=== PATIENT | male | born 1940 | race Caucasian/White ===

== ENCOUNTER 2020-05-14 08:31 | Outpatient (REF) | payer MEDICARE, SELFPAY ==
[2020-05-14 10:21] LABS: MANUAL DIFF FLAG NO
[2020-05-14 10:46] LABS: Basophils Absolute Auto 0.1 X10*3/uL (0.0-0.2); Basophils Percent Auto 1.2 % (0-2); Eosinophils Absolute Auto 0.1 X10*3/uL (0.0-0.4); Eosinophils Percent Auto 2.5 % (0-4); Hematocrit 43.2 % (42-52); Hemoglobin 15.1 g/dl (14.0-18.0); Imm Gran Abs Auto 0.02 X10*3/uL (0.00-0.03); Imm Gran Pct Auto 0.4 % (0.0-0.4); Lymphocytes Absolute Auto 1.2 X10*3/uL (1.2-4.9); Lymphocytes Percent Auto 21.9 % (20-40); Mean Corpuscular Hemoglobin 32.8 pg (27.0-33.0); Mean Corpuscular Volume 93.7 fL (80-98); Mean Platelet Volume 9.5 fL (9.4-12.4); Monocytes Absolute Auto 0.6 X10*3/uL (0.1-1.2); Monocytes Percent Auto 10.4 % (2-11); Neutrophils Absolute Auto 3.6 X10*3/uL (2.0-8.3); Neutrophils Percent Auto 63.6 % (45-73); Platelet Count 328 X10*3/uL (160-400); Red Blood Count 4.61 X10*6/uL (4.60-5.80); Red Cell Distribution Width 11.9 % (11.0-16.0); White Blood Count 5.7 X10*3/uL (4.8-10.8)
[2020-05-14 11:01] LABS: Glucose Urine UA NEG (NEG); Leukocyte Esterase Urine NEG (NEG); Nitrite Urine NEG (NEG); Specific Gravity - Urine 1.025 (1.005-1.025); Urine Blood NEG (NEG); Urine Ketones NEG (NEG); Urine Protein NEG (NEG-TRACE)
[2020-05-14 11:08] LABS: Appearance Urine CLEAR; Color Urine YELLOW; UACC Culture Trigger NO
[2020-05-14 11:17] LABS: Alanine Aminotransferase 19 U/L (0-40); Albumin Level 4.5 g/dL (3.5-5.0); Alkaline Phosphatase 78 U/L (39-117); Anion Gap 12 (12-20); Aspartate Amino Transferase 21 U/L (5-37); Blood Urea Nitrogen 20 mg/dL (9-16); Calcium 9.4 mg/dL (8.4-10.2); Carbon Dioxide 26 mmol/L (22-29); Chloride 101 mmol/L (96-108); Cholesterol 190 mg/dL; Estimated Glomerular Filt Rate > 60; Glucose Fasting 103 mg/dL (60-99); HDL Cholesterol 60 mg/dL; LDL Cholesterol Calculated 118 mg/dl; Potassium 4.4 mmol/l (3.3-5.1); Sodium 135 mmol/L (135-145); Total Protein 7.8 g/dL (6.5-8.0); Triglycerides 64 mg/dL; Uric Acid 5.7 mg/dL (3.4-7.0)
[2020-05-14 11:27] LABS: Mucus Urine 3+ /LPF; RBC Urine 0 /HPF (0); WBC Urine 0 /HPF (0-4)
[2020-05-14 11:39] LABS: TSH reflex Free T4 1.58 mIU/mL (0.32-4.0)
== END 2020-05-14 08:32 | disposition home or self-care (01) ==
LOC: HO.10HDL 08:31
PROVIDERS: Visit Provider Internal Medicine
DX: I10 Essential (primary) hypertension (principal); E78.5 Hyperlipidemia, unspecified; R73.01 Impaired fasting glucose; E79.0 Hyperuricemia without signs of inflammatory arthritis and tophaceous disease; K21.9 Gastro-esophageal reflux disease without esophagitis; E66.9 Obesity, unspecified
CPT/HCPCS: 36415; 80053; 80061; 81003; 81015; 84443; 84550; 85025

== ENCOUNTER 2020-06-12 10:37 | Outpatient (REF) | payer MEDICARE, SELFPAY | END 2020-06-12 10:38 | disposition home or self-care (01) | LOC: HO.LAB 10:37 | PROVIDERS: PCP Internal Medicine; Visit Provider Internal Medicine | DX: Z20.828 Contact with and (suspected) exposure to other viral communicable diseases (principal) | CPT/HCPCS: C9803; U0003 ==

== ENCOUNTER 2020-07-31 14:22 | Outpatient (REF) | payer MEDICARE, SELFPAY | END 2020-07-31 14:23 | disposition home or self-care (01) | LOC: HO.LAB 14:22 | PROVIDERS: PCP Internal Medicine; Visit Provider Internal Medicine | DX: Z20.828 Contact with and (suspected) exposure to other viral communicable diseases (principal) | CPT/HCPCS: 36415; U0003 ==

== ENCOUNTER 2020-08-27 | Outpatient (REF) | payer MEDICARE, SELFPAY | END 2020-08-27 00:01 | disposition home or self-care (01) | LOC: HO.VC | PROVIDERS: Visit Provider Internal Medicine | DX: Z23 Encounter for immunization (principal) | CPT/HCPCS: 0011A ==

== ENCOUNTER 2020-09-15 07:43 | Outpatient (REF) | payer MEDICARE, SELFPAY ==
[2020-09-15 10:18] LABS: MANUAL DIFF FLAG NO
[2020-09-15 10:22] LABS: Basophils Absolute Auto 0.1 X10*3/uL (0.0-0.2); Eosinophils Absolute Auto 0.1 X10*3/uL (0.0-0.4); Eosinophils Percent Auto 2.9 % (0-4); Hematocrit 40.7 % (42-52); Imm Gran Abs Auto 0.01 X10*3/uL (0.00-0.03); Imm Gran Pct Auto 0.2 % (0.0-0.4); Lymphocytes Absolute Auto 1.1 X10*3/uL (1.2-4.9); Lymphocytes Percent Auto 23.1 % (20-40); Mean Corpuscular HGB Conc 34.4 g/dl (31.0-36.0); Mean Corpuscular Hemoglobin 32.2 pg (27.0-33.0); Mean Corpuscular Volume 93.6 fL (80-98); Mean Platelet Volume 9.7 fL (9.4-12.4); Monocytes Absolute Auto 0.5 X10*3/uL (0.1-1.2); Neutrophils Percent Auto 61.8 % (45-73); Platelet Count 254 X10*3/uL (160-400); Red Blood Count 4.35 X10*6/uL (4.60-5.80); Red Cell Distribution Width 11.9 % (11.0-16.0); White Blood Count 4.9 X10*3/uL (4.8-10.8)
[2020-09-15 10:43] LABS: Glucose Urine UA NEG (NEG); Leukocyte Esterase Urine NEG (NEG); Nitrite Urine NEG (NEG); Specific Gravity - Urine >= 1.030 (1.005-1.025); Urine Blood NEG (NEG); Urine Ketones NEG (NEG); Urine Protein NEG (NEG-TRACE)
[2020-09-15 10:50] LABS: Alanine Aminotransferase 18 U/L (0-40); Albumin Level 4.1 g/dL (3.5-5.0); Alkaline Phosphatase 69 U/L (39-117); Anion Gap 10 (12-20); Aspartate Amino Transferase 19 U/L (5-37); Bilirubin Total 0.9 mg/dL (0.0-1.0); Blood Urea Nitrogen 23 mg/dL (9-16); Calcium 8.9 mg/dL (8.4-10.2); Carbon Dioxide 29 mmol/L (22-29); Chloride 106 mmol/L (96-108); Cholesterol 165 mg/dL; Estimated Glomerular Filt Rate > 60; Glucose Fasting 103 mg/dL (60-99); HDL Cholesterol 52 mg/dL; LDL Cholesterol Calculated 103 mg/dl; Potassium 4.5 mmol/L (3.3-5.1); Sodium 140 mmol/L (135-145); Triglycerides 54 mg/dL
[2020-09-15 10:54] LABS: Appearance Urine HAZY; Color Urine YELLOW
[2020-09-15 11:16] LABS: TSH reflex Free T4 1.76 uIU/mL (0.32-4.0)
== END 2020-09-15 07:44 | disposition home or self-care (01) ==
LOC: HO.10HDL 07:43
PROVIDERS: Visit Provider Internal Medicine
DX: I10 Essential (primary) hypertension (principal); K21.9 Gastro-esophageal reflux disease without esophagitis; E78.00 Pure hypercholesterolemia, unspecified
CPT/HCPCS: 36415; 80053; 80061; 81003; 84443; 85025

== ENCOUNTER 2020-09-24 | Outpatient (REF) | payer MEDICARE, SELFPAY | END 2020-09-24 00:01 | disposition home or self-care (01) | LOC: HO.VC | PROVIDERS: Visit Provider Internal Medicine | DX: Z23 Encounter for immunization (principal) | CPT/HCPCS: 0012A ==

== ENCOUNTER 2021-01-19 07:43 | Outpatient (REF) | payer MEDICARE, SELFPAY ==
[2021-01-19 09:13] LABS: MANUAL DIFF FLAG NO
[2021-01-19 09:14] LABS: Glucose Urine UA NEG (NEG); Leukocyte Esterase Urine NEG (NEG); Nitrite Urine NEG (NEG); Urine Blood NEG (NEG); Urine Ketones NEG (NEG); Urine Protein NEG (NEG-TRACE)
[2021-01-19 09:19] LABS: Appearance Urine HAZY; Color Urine YELLOW
[2021-01-19 09:21] LABS: Basophils Absolute Auto 0.1 X10*3/uL (0.0-0.2); Basophils Percent Auto 1.2 % (0-2); Eosinophils Absolute Auto 0.1 X10*3/uL (0.0-0.4); Eosinophils Percent Auto 2.2 % (0-4); Hemoglobin 14.7 g/dl (14.0-18.0); Imm Gran Abs Auto 0.01 X10*3/uL (0.00-0.03); Imm Gran Pct Auto 0.2 % (0.0-0.4); Lymphocytes Absolute Auto 1.2 X10*3/uL (1.2-4.9); Lymphocytes Percent Auto 24.8 % (20-40); Mean Corpuscular HGB Conc 34.2 g/dl (31.0-36.0); Mean Corpuscular Hemoglobin 31.8 pg (27.0-33.0); Mean Corpuscular Volume 93.1 fL (80-98); Mean Platelet Volume 9.6 fL (9.4-12.4); Monocytes Absolute Auto 0.5 X10*3/uL (0.1-1.2); Monocytes Percent Auto 10.7 % (2-11); Neutrophils Percent Auto 60.9 % (45-73); Platelet Count 267 X10*3/uL (160-400); Red Blood Count 4.62 X10*6/uL (4.60-5.80); Red Cell Distribution Width 12.4 % (11.0-16.0)
[2021-01-19 09:37] LABS: Estimated Average Glucose 105 mg/dL; Hemoglobin A1C 137.4802 umol/L; Hemoglobin A1c % 5.3 %
[2021-01-19 09:44] LABS: Alanine Aminotransferase 20 U/L (0-40); Albumin Level 4.2 g/dL (3.5-5.0); Alkaline Phosphatase 70 U/L (39-117); Anion Gap 9 (12-20); Aspartate Amino Transferase 20 U/L (5-37); Bilirubin Total 0.9 mg/dL (0.0-1.0); Blood Urea Nitrogen 22 mg/dL (9-16); Calcium 9.5 mg/dL (8.4-10.2); Carbon Dioxide 30 mmol/L (22-29); Chloride 102 mmol/L (96-108); Cholesterol 181 mg/dL; Estimated Glomerular Filt Rate > 60; Glucose Fasting 109 mg/dL (60-99); HDL Cholesterol 63 mg/dL; LDL Cholesterol Calculated 107 mg/dl; Potassium 4.7 mmol/L (3.3-5.1); Sodium 136 mmol/L (135-145); Total Protein 7.2 g/dL (6.5-8.0); Triglycerides 57 mg/dL
[2021-01-19 10:04] LABS: TSH reflex Free T4 1.28 uIU/mL (0.32-4.0)
== END 2021-01-19 07:44 | disposition home or self-care (01) ==
LOC: HO.LAB 07:43
PROVIDERS: PCP Internal Medicine; Visit Provider Internal Medicine
DX: E78.00 Pure hypercholesterolemia, unspecified (principal); I10 Essential (primary) hypertension; R73.01 Impaired fasting glucose; E66.9 Obesity, unspecified; K21.9 Gastro-esophageal reflux disease without esophagitis
CPT/HCPCS: 36415; 80053; 80061; 81003; 83036; 84443; 85025

== ENCOUNTER 2021-06-05 09:44 | Outpatient (REF) | payer MEDICARE, SELFPAY ==
--- NOTE | ~2021-06-05 | XR_ITS ---
EXAMINATION: XR CHEST CLINICAL INFORMATION: Cough COMPARISON: None TECHNIQUE: 2 views of the chest were obtained. FINDINGS: The cardiac and mediastinal contours are normal. The lungs are clear. There is no pleural effusion or pneumothorax. There are degenerative changes of the spine. XR/XR chest 2V IMPRESSION: Unremarkable examination.
== END 2021-06-05 09:45 | disposition home or self-care (01) ==
LOC: HO.XRAY 09:44
PROVIDERS: PCP Internal Medicine; Visit Provider Internal Medicine
DX: R05.8 Other specified cough (principal); R07.89 Other chest pain; E78.00 Pure hypercholesterolemia, unspecified; I10 Essential (primary) hypertension
CPT/HCPCS: 71046

== ENCOUNTER → 2021-06-22 08:33 | Outpatient (REF) | payer MEDICARE, SELFPAY ==
--- NOTE | 2021-06-22 08:37 | CA_ITS ---
Acquisition Time: 2021-06-22 09:49:09 Total Exercise Time: 00:02:42 Test Indications: Dyspnea Medications: LOSARTAN SIMVASTATIN Protocol: MAJOR Max HR: 150 BPM 106% of Pred: 141 BPM Max BP: 150/083 mmHG Max Work Load: 4.6 METS Exercise stress test with exercise 2 min 42 sec of Major protocol, without anginal symptoms, with frequent PACs at baseline and throughout exercise and recovery, occassional PVCs, with brisk chronotropic response to exercise achieving 106% MPHR, with normotensive response to exercise, with borderline ST changes, without EKG changes meeting criteria for ischemia. Test reviewed with Dr. Logan. Message sent to Dr Vergara with recommendation for holter monitor, consider cardiology consult. Referred By: Mando Vergara Overread By: RAAD MEIER
== END ==
LOC: HO.CARD 08:33
PROVIDERS: Visit Provider Internal Medicine
DX: R07.89 Other chest pain (principal); I10 Essential (primary) hypertension; E78.00 Pure hypercholesterolemia, unspecified
CPT/HCPCS: 93017

== ENCOUNTER 2021-07-13 08:47 | Outpatient (REF) | payer MEDICARE, SELFPAY ==
--- NOTE | ~2021-07-13 | US_ITS ---
EXAMINATION: US ABDOMEN COMPLETE CLINICAL INFORMATION: Unspecified abdominal pain.GERD. COMPARISON: Abdominal ultrasound 07/22/2016 TECHNIQUE: Real-time imaging of the abdominal viscera. Technically difficult study secondary to bowel gas. FINDINGS: PANCREAS: The tail is obscured by overlying bowel gas but otherwise the pancreas is unremarkable. ABDOMINAL AORTA: Unremarkable INFERIOR VENA CAVA: Visualized portions are normal. LIVER: Normal. The liver is normal in size. The liver contour is normal. Parenchymal echogenicity is normal. No focal hepatic lesion. There is no intrahepatic biliary duct dilatation seen. The left hepatic lobe is suboptimally visualized secondary to bowel gas. GALLBLADDER: The gallbladder is physiologically distended without evidence of stones, polyps, wall thickening or pericholecystic fluid. Dense bile or sludge is evident within the gallbladder. There is no sonographic Barrett sign. COMMON BILE DUCT: Normal in caliber measuring 0.38 cm in diameter. RIGHT KIDNEY: Normal. No hydronephrosis. No renal calculi or focal parenchymal lesions. The kidney measures 12.0 cm in maximum dimension. LEFT KIDNEY: Normal. No hydronephrosis. No renal calculi or focal parenchymal lesions. The kidney measures 12.0 cm in maximum dimension. SPLEEN: Normal. The spleen measures 10.2 cm in maximum dimension. FREE FLUID: None. US/US abdomen complete IMPRESSION: 1. Dense bile or sludge within the gallbladder. 2. Otherwise unremarkable abdomen ultrasound.
== END 2021-07-13 08:48 | disposition home or self-care (01) ==
LOC: HO.HMGCX 08:47
PROVIDERS: PCP Internal Medicine; Visit Provider Internal Medicine
DX: R10.9 Unspecified abdominal pain (principal)
CPT/HCPCS: 76700

== ENCOUNTER 2021-07-23 11:44 | Outpatient (REF) | payer MEDICARE, SELFPAY ==
--- NOTE | ~2021-07-23 | XR_ITS ---
EXAMINATION: XR KNEE, RIGHT CLINICAL INFORMATION: Unspecified inferior right lower leg COMPARISON: None TECHNIQUE: Four views of the right knee. FINDINGS: No fracture or dislocation. There is mild tricompartmental cartilage space loss. Bony spurring in the patellofemoral compartment. Patellar tendon enthesophyte. Bony spurring in the tibial spines. No joint effusion. Vascular calcifications. XR/XR knee RT 3V IMPRESSION: Mild tricompartmental degenerative change.
== END 2021-07-23 11:45 | disposition home or self-care (01) ==
LOC: HO.XRAY 11:44
PROVIDERS: PCP Internal Medicine; Visit Provider Nurse Practitioner Acute Care
DX: S89.91XA Unspecified injury of right lower leg, initial encounter (principal)
CPT/HCPCS: 73562

== ENCOUNTER 2021-07-31 15:48 | Outpatient (REF) | payer MEDICARE, SELFPAY ==
[2021-07-31 16:47] LABS: Hematocrit 40.9 % (42.0-52.0); Hemoglobin 13.8 g/dl (14.0-18.0); Mean Corpuscular HGB Conc 33.7 g/dl (31.0-36.0); Mean Corpuscular Volume 91.9 fL (80.0-98.0); Mean Platelet Volume 9.6 fL (9.4-12.4); Platelet Count 275 X10*3/uL (160-400); Red Blood Count 4.45 X10*6/uL (4.60-5.80); Red Cell Distribution Width 12.2 % (11.0-16.0); White Blood Count 8.4 X10*3/uL (4.8-10.8)
[2021-07-31 17:07] LABS: Alanine Aminotransferase 21 U/L (0-40); Albumin Level 4.3 g/dL (3.5-5.0); Alkaline Phosphatase 83 U/L (39-117); Anion Gap 14 (12-20); Aspartate Amino Transferase 32 U/L (5-37); Bilirubin Total 0.7 mg/dL (0.0-1.0); Blood Urea Nitrogen 21 mg/dL (9-16); Calcium 9.7 mg/dL (8.4-10.2); Carbon Dioxide 26 mmol/L (22-29); Chloride 103 mmol/L (96-108); Estimated Glomerular Filt Rate > 60; Glucose Random 126 mg/dL (60-115); Potassium 4.9 mmol/L (3.3-5.1); Sodium 138 mmol/L (135-145); Total Protein 7.7 g/dL (6.5-8.0)
== END 2021-07-31 15:49 | disposition home or self-care (01) ==
LOC: HO.LAB 15:48
PROVIDERS: PCP Internal Medicine; Visit Provider Nurse Practitioner Family
DX: K21.9 Gastro-esophageal reflux disease without esophagitis (principal)
CPT/HCPCS: 36415; 80053; 85027

== ENCOUNTER → 2021-08-19 08:48 | Outpatient (BNVA) | payer MEDICARE, SELFPAY | PROVIDERS: PCP Internal Medicine; Referring Provider Internal Medicine; Visit Provider Internal Medicine | DX: R94.31 Abnormal electrocardiogram [ECG] [EKG] (principal); R06.02 Shortness of breath; I49.8 Other specified cardiac arrhythmias; I10 Essential (primary) hypertension | CPT/HCPCS: 93005; 99202 ==

== ENCOUNTER → 2021-08-21 12:51 | Outpatient (REF) | payer MEDICARE, SELFPAY ==
--- NOTE | 2021-08-21 07:44 | HM_ITS ---
Total monitoring time 4 days. Underlying rhythm is sinus. Minimum heart rate 52/Min. Maximum 145/Min. Average 80/Min. No atrial fibrillation or flutter or AV blocks or pauses. Frequent supraventricular ectopy. [place] of 6%. 12 supraventricular episodes, longest 8 beats. Occasional ventricular ectopy; 2 morphologies and 16 couplets; longest run 4 beats-1 episode. Overall burden 0.3%. No patient events. MTDD
--- NOTE | 2021-08-21 13:16 | CA_ITS ---
Transthoracic Echocardiogram Patient (Last, First, Middle): Luis Miguel Bass J Gender: Male Date of : 1940 Age: 81 Procedure Date: 08/21/2021 Procedure Type: Transthoracic Echocardiogram Location: OP Height: 187.96 cm Weight: 99.79 kg BSA: 2.26 m2 Heart Rate: bpm BP: 128 / 80 mmHg Business Systems Analyst: Referring MD: Seymour Logan MD Symptoms: R06.02 - Shortness of breath Study Quality: Fair ECG Rhythm: Sinus Conclusions: - 1. mildly reduced LV systolic function with LVEF of 45-50% with mild LVH with impaired relaxation filling pattern with regional wall motion abnormality in LAD territory 2. Normal cardiac valvular Doppler 3. Normal RV systolic pressure 4. No pericardial effusion Findings Left Ventricle Normal left ventricular cavity size. There is mildly increased left ventricular wall thickness. The left ventricular systolic function is mildly decreased. The visually estimated ejection fraction is between 45-50%. Spectral Doppler is indicative of an impaired relaxation filling pattern. E/E prime ratio is between 8 and 15 consistent with indeterminate filling pressures. Wall Motion Rest Echo Findings The mid anterior, mid inferoseptal, and mid anteroseptal segments are hypokinetic. The apex, apical anterior, apical lateral, and apical septum segments are akinetic. All other scored wall segments showed normal motion. Right Ventricle Normal right ventricular cavity size and systolic function. Atria The left atrium is normal in size. There is no evidence of interatrial shunt. The right atrium is normal in size. Aortic Valve The aortic valve structure and function is likely normal. There is no aortic valve stenosis. There is no aortic valve regurgitation. Mitral Valve There is mild anterior mitral leaflet thickening. There is mild mitral annular calcification. There is trace mitral valve regurgitation. There is no mitral valve stenosis. Pulmonic Valve The pulmonic valve was not well visualized. Tricuspid Valve Likely normal tricuspid valve structure and function. There is trace tricuspid valve regurgitation. The right ventricular systolic pressure is normal. The right ventricular systolic pressure is 24 mmHg. Normal right atrial pressure. There is no evidence of pulmonary hypertension. Great Vessels All visible segments of the aorta are normal in size. The pulmonary artery was not well visualized. Venous The inferior vena cava is normal in size and collapses greater than 50% with inspiration. Pericardium/Pleural There is no evidence of pericardial effusion. Prior Study Comparison No prior study available for comparison. Measurements 2D Linear Measurements IVSd: 1.28 0.6-0.9/0.6-1.0 cm LVIDd: 4.79 3.9-5.3/4.2-5.9 cm LVIDd Index: 2.12 2.4-3.2/2.2-3.1 cm/m2 LVIDs: 3.67 2.0-3.6 cm LVPWd: 1.22 0.7-1.1 cm LA Diam: 3.40 2.7-3.8/3.0-4.0 cm LAIDs Index: 1.50 1.5-2.3 cm/m2 LV Mass: 288.62 67-162/88-224 g LV Mass Index: 127.71 43-95/49-115 g/m2 LVOT Diam: 2.50 3.0+(-)1.3 cm 2D Systolic Function EF 4C: 51.90 >55% EF 2C: 42.40 >55% Mitral Valve MV Pk E: 0.59 MV PK A: 1.03 MV Decel Time: 166.00 E/A: 0.60 E'Lateral: 9.03 E'Medial: 6.85 E/E' Med: 8.60 E/E' Lat: 6.50 PHT: 49.00 MVA PHT: 4.49 Decel Dodge: 3.54 Aortic Valve AoV Pk Isidro: 1.37 AoV Mn Isidro: 0.87 AoV VTI: 0.26 AoV Pk Grad: 8.00 Aov Mn Grad: 4.00 VERONICA Cont.VTI: 3.10 LVOT LVOT Pk Isidro: 0.96 LVOT Mn Isidro: 0.65 LVOT VTI: 0.17 LVOT Pk Grad: 4.00 LVOT Mn Grad: 2.00 LVOT Diam: 2.50 LVOT Area: 4.91 Diastolic Function MV Pk E: 0.59 MV Pk A: 1.03 E/A: 0.60 E'Medial: 6.85 E/E' Med: 8.60 E' Laterial: 9.03 E/E' Lat: 6.50 Tricuspid Valve TR Pk Isidro: 2.28 TR Pk Grad: 21.00 RA Press: 3.00 RVSP: 24.00 Updated in Other Vendor System with Status of Final Tarik Thayer MD electronically signed on 08/21/2021 3:58:10 PM with status of Final
== END ==
LOC: HO.CARD 12:51
PROVIDERS: Visit Provider Internal Medicine
DX: I49.8 Other specified cardiac arrhythmias (principal)
CPT/HCPCS: 93242; 93306; Q9957

== ENCOUNTER 2021-08-24 14:42 | Outpatient (REF) | payer MEDICARE, SELFPAY ==
[2021-08-24 16:05] LABS: Hematocrit 40.6 % (42.0-52.0); Hemoglobin 13.7 g/dl (14.0-18.0); Mean Corpuscular HGB Conc 33.7 g/dl (31.0-36.0); Mean Corpuscular Volume 91.9 fL (80.0-98.0); Mean Platelet Volume 9.8 fL (9.4-12.4); Platelet Count 302 X10*3/uL (160-400); Red Blood Count 4.42 X10*6/uL (4.60-5.80); Red Cell Distribution Width 12.5 % (11.0-16.0); White Blood Count 6.3 X10*3/uL (4.8-10.8)
[2021-08-24 16:07] LABS: INTERNATIONAL NORM RATIO 1.1 (0.9-1.1); Prothrombin Time 12.7 SEC (9.9-13.0)
[2021-08-24 16:18] LABS: Anion Gap 13 (12-20); Blood Urea Nitrogen 20 mg/dL (9-16); Calcium 9.4 mg/dL (8.4-10.2); Carbon Dioxide 27 mmol/L (22-29); Chloride 104 mmol/L (96-108); Estimated Glomerular Filt Rate > 60; Glucose Random 119 mg/dL (60-115); Sodium 140 mmol/L (135-145)
== END 2021-08-24 14:43 | disposition home or self-care (01) ==
LOC: HO.LAB 14:42
PROVIDERS: PCP Internal Medicine; Referring Provider Internal Medicine; Visit Provider Internal Medicine
DX: I25.10 Atherosclerotic heart disease of native coronary artery without angina pectoris (principal); I10 Essential (primary) hypertension; I49.8 Other specified cardiac arrhythmias; Z79.899 Other long term (current) drug therapy; Z87.891 Personal history of nicotine dependence
CPT/HCPCS: 36415; 80048; 85027; 85610; 99212

== ENCOUNTER → 2021-09-03 12:36 | Outpatient (BNVA) | payer MEDICARE, SELFPAY | PROVIDERS: PCP Internal Medicine; Referring Provider Internal Medicine; Visit Provider Internal Medicine | DX: I25.10 Atherosclerotic heart disease of native coronary artery without angina pectoris (principal); I10 Essential (primary) hypertension; I49.8 Other specified cardiac arrhythmias | CPT/HCPCS: 99212 ==

== ENCOUNTER 2021-10-06 08:05 | Outpatient (REF) | payer MEDICARE, SELFPAY ==
[2021-09-07 13:12] VITALS: BP 118/64; BP 132/60
[2021-10-06 08:24] LABS: MANUAL DIFF FLAG NO
[2021-10-06 08:37] LABS: Basophils Absolute Auto 0.1 X10*3/uL (0.0-0.2); Basophils Percent Auto 0.9 % (0-2); Eosinophils Absolute Auto 0.1 X10*3/uL (0.0-0.4); Eosinophils Percent Auto 2.6 % (0-4); Hematocrit 38.2 % (42.0-52.0); Hemoglobin 12.8 g/dl (14.0-18.0); Imm Gran Abs Auto 0.01 X10*3/uL (0.00-0.03); Imm Gran Pct Auto 0.2 % (0.0-0.4); Lymphocytes Absolute Auto 1.1 X10*3/uL (1.2-4.9); Mean Corpuscular HGB Conc 33.5 g/dl (31.0-36.0); Mean Corpuscular Hemoglobin 31.3 pg (27.0-33.0); Mean Corpuscular Volume 93.4 fL (80.0-98.0); Mean Platelet Volume 9.9 fL (9.4-12.4); Monocytes Absolute Auto 0.6 X10*3/uL (0.1-1.2); Monocytes Percent Auto 10.4 % (2-11); Neutrophils Absolute Auto 3.5 x10*3/uL (2.0-8.3); Neutrophils Percent Auto 65.9 % (45-73); Platelet Count 226 X10*3/uL (160-400); Red Blood Count 4.09 X10*6/uL (4.60-5.80); Red Cell Distribution Width 12.9 % (11.0-16.0); White Blood Count 5.3 X10*3/uL (4.8-10.8)
[2021-10-06 08:50] LABS: Estimated Average Glucose 114 mg/dL; Hemoglobin A1c % 5.6 %
[2021-10-06 09:03] LABS: Appearance Urine CLEAR; Color Urine YELLOW; Glucose Urine UA NEG (NEG); Leukocyte Esterase Urine NEG (NEG); Nitrite Urine NEG (NEG); Specific Gravity - Urine 1.025 (1.005-1.025); Urine Blood NEG (NEG); Urine Ketones NEG (NEG); Urine Protein NEG (NEG-TRACE)
[2021-10-06 09:05] LABS: Alanine Aminotransferase 26 U/L (0-40); Albumin Level 3.9 g/dL (3.5-5.0); Alkaline Phosphatase 87 U/L (39-117); Anion Gap 12 (12-20); Aspartate Amino Transferase 23 U/L (5-37); Blood Urea Nitrogen 22 mg/dL (9-16); Calcium 9.1 mg/dL (8.4-10.2); Carbon Dioxide 27 mmol/L (22-29); Chloride 104 mmol/L (96-108); Cholesterol 128 mg/dL; Estimated Glomerular Filt Rate > 60; Glucose Fasting 95 mg/dL (60-99); HDL Cholesterol 42 mg/dL; LDL Cholesterol Calculated 76 mg/dl; Potassium 4.5 mmol/L (3.3-5.1); Sodium 138 mmol/L (135-145); Total Protein 6.8 g/dL (6.5-8.0); Triglycerides 51 mg/dL
[2021-10-06 09:20] LABS: TSH reflex Free T4 1.21 uIU/mL (0.32-4.0); Vitamin D 25-OH Total 41.7 ng/mL (>30)
== END 2021-10-06 08:06 | disposition home or self-care (01) ==
LOC: HO.LAB 08:05
PROVIDERS: PCP Internal Medicine; Visit Provider Internal Medicine
DX: E55.9 Vitamin D deficiency, unspecified (principal); E78.00 Pure hypercholesterolemia, unspecified; R73.01 Impaired fasting glucose; I10 Essential (primary) hypertension
CPT/HCPCS: 36415; 80053; 80061; 81003; 82306; 83036; 84443; 85025

== ENCOUNTER → 2021-12-02 09:18 | Outpatient (BNVA) | payer MEDICARE, SELFPAY ==
[2021-09-07 13:12] VITALS: BP 118/64; BP 132/60
[2021-12-01 09:44] VITALS: BP 118/60; BMI 28.0
== END ==
PROVIDERS: PCP Internal Medicine; Referring Provider Internal Medicine; Visit Provider Internal Medicine
DX: I25.10 Atherosclerotic heart disease of native coronary artery without angina pectoris (principal); I49.8 Other specified cardiac arrhythmias; I10 Essential (primary) hypertension
CPT/HCPCS: 99212

== ENCOUNTER 2022-01-26 07:40 | Outpatient (REF) | payer MEDICARE, SELFPAY ==
[2021-12-01 09:44] VITALS: BMI 28.0
[2022-01-26 07:39] VITALS: BP 100/48; BP 110/52
[2022-01-26 10:24] LABS: MANUAL DIFF FLAG NO
[2022-01-26 10:31] LABS: Basophils Absolute Auto 0.1 X10*3/uL (0.0-0.2); Basophils Percent Auto 1.4 % (0-2); Eosinophils Absolute Auto 0.2 X10*3/uL (0.0-0.4); Hematocrit 38.2 % (42.0-52.0); Hemoglobin 12.7 g/dl (14.0-18.0); Imm Gran Abs Auto 0.02 X10*3/uL (0.00-0.03); Imm Gran Pct Auto 0.4 % (0.0-0.4); Lymphocytes Absolute Auto 0.9 X10*3/uL (1.2-4.9); Lymphocytes Percent Auto 17.9 % (20-40); Mean Corpuscular HGB Conc 33.2 g/dl (31.0-36.0); Mean Corpuscular Hemoglobin 31.6 pg (27.0-33.0); Mean Platelet Volume 10.2 fL (9.4-12.4); Monocytes Absolute Auto 0.6 X10*3/uL (0.1-1.2); Monocytes Percent Auto 11.2 % (2-11); Neutrophils Absolute Auto 3.3 x10*3/uL (2.0-8.3); Neutrophils Percent Auto 66.1 % (45-73); Platelet Count 250 X10*3/uL (160-400); Red Blood Count 4.02 X10*6/uL (4.60-5.80); Red Cell Distribution Width 12.6 % (11.0-16.0); White Blood Count 4.9 X10*3/uL (4.8-10.8)
[2022-01-26 10:39] LABS: Estimated Average Glucose 111 mg/dL; Hemoglobin A1c % 5.5 %
[2022-01-26 10:43] LABS: Appearance Urine CLEAR; Color Urine YELLOW; Glucose Urine UA NEG (NEG); Leukocyte Esterase Urine NEG (NEG); Nitrite Urine NEG (NEG); Specific Gravity - Urine 1.025 (1.005-1.025); Urine Blood NEG (NEG); Urine Ketones NEG (NEG); Urine Protein NEG (NEG-TRACE)
[2022-01-26 10:46] LABS: Alanine Aminotransferase 15 U/L (0-40); Alkaline Phosphatase 89 U/L (39-117); Anion Gap 13 (12-20); Aspartate Amino Transferase 21 U/L (5-37); Bilirubin Total 0.9 mg/dL (0.0-1.0); Blood Urea Nitrogen 24 mg/dL (9-16); Calcium 8.7 mg/dL (8.4-10.2); Carbon Dioxide 25 mmol/L (22-29); Chloride 104 mmol/L (96-108); Cholesterol 148 mg/dL; Estimated Glomerular Filt Rate > 60; Glucose Fasting 101 mg/dL (60-99); HDL Cholesterol 50 mg/dL; LDL Cholesterol Calculated 86 mg/dl; Potassium 4.6 mmol/L (3.3-5.1); Sodium 137 mmol/L (135-145); Total Protein 6.9 g/dL (6.5-8.0); Triglycerides 60 mg/dL
[2022-01-26 11:12] LABS: TSH reflex Free T4 1.95 uIU/mL (0.32-4.0); Vitamin D 25-OH Total 39.9 ng/mL (>30)
== END 2022-01-26 07:41 | disposition home or self-care (01) ==
LOC: HO.10HDL 07:40
PROVIDERS: Visit Provider Internal Medicine
DX: I10 Essential (primary) hypertension (principal); R73.01 Impaired fasting glucose; E55.9 Vitamin D deficiency, unspecified; E78.00 Pure hypercholesterolemia, unspecified
CPT/HCPCS: 36415; 80053; 80061; 81003; 82306; 83036; 84443; 85025

== ENCOUNTER 2022-05-25 07:40 | Outpatient (REF) | payer MEDICARE, SELFPAY ==
[2021-12-22 07:52] VITALS: BMI 28.0
[2022-05-25 10:34] LABS: MANUAL DIFF FLAG NO
[2022-05-25 10:42] LABS: Basophils Absolute Auto 0.1 X10*3/uL (0.0-0.2); Eosinophils Absolute Auto 0.2 X10*3/uL (0.0-0.4); Eosinophils Percent Auto 3.1 % (0-4); Hematocrit 37.8 % (42.0-52.0); Hemoglobin 12.8 g/dl (14.0-18.0); Imm Gran Abs Auto 0.01 X10*3/uL (0.00-0.03); Imm Gran Pct Auto 0.2 % (0.0-0.4); Lymphocytes Absolute Auto 1.1 X10*3/uL (1.2-4.9); Lymphocytes Percent Auto 21.9 % (20-40); Mean Corpuscular HGB Conc 33.9 g/dl (31.0-36.0); Mean Corpuscular Hemoglobin 31.8 pg (27.0-33.0); Monocytes Absolute Auto 0.5 X10*3/uL (0.1-1.2); Monocytes Percent Auto 10.4 % (2-11); Neutrophils Absolute Auto 3.1 x10*3/uL (2.0-8.3); Neutrophils Percent Auto 63.4 % (45-73); Platelet Count 235 X10*3/uL (160-400); Red Blood Count 4.02 X10*6/uL (4.60-5.80); Red Cell Distribution Width 12.7 % (11.0-16.0); White Blood Count 4.9 X10*3/uL (4.8-10.8)
[2022-05-25 10:53] LABS: Alanine Aminotransferase 20 U/L (0-40); Albumin Level 3.9 g/dL (3.5-5.0); Alkaline Phosphatase 85 U/L (39-117); Anion Gap 16 (12-20); Aspartate Amino Transferase 26 U/L (5-37); Bilirubin Total 0.7 mg/dL (0.0-1.0); Blood Urea Nitrogen 23 mg/dL (9-16); Calcium 9.1 mg/dL (8.4-10.2); Carbon Dioxide 25 mmol/L (22-29); Chloride 102 mmol/L (96-108); Cholesterol 158 mg/dL; Estimated Glomerular Filt Rate > 60; Glucose Fasting 98 mg/dL (60-99); HDL Cholesterol 56 mg/dL; LDL Cholesterol Calculated 90 mg/dl; Potassium 4.5 mmol/L (3.3-5.1); Sodium 138 mmol/L (135-145); Triglycerides 62 mg/dL
[2022-05-25 10:54] LABS: Estimated Average Glucose 111 mg/dL; Hemoglobin A1c % 5.5 %
[2022-05-25 11:17] LABS: TSH reflex Free T4 2.33 uIU/mL (0.32-4.0); Vitamin D 25-OH Total 42.3 ng/mL (>30)
[2022-05-25 11:44] LABS: Appearance Urine Clear; Color Urine Yellow; Glucose Urine UA Negative (Negative); Leukocyte Esterase Urine Negative (Negative); Nitrite Urine Negative (Negative); Urine Blood Negative (Negative); Urine Ketones Negative (Negative); Urine Protein Negative (Neg-Trace)
== END 2022-05-25 07:41 | disposition home or self-care (01) ==
LOC: HO.10HDL 07:40
PROVIDERS: Visit Provider Internal Medicine
DX: R73.01 Impaired fasting glucose (principal); E55.9 Vitamin D deficiency, unspecified; I10 Essential (primary) hypertension; E78.00 Pure hypercholesterolemia, unspecified
CPT/HCPCS: 36415; 80053; 80061; 81003; 82306; 83036; 84443; 85025

== ENCOUNTER → 2022-08-31 08:46 | Outpatient (BNVA) | payer MEDICARE, SELFPAY ==
[2021-12-22 07:52] VITALS: BMI 28.0
== END ==
PROVIDERS: PCP Internal Medicine; Referring Provider Internal Medicine; Visit Provider Internal Medicine
DX: I25.10 Atherosclerotic heart disease of native coronary artery without angina pectoris (principal); I10 Essential (primary) hypertension; I49.8 Other specified cardiac arrhythmias; G47.9 Sleep disorder, unspecified; Z79.82 Long term (current) use of aspirin; Z79.899 Other long term (current) drug therapy
CPT/HCPCS: 93005; 99212

== ENCOUNTER 2022-09-30 07:45 | Outpatient (REF) | payer MEDICARE, SELFPAY ==
[2021-12-22 07:52] VITALS: BMI 28.0
[2022-09-30 10:45] LABS: Appearance Urine Clear; Color Urine Yellow; Glucose Urine UA Negative (Negative); Leukocyte Esterase Urine Negative (Negative); Nitrite Urine Negative (Negative); Specific Gravity - Urine 1.025 (1.005-1.025); Urine Blood Negative (Negative); Urine Ketones Trace mg/dL (Negative); Urine Protein Negative (Neg-Trace)
[2022-09-30 10:46] LABS: MANUAL DIFF FLAG NO
[2022-09-30 11:06] LABS: Basophils Absolute Auto 0.1 X10*3/uL (0.0-0.2); Basophils Percent Auto 1.1 % (0-2); Eosinophils Absolute Auto 0.1 X10*3/uL (0.0-0.4); Eosinophils Percent Auto 2.5 % (0-4); Hematocrit 39.2 % (42.0-52.0); Hemoglobin 13.2 g/dl (14.0-18.0); Imm Gran Abs Auto 0.01 X10*3/uL (0.00-0.03); Imm Gran Pct Auto 0.2 % (0.0-0.4); Lymphocytes Absolute Auto 1.1 X10*3/uL (1.2-4.9); Lymphocytes Percent Auto 19.5 % (20-40); Mean Corpuscular HGB Conc 33.7 g/dl (31.0-36.0); Mean Corpuscular Volume 94.9 fL (80.0-98.0); Mean Platelet Volume 10.3 fL (9.4-12.4); Monocytes Absolute Auto 0.6 X10*3/uL (0.1-1.2); Neutrophils Absolute Auto 3.7 x10*3/uL (2.0-8.3); Neutrophils Percent Auto 66.7 % (45-73); Platelet Count 225 X10*3/uL (160-400); Red Blood Count 4.13 X10*6/uL (4.60-5.80); Red Cell Distribution Width 12.5 % (11.0-16.0); White Blood Count 5.6 X10*3/uL (4.8-10.8)
[2022-09-30 11:18] LABS: Alanine Aminotransferase 29 U/L (0-40); Albumin Level 3.7 g/dL (3.5-5.0); Alkaline Phosphatase 79 U/L (39-117); Anion Gap 11 (12-20); Aspartate Amino Transferase 37 U/L (5-37); Bilirubin Total 1.1 mg/dL (0.0-1.0); Blood Urea Nitrogen 22 mg/dL (9-16); Calcium 8.7 mg/dL (8.4-10.2); Carbon Dioxide 29 mmol/L (22-29); Chloride 103 mmol/L (96-108); Cholesterol 151 mg/dL; Estimated Glomerular Filt Rate > 60; Glucose Fasting 90 mg/dL (60-99); HDL Cholesterol 50 mg/dL; LDL Cholesterol Calculated 90 mg/dl; Potassium 4.6 mmol/L (3.3-5.1); Sodium 138 mmol/L (135-145); Total Protein 6.7 g/dL (6.5-8.0); Triglycerides 57 mg/dL
[2022-09-30 11:35] LABS: Vitamin D 25-OH Total 36.5 ng/mL (>30)
== END 2022-09-30 07:46 | disposition home or self-care (01) ==
LOC: HO.10HDL 07:45
PROVIDERS: Visit Provider Internal Medicine
DX: R30.0 Dysuria (principal); E55.9 Vitamin D deficiency, unspecified; I10 Essential (primary) hypertension; E78.00 Pure hypercholesterolemia, unspecified
CPT/HCPCS: 36415; 80053; 80061; 81003; 82306; 84443; 85025

== ENCOUNTER → 2022-09-30 10:46 | Outpatient (REF) | payer MEDICARE, SELFPAY ==
[2021-12-22 07:52] VITALS: BMI 28.0
== END ==
LOC: HO.SL 10:46
PROVIDERS: Visit Provider Internal Medicine
DX: G47.33 Obstructive sleep apnea (adult) (pediatric) (principal)
CPT/HCPCS: 95806

== ENCOUNTER 2022-10-08 10:32 | Outpatient (REF) | payer MEDICARE, SELFPAY ==
[2021-12-22 07:52] VITALS: BMI 28.0
--- NOTE | ~2022-10-08 | XR_ITS ---
EXAMINATION: XR hip LT min 2V CLINICAL INFORMATION: Reason for Exam M25.552 - Pain in left hip COMPARISON: None TECHNIQUE: Two views of the hip. FINDINGS: No acute fracture or dislocation. Mild degenerative changes of the hip with degenerative spurring. Hip joint space is maintained. Atherosclerotic vascular calcification. Calcified phleboliths in the pelvis. XR/XR hip LT min 2V IMPRESSION: Mild degenerative changes of the left hip.
== END 2022-10-08 10:33 | disposition home or self-care (01) ==
LOC: HO.XRAY 10:32
PROVIDERS: PCP Internal Medicine; Visit Provider Internal Medicine
DX: M25.552 Pain in left hip (principal)
CPT/HCPCS: 73502

== ENCOUNTER 2022-11-08 10:57 | Outpatient (REF) | payer MEDICARE, SELFPAY ==
--- NOTE | ~2022-11-08 | XR_ITS ---
EXAMINATION: XR KNEE, RIGHT CLINICAL INFORMATION: Sprain. COMPARISON: None available. TECHNIQUE: Four views of the right knee. FINDINGS: The tricompartment joint space is maintained normal. There is posterior superior and inferior small patellar spurs and large anterior superior patellar enthesophytes. There is mild joint effusion. No visible acute fracture, dislocation or lytic process seen. No visible acute fracture or dislocation. XR/XR knee RT 4V IMPRESSION: No acute fracture or dislocation. Mild suprapatellar joint effusion. No loose body seen.
[2022-11-08 09:23] VITALS: BP 100/48; BP 110/52; BMI 28.0
== END 2022-11-08 10:58 | disposition home or self-care (01) ==
LOC: HO.HMGCX 10:57
PROVIDERS: PCP Internal Medicine; Visit Provider Internal Medicine
DX: S83.91XA Sprain of unspecified site of right knee, initial encounter (principal)
CPT/HCPCS: 73564

== ENCOUNTER → 2022-12-03 14:47 | Outpatient (BNVA) | payer MEDICARE, SELFPAY ==
[2022-11-08 09:23] VITALS: BP 100/48; BP 110/52; BMI 28.0
== END ==
PROVIDERS: PCP Internal Medicine; Visit Provider Nurse Practitioner Family
DX: G47.33 Obstructive sleep apnea (adult) (pediatric) (principal)
CPT/HCPCS: 99202

== ENCOUNTER 2023-02-08 07:39 | Outpatient (REF) | payer MEDICARE, SELFPAY ==
[2023-02-08 11:00] LABS: MANUAL DIFF FLAG NO
[2023-02-08 11:11] LABS: Basophils Absolute Auto 0.1 X10*3/uL (0.0-0.2); Basophils Percent Auto 0.9 % (0-2); Eosinophils Absolute Auto 0.2 X10*3/uL (0.0-0.4); Hematocrit 39.1 % (42.0-52.0); Hemoglobin 12.9 g/dl (14.0-18.0); Imm Gran Abs Auto 0.02 X10*3/uL (0.00-0.03); Imm Gran Pct Auto 0.4 % (0.0-0.4); Lymphocytes Absolute Auto 1.1 X10*3/uL (1.2-4.9); Lymphocytes Percent Auto 19.7 % (20-40); Mean Corpuscular Hemoglobin 31.6 pg (27.0-33.0); Mean Corpuscular Volume 95.8 fL (80.0-98.0); Mean Platelet Volume 10.1 fL (9.4-12.4); Monocytes Absolute Auto 0.7 X10*3/uL (0.1-1.2); Neutrophils Absolute Auto 3.4 x10*3/uL (2.0-8.3); Platelet Count 228 X10*3/uL (160-400); Red Blood Count 4.08 X10*6/uL (4.60-5.80); Red Cell Distribution Width 12.9 % (11.0-16.0); White Blood Count 5.4 X10*3/uL (4.8-10.8)
[2023-02-08 11:12] LABS: Appearance Urine Clear; Color Urine Yellow; Glucose Urine UA Negative (Negative); Leukocyte Esterase Urine Negative (Negative); Nitrite Urine Negative (Negative); PH 5.5 (5.0-9.0); Specific Gravity - Urine 1.025 (1.005-1.025); Urine Blood Negative (Negative); Urine Ketones Negative (Negative); Urine Protein Negative (Neg-Trace)
[2023-02-08 11:34] LABS: Alanine Aminotransferase 24 U/L (0-40); Albumin Level 3.8 g/dL (3.5-5.0); Alkaline Phosphatase 93 U/L (39-117); Anion Gap 9 (12-20); Aspartate Amino Transferase 34 U/L (5-37); Bilirubin Total 0.6 mg/dL (0.0-1.0); Blood Urea Nitrogen 34 mg/dL (9-16); Calcium 9.4 mg/dL (8.4-10.2); Carbon Dioxide 27 mmol/L (22-29); Chloride 103 mmol/L (96-108); Cholesterol 143 mg/dL; Estimated Glomerular Filt Rate > 60; Glucose Fasting 100 mg/dL (60-99); HDL Cholesterol 56 mg/dL; LDL Cholesterol Calculated 78 mg/dl; Potassium 4.4 mmol/L (3.3-5.1); Sodium 135 mmol/L (135-145); Total Protein 7.6 g/dL (6.5-8.0); Triglycerides 47 mg/dL
[2023-02-08 11:52] LABS: TSH reflex Free T4 2.21 uIU/mL (0.32-4.0); Vitamin D 25-OH Total 33.2 ng/mL (>30)
== END 2023-02-08 07:40 | disposition home or self-care (01) ==
LOC: HO.10HDL 07:39
PROVIDERS: Visit Provider Internal Medicine
DX: I10 Essential (primary) hypertension (principal); R30.0 Dysuria; E55.9 Vitamin D deficiency, unspecified; E78.00 Pure hypercholesterolemia, unspecified
CPT/HCPCS: 36415; 80053; 80061; 81003; 82306; 84443; 85025

== ENCOUNTER 2023-02-18 10:04 | Outpatient (AMB) | payer MEDICARE, SELFPAY ==
[2021-12-22 07:52] VITALS: BMI 28.0
[2023-02-18 10:10] VITALS: BP 116/78; PULSE 52; O2SAT 96; BMI 28.9
--- NOTE | 2023-02-18 10:10 | A.OFFPC_ITS ---
Vital Signs 02/18/23 10:10 Height 6 ft Weight 213 lb 6 oz BMI 28.9 BP 116/78 Blood Pressure Location Lt brachial Position Sitting Pulse 52 Pulse Source Pulse Oximeter Pulse Oximetry (%) 96 Oxygen Delivery Method Room Air Intake Visit Reasons: 4 MONTH FOOLOW UP Erection Shop Supervisor Required: No Accompanied by: Self / Same As Patient Allergies No Known Allergies Allergy (Verified 02/20/23 15:08) Medication List - Last Reconciled 02/20/23 by Mando Vergara MD aspirin (Enteric Coated Aspirin) 81 mg PO DAILY atorvastatin 80 mg PO QPM losartan-hydrochlorothiazide 50-12.5 mg 1 tab PO DAILY 90 days metoprolol succinate ER 25 mg PO DAILY Tobacco use date assessed: 02/18/23 Fall risk assessment: 1 Fall in past year Last assessed Fall Risk: 02/18/23 Dental Screening Dental Screen Date: 02/18/23 Did you have a dental visit in the last 12 months?: Yes Did you have a dental problem in the last 6 months where you did not have access to dental care?: No Was dental information given to patient?: Patient has dentist HPI 4 MONTH FOOLOW UP HPI Details Patient comes in today for his follow up visit Patient denies any headaches or dizziness Denies any chest pains, no shortness of breath No nausea/ vomiting, no abdominal pain No change in bowel habits noted Had his follow-up labs done last week - to discuss his results [facility] Medical History Benign essential hypertension GERD (gastroesophageal reflux disease) Impaired fasting glucose Obesity (BMI 30-39.9) Overweight (BMI 25.0-29.9) Pure hypercholesterolemia Surgical History History of bilateral cataract extraction History of cardiac catheterization (~08/28/21) History of cataract extraction with lens replacement (~02/2018) History of colonoscopy History of excision of lesion (~01/2014) History of squamous cell carcinoma excision (~07/2019) History of squamous cell carcinoma excision (~06/2017) History of vasectomy (~1970) Family History Father CVD (cardiovascular disease) Mother No problems noted. Brother Colon cancer Social History Housing: House Alcohol intake: current Alcohol intake frequency: holidays/special occasions on ly Patient Tobacco Use Status: Former Tobacco user e-Cigarette/Vaping Use: Never Used Second Hand Smoke Exposure: Yes service: Yes Current occupational status: retired Cognitive needs: No Hearing needs: No Vision needs: No Questionnaire PHQ-9 Over the last 2 weeks, how often have you been bothered by any of the following problems? 1. Little interest or pleasure in doing things: not at all 2. Feeling down, depressed, or hopeless: not at all 3. Trouble falling or staying asleep, or sleeping too much: not at all 4. Feeling tired or having little energy: not at all 5. Poor appetite or overeating: not at all 6. Feeling bad about yourself - or that you are a failure or have let yourself or your family down: not at all 7. Trouble concentrating on things, such as reading the newspaper or watching television: not at all 8. Moving or speaking so slowly that other people could have noticed. Or the opposite - being so fidgety or restless that you have been moving around a lot more than usual: not at all 9. Thoughts that you would be better off or of hurting yourself in some way: not at all Total score: 0 Depression Screening Interpretation: Negative 69402 - PHQ-9 Billing: Yes Source: Developed by Drs. Reese Santos, Fabiola Staley, Bhavin Webb and colleagues, with an educational valeriano from [employer]. Thrive Questionnaire Date Thrive assessed: 02/18/23 I am a: Patient What is your living situation today?: I have a steady place to live Within the past 12 months, did the food you bought not last and you didn't have the money to get more?: Never true Within the past 12 months, did you worry whether your food would run out before you got money to buy more?: Never true Do you have trouble paying for medicines?: No Do you have trouble getting transportation to medical appointments?: No Do you have trouble paying your heating and electricity bill?: No Do you have trouble taking care of your child, family member or friend?: No Do you have trouble with day-to-day activities such as bathing, preparing meals, shopping, managing finances, etc.?: No Are you currently unemployed and looking for a job?: No Are you interested in more education?: No Please select the resources that you would like help with: None Currently or been in a relationship where the following occur: no concerns reported AUDIT C Alcohol Use Questionnaire (AUDIT-C) 1. How often do you have a drink containing alcohol?: Never 3. How often do you have six or more drinks on one occasion?: Never Total Score: 0 Score Reviewed/Action Taken: Yes GONZALEZ-7 AMB Questionnaire GONZALEZ-7 Date GONZALEZ - 7 assessed: 02/18/23 Feeling nervous, anxious, or on edge: 0 = Not at all Not being able to stop or control worryin = Not at all Worrying too much about different things: 0 = Not at all Trouble relaxin = Not at all Being so restless that it is hard to sit still: 0 = Not at all Becoming easily annoyed or irritable: 0 = Not at all Feeling afraid as if something awful might happen: 0 = Not at all Total GONZALEZ-7 score (0-4 normal; 5-9 mild; 10-14 moderate; 15-21 severe): 0 Source: Developed by Drs. Reese Santos, Fabiola Staley, Bhavin Webb and colleagues, with an educational valeriano from [employer]. Review of Systems Const Denies fatigue, Denies fever(s) and Denies headache(s) ENT Denies dysphagia, Denies dizziness, Denies otalgia, Denies headache(s) and Denies sore throat Card Denies chest pain, Denies palpitations and Denies dyspnea Resp Denies cough and Denies dyspnea GI Denies abdominal pain, Denies constipation, Denies dysphagia, Denies heartburn, Denies diarrhea, Denies nausea and Denies vomiting Denies dysuria and Denies urinary frequency Musc Denies arthralgias (on and off over the left hip - pain has calmed down a lot lately) Neuro Denies dizziness and Denies headache(s) Endo Denies fatigue and Denies palpitations Physical exam (Primary Care) Vital Signs: Last Vital Signs Pulse 52 02/18/23 10:10 BP 116/78 07/28/23 10:10 Pulse Ox 96 02/18/23 10:10 Oxygen Delivery Method Room Air 02/18/23 10:10 BMI result Body Mass Index 28.9 Tobacco/Smoking Status: Tobacco use Status Tobacco use date assessed 02/18/23 02/18/23 10:15 Patient Tobacco Use Status Former Tobacco user 02/18/23 10:15 Tobacco use type 11/08/22 09:23 e-Cigarette/Vaping Use Never Used 02/18/23 10:15 PHQ-9: PHQ-9 Score PHQ-9: Total score 0 02/18/23 11:01 Depression Screening Interpretation: Negative Thrive Assessment: Date of Thrive Assessment Date Thrive assessed 02/18/23 02/18/23 10:15 Currently or been in a relationship where the following occur: no concerns reported Const General: no acute distress and alert Neck Neck: Yes no lymphadenopathy and Yes supple Resp Auscultation: clear to auscultation bilaterally, no rales and no wheezes Cardio Rate: regular rate Rhythm: regular rhythm Heart sounds: no murmurs GI Palpation (GI): Soft to palpation, nontender and No hepatosplenomegaly present Extrem Other: (+) brace on the right knee but no tenderness noted on exam of the knee General: Yes no clubbing, cyanosis or edema Results Reviewed Results Reviewed: Laboratory Tests 02/08/23 02/08/23 02/08/23 07:45 07:45 07:45 WBC 5.4 Hgb 12.9 L Hct 39.1 L Plt Count 228 Sodium 135 Potassium 4.4 Creatinine 1.15 Estimated GFR > 60 Fasting Glucose 100 H Calcium 9.4 D AST 34 ALT 24 Triglycerides 47 Cholesterol 143 LDL Cholesterol, Calc 78 HDL Cholesterol 56 25-OH Vitamin D Total 33.2 TSH 2.21 Ur Specific [place] 1.025 Urine Protein Negative Urine Glucose (UA) Negative Urine Blood Negative Assessment and Plan Assessment & Plan (1) Atherosclerotic cardiovascular disease: Comment: S/P cardiac cath and stenting of LAD on 08/28/2021 Code(s): I25.10 - Atherosclerotic heart disease of [place] coronary artery without angina pectoris Plan: S/P cardiac rehab with improvement of symptoms Continue Aspirin 81 mg QD and Metoprolol ER 25 mg QD; Brilinta was discontinued by cardiology after 1 year Follow up with cardiology as scheduled (2) Benign essential hypertension: Code(s): I10 - Essential (primary) hypertension Plan: Reinforced low sodium diet - goal is systolic BP of at least 140 to 150 mm or less Continue Losartan-HCT 50-12.5 mg QD; is also on Metoprolol ER 25 mg QD (3) Pure hypercholesterolemia: Code(s): E78.00 - Pure hypercholesterolemia, unspecified Plan: Results of his labs done last week reviewed and discussed with patient Reinforced low cholesterol diet Continue Simvastatin 20 mg QD Will recheck labs in 4 months for follow up (4) Impaired fasting glucose: Code(s): R73.01 - Impaired fasting glucose Plan: HgbA1c was normal at 5.5% and 5.6% when previously checked Reinforced low calories diet/exercise as tolerated (5) YUE (obstructive sleep apnea): Comment: Moderately severe, the AHI 19/hr and oxygen luz was 83%. Code(s): G47.33 - Obstructive sleep apnea (adult) (pediatric) Plan: Is currently on AutoPaP 6 to 16 cm H20; states that he has been doing well on his CPAP device but feels that his mask does not fit comfortable and plans to speak to sleep medicine about this at his next follow up appt Follow up with Sleep Medicine as scheduled (6) Left hip pain: Code(s): M25.552 - Pain in left hip Plan: States that his hip pain has subsided and has not been bothering him much lately Most likely due to OA and/or bursitis X-rays of the left hip done back in 2015 and again in September 2022 revealed (+) mild degenerative changes in the left hip (7) GERD (gastroesophageal reflux disease): Code(s): K21.9 - Gastro-esophageal reflux disease without esophagitis Qualifiers: Esophagitis presence: without esophagitis Qualified Code(s): K21.9 - Gastro-esophageal reflux disease without esophagitis Plan: Dietary restrictions reinforced Continue Omeprazole 20 mg QD (8) Overweight (BMI 25.0-29.9): Code(s): E66.3 - Overweight Plan: Reinforced diet/exercise as tolerated/lose weight Plan Follow up in 4 months Coding Level of Care Code Est Pt Level 4 (69057) Diagnoses Atherosclerotic cardiovascular disease I25.10 Benign essential hypertension I10 Pure hypercholesterolemia E78.00 Impaired fasting glucose R73.01 YUE (obstructive sleep apnea) G47.33 Left hip pain M25.552 GERD (gastroesophageal reflux disease) K21.9 Esophagitis presence: without esophagitis Overweight (BMI 25.0-29.9) E66.3
== END 2023-02-18 10:52 | disposition home or self-care (01) ==
PROVIDERS: PCP Internal Medicine; Visit Provider Internal Medicine
DX: I25.10 Atherosclerotic heart disease of native coronary artery without angina pectoris (principal); I10 Essential (primary) hypertension; E78.00 Pure hypercholesterolemia, unspecified; K21.9 Gastro-esophageal reflux disease without esophagitis; R73.01 Impaired fasting glucose; G47.33 Obstructive sleep apnea (adult) (pediatric); M25.552 Pain in left hip; E66.3 Overweight
CPT/HCPCS: 99214

== ENCOUNTER 2023-03-31 10:51 | Outpatient (AMB) | payer MEDICARE, SELFPAY ==
--- NOTE | 2023-03-31 10:53 | A.OFFVIS_ITS ---
Intake Vital Signs 03/31/23 10:55 Weight 213 lb BP 120/70 Blood Pressure Location Lt brachial Position Sitting Pulse 52 Pulse Source Pulse Oximeter Pulse Oximetry (%) 99 Oxygen Delivery Method Room Air Intake Visit Reasons: follow up YUE - Confirmed Intake Note: F/U sleep study Weight Recorder Required: No Allergies No Known Allergies Allergy (Verified 03/31/23 10:53) HPI HPI Comments History of Present Illness Details 83 y/o male patient presents with his wi fe for follow up of YUE on CPAP. Pt reports he sleeps better, but still wakes up couple of times but able to go back to sleep. He takes a short nap after lunch, but he is not tired. He feels his CPAP mask leaks a lot and moves up when he sleep. He did not have received supplies yet, also wants to try different CPAP mask. The CPAP compliance and therapy response (03/01/23-03/30/23) reviewed. He is on APAP [id number]. The usage days 97% and the average usage hours 7 hrs 50 min. The median pressure is 11.6 and the AHI was 3.8/hr. [facility] Medical History Benign essential hypertension GERD (gastroesophageal reflux disease) Impaired fasting glucose Obesity (BMI 30-39.9) Overweight (BMI 25.0-29.9) Pure hypercholesterolemia Surgical History History of bilateral cataract extraction History of cardiac catheterization (~08/28/21) History of cataract extraction with lens replacement (~02/2018) History of colonoscopy History of excision of lesion (~01/2014) History of squamous cell carcinoma excision (~07/2019) History of squamous cell carcinoma excision (~06/2017) History of vasectomy (~1970) Family History Father CVD (cardiovascular disease) Mother No problems noted. Brother Colon cancer Social History (Updated 03/31/23 @ 10:55 by Saadia Zepeda CMA) Housing: House Alcohol intake: current Alcohol intake frequency: holidays/special occasions only Patient Tobacco Use Status: Former Tobacco user e-Cigarette/Vaping Use: Never Used Second Hand Smoke Exposure: Yes service: Yes Current occupational status: retired Cognitive needs: No Hearing needs: No Vision needs: No Review of Systems Const All systems reviewed & are unremarkable except as noted in HPI and below ENT Reports Normal hearing present Neuro Reports Normal hearing present Physical Exam Vital Signs: Last Vital Signs Pulse 52 03/31/23 10:55 BP 120/70 03/31/23 10:55 Pulse Ox 99 03/31/23 10:55 Oxygen Delivery Method Room Air 03/31/23 10:55 Const General: cooperative Nutritional Appearance: overweight Orientation/consciousness: patient oriented x3 Neck Neck: Yes full ROM and Yes supple Resp Effort & Inspection: normal respiratory effort and able to speak in complete sentences Neuro General: patient oriented x3, gait normal and moves all extremities Cranial nerves: Yes Bilaterally intact EOM present, Yes Midline tongue present, Yes Symmetric palate elevation present, Yes Normal hearing present, Yes Ability to bilaterally rotate head present and Yes Ability to bilaterally elevate shoulders present Cognition (Neuro): normal cognition Gait exam (Neuro): Normal gait present Motor exam (neuro): 5/5 motor strength present throughout, Pronator motor function not present and no tremor noted Psych Appearance: grossly normal Mental Status: mental status grossly normal Speech and movement: Normal speech and movement present Affect: normal affect Attitude: cooperative Assessment & Plan Assessment & Plan (1) YUE (obstructive sleep apnea): Comment: Moderately severe, the AHI 19/hr and oxygen luz was 83%. Code(s): G47.33 - Obstructive sleep apnea (adult) (pediatric) Plan Continue to use APAP [id number] to treat YUE. Stressed compliance, use CPAP nightly and more than 4 hours. New mask fitting session and supplies ordered, and prescription given to patient. Advised patient to clean the mask and tubing regularly. Coding Level of Care Code Est Pt Level 3 (71101) Diagnoses YUE (obstructive sleep apnea) G47.33
[2023-03-31 10:55] VITALS: BP 120/70; PULSE 52; O2SAT 99
== END 2023-03-31 11:22 | disposition home or self-care (01) ==
PROVIDERS: Visit Provider Nurse Practitioner Family
DX: G47.33 Obstructive sleep apnea (adult) (pediatric) (principal)
CPT/HCPCS: 99213

== ENCOUNTER → 2023-03-31 10:51 | Outpatient (BNVA) | payer MEDICARE, SELFPAY | PROVIDERS: Visit Provider Nurse Practitioner Family | DX: G47.33 Obstructive sleep apnea (adult) (pediatric) (principal) | CPT/HCPCS: 99212 ==

== ENCOUNTER 2023-06-14 07:53 | Outpatient (REF) | payer MEDICARE, SELFPAY ==
[2023-06-14 10:32] LABS: MANUAL DIFF FLAG NO
[2023-06-14 10:41] LABS: Basophils Absolute Auto 0.1 X10*3/uL (0.0-0.2); Basophils Percent Auto 1.3 % (0-2); Eosinophils Absolute Auto 0.2 X10*3/uL (0.0-0.4); Eosinophils Percent Auto 3.2 % (0-4); Hematocrit 39.4 % (42.0-52.0); Hemoglobin 13.1 g/dl (14.0-18.0); Imm Gran Abs Auto 0.01 X10*3/uL (0.00-0.03); Imm Gran Pct Auto 0.2 % (0.0-0.4); Lymphocytes Absolute Auto 1.2 X10*3/uL (1.2-4.9); Lymphocytes Percent Auto 24.9 % (20-40); Mean Corpuscular HGB Conc 33.2 g/dl (31.0-36.0); Mean Corpuscular Hemoglobin 31.3 pg (27.0-33.0); Mean Corpuscular Volume 94.3 fL (80.0-98.0); Mean Platelet Volume 9.9 fL (9.4-12.4); Monocytes Absolute Auto 0.5 X10*3/uL (0.1-1.2); Monocytes Percent Auto 11.3 % (2-11); Neutrophils Absolute Auto 2.7 x10*3/uL (2.0-8.3); Neutrophils Percent Auto 59.1 % (45-73); Platelet Count 241 X10*3/uL (160-400); Red Blood Count 4.18 X10*6/uL (4.60-5.80); Red Cell Distribution Width 12.7 % (11.0-16.0); White Blood Count 4.6 X10*3/uL (4.8-10.8)
[2023-06-14 10:49] LABS: Estimated Average Glucose 114 mg/dL; Hemoglobin A1c % 5.6 % (<6.0)
[2023-06-14 11:04] LABS: Alanine Aminotransferase 20 U/L (0-40); Albumin Level 3.8 g/dL (3.5-5.0); Alkaline Phosphatase 109 U/L (39-117); Anion Gap 8 (12-20); Aspartate Amino Transferase 30 U/L (5-37); Bilirubin Total 0.8 mg/dL (0.0-1.0); Blood Urea Nitrogen 16 mg/dL (9-16); Calcium 9.1 mg/dL (8.4-10.2); Carbon Dioxide 30 mmol/L (22-29); Chloride 105 mmol/L (96-108); Cholesterol 134 mg/dL (<200); Estimated Glomerular Filt Rate > 60; Glucose Fasting 103 mg/dL (60-99); HDL Cholesterol 52 mg/dL (>40); LDL Cholesterol Calculated 73 mg/dL (<100); Potassium 4.3 mmol/L (3.3-5.1); Sodium 139 mmol/L (135-145); Total Protein 7.7 g/dL (6.5-8.0); Triglycerides 49 mg/dL (<150)
[2023-06-14 11:10] LABS: Appearance Urine Clear; Color Urine Yellow; Glucose Urine UA Negative (Negative); Leukocyte Esterase Urine Negative (Negative); Nitrite Urine Negative (Negative); PH 5.5 (5.0-9.0); Specific Gravity - Urine 1.025 (1.005-1.025); Urine Blood Negative (Negative); Urine Ketones Negative (Negative); Urine Protein Negative (Neg-Trace)
[2023-06-14 11:20] LABS: Vitamin D 25-OH Total 34.8 ng/mL (>30)
== END 2023-06-14 07:54 | disposition home or self-care (01) ==
LOC: HO.10HDL 07:53
PROVIDERS: Visit Provider Internal Medicine
DX: R30.0 Dysuria (principal); E55.9 Vitamin D deficiency, unspecified; E78.00 Pure hypercholesterolemia, unspecified; R73.01 Impaired fasting glucose; I10 Essential (primary) hypertension
CPT/HCPCS: 36415; 80053; 80061; 81003; 82306; 83036; 84443; 85025

== ENCOUNTER 2023-06-23 11:13 | Outpatient (AMB) | payer MEDICARE, SELFPAY ==
--- NOTE | 2023-06-23 11:52 | MHC.PC.OV ---
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 Fiber Technician: Not Required per policy Accompanied by: Self / Same As Patient Allergies No Known Allergies Allergy (Verified 06/23/23 12:22) Medication List - Last Reconciled 06/23/23 by Mando Vergara MD aspirin (Enteric Coated Aspirin) 81 mg PO DAILY atorvastatin 80 mg PO QPM losartan-hydrochlorothiazide 50-12.5 mg 1 tab PO DAILY 90 days metoprolol succinate ER 25 mg PO DAILY Tobacco use date assessed: 02/18/23 Fall risk assessment: No Falls in past year Last assessed Fall Risk: 06/23/23 Dental Screening Dental Screen Date: 06/23/23 Did you have a dental visit in the last 12 months?: Yes Did you have a dental problem in the last 6 months where you did not have access to dental care?: No Was dental information given to patient?: Patient has dentist HPI 4 MONTH F/U HPI Details Patient comes in today for his follow up visit States that he feels okay He denies any headaches or dizziness Denies any chest pains, no SOB No nausea/vomiting, no abdominal pain No change in bowel habits noted Needs all of his Rx refilled Had his follow up labs done last week - to discuss his results [facility] Medical History Overweight (BMI 25.0-29.9) Impaired fasting glucose Obesity (BMI 30-39.9) GERD (gastroesophageal reflux disease) Pure hypercholesterolemia Benign essential hypertension Surgical History History of cardiac catheterization (~08/28/21) History of cataract extraction with lens replacement (~02/2018) History of squamous cell carcinoma excision (~06/2017) History of excision of lesion (~01/2014) History of squamous cell carcinoma excision (~07/2019) History of bilateral cataract extraction History of colonoscopy History of vasectomy (~1969) Family History Father CVD (cardiovascular disease) Mother No problems noted. Brother Colon cancer Social History Housing: House Alcohol intake: current Alcohol intake frequency: holidays/special occasions only Patient Tobacco Use Status: Former Tobacco user e-Cigarette/Vaping Use: Never Used Second Hand Smoke Exposure: Yes service: Yes Current occupational status: retired Cognitive needs: No Hearing needs: No Vision needs: Yes Questionnaire PHQ-9 Over the last 2 weeks, how often have you been bothered by any of the following problems? Depression Screening Interpretation: Negative Depression Screening Done: Yes Source: Developed by Drs. Reese Santos, Fabiola Staley, Bhavin Webb and colleagues, with an educational valeriano from [employer]. Thrive Questionnaire Date Thrive assessed: 02/18/23 Currently or been in a relationship where the following occur: no concerns reported GONZALEZ-7 AMB Questionnaire GONZALEZ-7 Date GONZALEZ - 7 assessed: 02/18/23 Source: Developed by Drs. Reese Santos, Fabiola Staley, Bhavin Webb and colleagues, with an educational valeriano from [employer]. Review of Systems Const Denies fatigue, Denies fever(s) and Denies headache(s) ENT Denies dysphagia, Denies dizziness, Denies otalgia, Denies headache(s) and Denies sore throat Card Denies chest pain, Denies palpitations and Denies dyspnea Resp Denies cough and Denies dyspnea GI Denies abdominal pain, Denies constipation, Denies dysphagia, Denies heartburn, Denies diarrhea, Denies nausea and Denies vomiting Denies dysuria and Denies urinary frequency Musc Denies back pain and Denies arthralgias Neuro Denies dizziness and Denies headache(s) Endo Denies fatigue and Denies palpitations Physical exam (Primary Care) Vital Signs: Last Vital Signs Pulse 47 L 06/23/23 11:53 BP 132/62 06/23/23 11:53 Pulse Ox 98 06/23/23 11:53 Oxygen Delivery Method Room Air 06/23/23 11:53 BMI result Body Mass Index 29.4 Tobacco/Smoking Status: Tobacco use Status Tobacco use date assessed 02/18/23 06/23/23 11:54 Patient Tobacco Use Status Former Tobacco user 06/23/23 11:54 Tobacco use type 11/08/22 09:23 e-Cigarette/Vaping Use Never Used 06/23/23 11:54 Depression Screening Interpretation: Negative Thrive Assessment: Date of Thrive Assessment Date Thrive assessed 02/18/23 06/23/23 11:54 Currently or been in a relationship where the following occur: no concerns reported Const General: no acute distress and alert Neck Neck: Yes no lymphadenopathy and Yes supple Resp Auscultation: clear to auscultation bilaterally, no rales and no wheezes Cardio Rate: regular rate Rhythm: regular rhythm Heart sounds: no murmurs GI Palpation (GI): Soft to palpation and nontender Auscultation: normal bowel sounds General: Yes no CVA tenderness Back/Spine/Pelvis Back: no CVA tenderness Skin Rashes: no rashes Extrem General: Yes no clubbing, cyanosis or edema Results Reviewed Results Reviewed: Laboratory Tests 06/14/23 08:00 WBC 4.6 L Hgb 13.1 L Hct 39.4 L Plt Count 241 Sodium 139 Potassium 4.3 Creatinine 0.85 Estimated GFR > 60 Fasting Glucose 103 H Hemoglobin A1c % 5.6 Calcium 9.1 AST 30 ALT 20 Triglycerides 49 Cholesterol 134 LDL Cholesterol, Calc 73 HDL Cholesterol 52 25-OH Vitamin D Total 34.8 TSH 2.60 Ur Specific [place] 1.025 Urine Protein Negative Urine Glucose (UA) Negative Urine Blood Negative Assessment and Plan Assessment & Plan (1) Atherosclerotic cardiovascular disease: Comment: S/P cardiac cath and stenting of LAD on 08/28/2021 Code(s): I25.10 - Atherosclerotic heart disease of [place] coronary artery without angina pectoris Plan: S/P cardiac rehab with improvement of symptoms Continue Aspirin 81 mg QD and Metoprolol ER 25 mg QD; Brilinta was discontinued by cardiology after 1 year Follow up with cardiology as scheduled (2) Benign essential hypertension: Code(s): I10 - Essential (primary) hypertension Plan: Reinforced low sodium diet - goal is systolic BP of at least 140 to 150 mm or less Continue Losartan-HCT 50-12.5 mg QD; is also on Metoprolol ER 25 mg QD (3) Pure hypercholesterolemia: Code(s): E78.00 - Pure hypercholesterolemia, unspecified Plan: Results of his labs done last week reviewed and discussed with patient Reinforced low cholesterol diet Continue Simvastatin 20 mg QD Will recheck his labs and fasting lipids in 4 months for follow up (4) Impaired fasting glucose: Code(s): R73.01 - Impaired fasting glucose Plan: HgbA1c was normal at 5.6% on his recent labs Reinforced low calories diet/exercise as tolerated (5) YUE (obstructive sleep apnea): Comment: Moderately severe, the AHI 19/hr and oxygen luz was 83%. Code(s): G47.33 - Obstructive sleep apnea (adult) (pediatric) Plan: Is currently on AutoPaP 6 to 16 cm H20; states that he has been doing well on his CPAP device Follow up with Sleep Medicine as scheduled (6) GERD (gastroesophageal reflux disease): Code(s): K21.9 - Gastro-esophageal reflux disease without esophagitis Qualifiers: Esophagitis presence: without esophagitis Qualified Code(s): K21.9 - Gastro-esophageal reflux disease without esophagitis Plan: Dietary restrictions reinforced Continue Omeprazole 20 mg QD (7) Overweight (BMI 25.0-29.9): Code(s): E66.3 - Overweight Plan: Reinforced diet/exercise as tolerated/lose weight Plan Follow up in 4 months Orders: Orders Comprehensive [place]. Panel Fast 4 Months E78.00 - Pure hypercholesterolemia, unspecified TSH reflex Free T4 4 Months E78.00 - Pure hypercholesterolemia, unspecified UA CC w/rflx Micro + Cult 4 Months R30.0 - Dysuria Vitamin D 25-OH Total 4 Months E55.9 - Vitamin D deficiency, unspecified Complete Blood Count Auto Diff 4 Months I10 - Essential (primary) hypertension Lipid Panel 4 Months E78.00 - Pure hypercholesterolemia, unspecified Medications: Refilled losartan-hydrochlorothiazide 50-12.5 mg 1 tab PO DAILY 90 days 90 tabs 3RF I10 - Essential (primary) hypertension atorvastatin 80 mg PO QPM 90 tabs 3RF metoprolol succinate ER 25 mg PO DAILY 90 tabs 3RF I25.10 - Atherosclerotic heart disease of [place] coronary artery without angina pectoris Coding Level of Care Code Est Pt Level 4 (56383) Diagnoses Atherosclerotic cardiovascular disease I25.10 Benign essential hypertension I10 Pure hypercholesterolemia E78.00 Impaired fasting glucose R73.01 YUE (obstructive sleep apnea) G47.33 Gastroesophageal reflux disease without esophagitis K21.9 Esophagitis presence: without esophagitis Overweight (BMI 25.0-29.9) E66.3
[2023-06-23 11:53] VITALS: BP 132/62; PULSE 47; O2SAT 98; BMI 29.4
== END 2023-06-23 12:32 | disposition home or self-care (01) ==
PROVIDERS: PCP Internal Medicine; Visit Provider Internal Medicine
DX: I25.10 Atherosclerotic heart disease of native coronary artery without angina pectoris (principal); I10 Essential (primary) hypertension; E78.00 Pure hypercholesterolemia, unspecified; R73.01 Impaired fasting glucose; G47.33 Obstructive sleep apnea (adult) (pediatric); K21.9 Gastro-esophageal reflux disease without esophagitis; E66.3 Overweight
CPT/HCPCS: 99214

== ENCOUNTER 2023-09-05 09:00 | Outpatient (AMB) | payer MEDICARE, SELFPAY ==
[2021-12-22 07:52] VITALS: BMI 28.0
--- NOTE | 2023-09-05 09:08 | A.OFFVIS_ITS ---
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 Due to symptoms of shortness of breath, he underwent further workup that led to cardiac catheterization and LAD stenting. He states that he is doing quite well. No symptoms like angina or shortness of breath or any cardiac symptoms at all. [facility] Medical History Overweight (BMI 25.0-29.9) Impaired fasting glucose Obesity (BMI 30-39.9) GERD (gastroesophageal reflux disease) Pure hypercholesterolemia Benign essential hypertension Surgical History History of cardiac catheterization (~08/28/21) History of cataract extraction with lens replacement (~02/2018) History of squamous cell carcinoma excision (~06/2017) History of excision of lesion (~01/2014) History of squamous cell carcinoma excision (~07/2019) History of bilateral cataract extraction History of colonoscopy History of vasectomy (~1969) Family History Father CVD (cardiovascular disease) Mother No problems noted. Brother Colon cancer Social History Housing: House Alcohol intake: current Alcohol intake frequency: holidays/special occasions only Patient Tobacco Use Status: Former Tobacco user e-Cigarette/Vaping Use: Never Used Second Hand Smoke Exposure: Yes service: Yes Current occupational status: retired Cognitive needs: No Hearing needs: No Vision needs: Yes Review of Systems Const Denies weakness ENT Denies dizziness Card Denies chest pain, Denies chest pain with activity, Denies syncope, Denies rapid heart rate, Denies pedal edema, Denies edema, Denies leg edema, Denies lightheadedness, Denies palpitations, Denies dyspnea, Denies dyspnea on exertion and Denies orthopnea Resp Denies cough, Denies dyspnea and Denies dyspnea on exertion GI Denies hematochezia and Denies change in stool character Musc Denies abnormal gait, Denies muscle cramps, Denies muscle weakness, Denies numbness, Denies radiating pain into limb and Denies tingling Neuro Denies abnormal gait, Denies dizziness, Denies syncope, Denies numbness, Denies tingling and Denies weakness Endo Denies palpitations Physical Exam Vital Signs: Last Vital Signs Pulse 50 09/05/23 09:09 BP 138/66 09/05/23 09:09 BMI result Body Mass Index 29.7 Const General: comfortable and no acute distress Orientation/consciousness: patient oriented x3 HEENT Other: Unremarkable Head: Yes normal to inspection Neck Neck: Yes normal visual inspection Chest Chest palpation & inspection: normal inspection of the chest Resp Auscultation: clear to auscultation bilaterally Cardio Palpation: normal PMI Heart sounds: S1 normal heart sound present, S2 normal heart sound present, no gallops, no murmurs and no rubs GI Palpation (GI): Soft to palpation Back/Spine/Pelvis Other: unremarkable Skin General skin exam: no rashes or lesions noted Neuro General: patient oriented x3 Extrem General: Yes normal to inspection Psych Mental Status: mental status grossly normal Office Procedures EKG Details: EKG with sinus bradycardia 50/Min; can not exclude old septal infarct; [place] [id number], Complete Assessment & Plan Assessment & Plan (1) Atherosclerotic cardiovascular disease: Comment: S/P cardiac cath and stenting of LAD on 08/28/2021 Code(s): I25.10 - Atherosclerotic heart disease of [place] coronary artery without angina pectoris Plan: Cardiac catheterization showed LAD as well as RCA disease. Status post LAD stenting. RCA is for medical management. Continue aspirin, beta-blockers and statins. LDL cholesterol in the 70s. (2) Essential hypertension: Code(s): I10 - Essential (primary) hypertension Plan: On losartan/HCTZ. (3) Atrial arrhythmia: Code(s): I49.8 - Other specified cardiac arrhythmias Plan: Holter shows underlying sinus rhythm with frequent PACs, short runs and occasional ventricular ectopy. Continue beta-blockers. (4) YUE (obstructive sleep apnea): Comment: Moderately severe, the AHI 19/hr and oxygen luz was 83%. Code(s): G47.33 - Obstructive sleep apnea (adult) (pediatric) Plan: Continue CPAP. Coding Level of Care Code Est Pt Level 4 (11039) Diagnoses Atherosclerotic cardiovascular disease I25.10 Essential hypertension I10 Atrial arrhythmia I49.8 YUE (obstructive sleep apnea) G47.33 CPT Codes EKG - CPT: [id number], Complete ([id number])
[2023-09-05 09:09] VITALS: BP 138/66; PULSE 50; BMI 29.7
== END 2023-09-05 09:26 | disposition home or self-care (01) ==
PROVIDERS: PCP Internal Medicine; Visit Provider Internal Medicine
DX: I25.10 Atherosclerotic heart disease of native coronary artery without angina pectoris (principal); I10 Essential (primary) hypertension; I49.8 Other specified cardiac arrhythmias; G47.33 Obstructive sleep apnea (adult) (pediatric)
CPT/HCPCS: 93010; 99214

== ENCOUNTER → 2023-09-05 09:00 | Outpatient (BNVA) | payer MEDICARE, SELFPAY | PROVIDERS: PCP Internal Medicine; Visit Provider Internal Medicine | DX: I25.10 Atherosclerotic heart disease of native coronary artery without angina pectoris (principal); I10 Essential (primary) hypertension; I49.8 Other specified cardiac arrhythmias; G47.33 Obstructive sleep apnea (adult) (pediatric) | CPT/HCPCS: 93005; 99212 ==

== ENCOUNTER 2023-10-10 07:52 | Outpatient (REF) | payer MEDICARE, SELFPAY ==
[2023-10-10 10:36] LABS: MANUAL DIFF FLAG NO
[2023-10-10 10:43] LABS: Appearance Urine Clear; Color Urine Yellow; Glucose Urine UA Negative (Negative); Leukocyte Esterase Urine Negative (Negative); Nitrite Urine Negative (Negative); Urine Blood Negative (Negative); Urine Ketones Negative (Negative); Urine Protein Negative (Neg-Trace)
[2023-10-10 10:44] LABS: Basophils Absolute Auto 0.1 X10*3/uL (0.0-0.2); Basophils Percent Auto 1.2 % (0-2); Eosinophils Absolute Auto 0.2 X10*3/uL (0.0-0.4); Eosinophils Percent Auto 3.8 % (0-4); Hemoglobin 12.9 g/dl (14.0-18.0); Imm Gran Abs Auto 0.01 X10*3/uL (0.00-0.03); Imm Gran Pct Auto 0.2 % (0.0-0.4); Lymphocytes Absolute Auto 1.2 X10*3/uL (1.2-4.9); Lymphocytes Percent Auto 22.8 % (20-40); Mean Corpuscular HGB Conc 33.9 g/dl (31.0-36.0); Mean Corpuscular Hemoglobin 31.5 pg (27.0-33.0); Mean Corpuscular Volume 92.7 fL (80.0-98.0); Monocytes Absolute Auto 0.5 X10*3/uL (0.1-1.2); Monocytes Percent Auto 10.5 % (2-11); Neutrophils Absolute Auto 3.1 x10*3/uL (2.0-8.3); Neutrophils Percent Auto 61.5 % (45-73); Platelet Count 220 X10*3/uL (160-400); Red Cell Distribution Width 13.1 % (11.0-16.0); White Blood Count 5.1 X10*3/uL (4.8-10.8)
[2023-10-10 11:26] LABS: Alanine Aminotransferase 26 U/L (0-40); Albumin Level 3.8 g/dL (3.5-5.0); Alkaline Phosphatase 107 U/L (39-117); Anion Gap 13 (12-20); Aspartate Amino Transferase 32 U/L (5-37); Bilirubin Total 0.6 mg/dL (0.0-1.0); Blood Urea Nitrogen 22 mg/dL (9-16); Calcium 9.4 mg/dL (8.4-10.2); Carbon Dioxide 26 mmol/L (22-29); Chloride 103 mmol/L (96-108); Cholesterol 144 mg/dL (<200); Estimated Glomerular Filt Rate > 60; Glucose Fasting 104 mg/dL (60-99); HDL Cholesterol 56 mg/dL (>40); LDL Cholesterol Calculated 80 mg/dL (<100); Potassium 4.5 mmol/L (3.3-5.1); Sodium 137 mmol/L (135-145); Total Protein 7.5 g/dL (6.5-8.0); Triglycerides 44 mg/dL (<150)
[2023-10-10 11:47] LABS: TSH reflex Free T4 2.32 uIU/mL (0.32-4.0); Vitamin D 25-OH Total 34.5 ng/mL (>30)
== END 2023-10-10 07:53 | disposition home or self-care (01) ==
LOC: HO.10HDL 07:52
PROVIDERS: Visit Provider Internal Medicine
DX: I10 Essential (primary) hypertension (principal); E78.00 Pure hypercholesterolemia, unspecified; E55.9 Vitamin D deficiency, unspecified; R30.0 Dysuria
CPT/HCPCS: 36415; 80053; 80061; 81003; 82306; 84443; 85025

== ENCOUNTER 2023-10-19 09:01 | Outpatient (AMB) | payer MEDICARE, SELFPAY ==
--- NOTE | 2023-10-19 09:15 | MHC.PC.OV ---
Vital Signs 10/19/23 09:16 Height 6 ft Weight 217 lb 8 oz BMI 29.5 BP 110/72 Blood Pressure Location Lt brachial Position Sitting Pulse 53 Pulse Source Pulse Oximeter Pulse Oximetry (%) 98 Oxygen Delivery Method Room Air Intake Visit Reasons: 4 month f/u Intake Note: Patient is here to follow up on YUE, HTN, IFG, GERD. Phys Ther Required: No Flight Operations Specialist: Not Required per policy Accompanied by: Self / Same As Patient Allergies No Known Allergies Allergy (Verified 10/19/23 09:45) Medication List - Last Reconciled 10/19/23 by Mando Vergara MD aspirin (Enteric Coated Aspirin) 81 mg PO DAILY atorvastatin 80 mg PO QPM losartan-hydrochlorothiazide 50-12.5 mg 1 tab PO DAILY 90 days metoprolol succinate ER 25 mg PO DAILY Tobacco use date assessed: 10/19/23 Fall risk assessment: No Falls in past year Last assessed Fall Risk: 10/19/23 Dental Screening Dental Screen Date: 10/19/23 Did you have a dental visit in the last 12 months?: Yes Did you have a dental problem in the last 6 months where you did not have access to dental care?: No Was dental information given to patient?: Patient has dentist HPI 4 month f/u HPI Details Patient comes in today for his follow up visit States that he feels okay except for some recurrent stiffness and sometimes pain in both of his hands - states that these are likely due to arthritis He denies any headaches or dizziness Denies any chest pains, no SOB No nausea/vomiting, no abdominal pain No change in bowel habits noted Had his follow up labs done last week - to discuss his results [facility] Medical History Overweight (BMI 25.0-29.9) Impaired fasting glucose Obesity (BMI 30-39.9) GERD (gastroesophageal reflux disease) Pure hypercholesterolemia Benign essential hypertension Surgical History History of cardiac catheterization (~08/28/21) History of cataract extraction with lens replacement (~02/2018) History of squamous cell carcinoma excision (~06/2017) History of excision of lesion (~01/2014) History of squamous cell carcinoma excision (~07/2019) History of bilateral cataract extraction History of colonoscopy History of vasectomy (~1970) Family History Father CVD (cardiovascular disease) Mother No problems noted. Brother Colon cancer Social History Housing: House Alcohol intake: current Alcohol intake frequency: holidays/special occasions only Patient Tobacco Use Status: Former Tobacco user e-Cigarette/Vaping Use: Never Used Second Hand Smoke Exposure: Yes service: Yes Current occupational status: retired Cognitive needs: No Hearing needs: No Vision needs: Yes Questionnaire PHQ-9 Over the last 2 weeks, how often have you been bothered by any of the following problems? 1. Little interest or pleasure in doing things: not at all 2. Feeling down, depressed, or hopeless: not at all 3. Trouble falling or staying asleep, or sleeping too much: not at all 4. Feeling tired or having little energy: not at all 5. Poor appetite or overeating: not at all 6. Feeling bad about yourself - or that you are a failure or have let yourself or your family down: not at all 7. Trouble concentrating on things, such as reading the newspaper or watching television: not at all 8. Moving or speaking so slowly that other people could have noticed. Or the opposite - being so fidgety or restless that you have been moving around a lot more than usual: not at all 9. Thoughts that you would be better off or of hurting yourself in some way: not at all Total score: 0 Depression Screening Interpretation: Negative Depression Screening Done: Yes 75192 - PHQ-9 Billing: Yes Source: Developed by Drs. Reese Santos, Fabiola Staley, Bhavin Webb and colleagues, with an educational valeriano from [employer]. Thrive Questionnaire Date Thrive assessed: 10/19/23 I am a: Patient What is your living situation today?: I have a steady place to live Within the past 12 months, did the food you bought not last and you didn't have the money to get more?: Never true Within the past 12 months, did you worry whether your food would run out before you got money to buy more?: Never true Do you have trouble paying for medicines?: No Do you have trouble getting transportation to medical appointments?: No Do you have trouble paying your heating and electricity bill?: No Do you have trouble taking care of your child, family member or friend?: No Do you have trouble with day-to-day activities such as bathing, preparing meals, shopping, managing finances, etc.?: No Are you currently unemployed and looking for a job?: No Are you interested in more education?: No Currently or been in a relationship where the following occur: no concerns reported THRIVE Score: 0 AUDIT C Alcohol Use Questionnaire (AUDIT-C) 1. How often do you have a drink containing alcohol?: Never Total Score: 0 Score Reviewed/Action Taken: Yes GONZALEZ-7 AMB Questionnaire GONZALEZ-7 Date GONZALEZ - 7 assessed: 10/19/23 Feeling nervous, anxious, or on edge: 0 = Not at all Not being able to stop or control worryin = Not at all Worrying too much about different things: 0 = Not at all Trouble relaxin = Not at all Being so restless that it is hard to sit still: 0 = Not at all Becoming easily annoyed or irritable: 0 = Not at all Feeling afraid as if something awful might happen: 0 = Not at all Total GONZALEZ-7 score (0-4 normal; 5-9 mild; 10-14 moderate; 15-21 severe): 0 Source: Developed by Drs. Reese Santos, Fabiola Staley, Bhavin Webb and colleagues, with an educational valeriano from [employer]. Review of Systems Const Denies fatigue, Denies fever(s) and Denies headache(s) ENT Denies dysphagia, Denies dizziness, Denies otalgia, Denies headache(s) and Denies sore throat Card Denies chest pain, Denies palpitations and Denies dyspnea Resp Denies cough and Denies dyspnea GI Denies abdominal pain, Denies constipation, Denies dysphagia, Denies heartburn, Denies diarrhea, Denies nausea and Denies vomiting Denies dysuria and Denies urinary frequency Musc Reports back pain (on and off lately), Reports arthralgias (on and off in both hands/fingers) and Reports stiffness (of the fingers on both hands) Skin/Breast Denies rash Neuro Denies dizziness and Denies headache(s) Endo Denies fatigue and Denies palpitations Physical exam (Primary Care) Vital Signs: Last Vital Signs Pulse 53 10/19/23 09:16 BP 110/72 10/19/23 09:16 Pulse Ox 98 10/19/23 09:16 Oxygen Delivery Method Room Air 10/19/23 09:16 BMI result Body Mass Index 29.5 Tobacco/Smoking Status: Tobacco use Status Tobacco use date assessed 10/19/23 10/19/23 09:23 Patient Tobacco Use Status Former Tobacco user 10/19/23 09:23 Tobacco use type 11/08/22 09:23 e-Cigarette/Vaping Use Never Used 10/19/23 09:23 PHQ-9: PHQ-9 Score PHQ-9: Total score 0 10/19/23 09:23 Depression Screening Interpretation: Negative Thrive Assessment: Date of Thrive Assessment Date Thrive assessed 10/19/23 10/19/23 09:23 Currently or been in a relationship where the following occur: no concerns reported Const General: no acute distress and alert HENMT Ears: TM's normal bilaterally and EAC's normal Throat: Yes posterior oropharynx normal and Yes tonsils normal Neck Neck: Yes no lymphadenopathy and Yes supple Thyroid: Thyroid normal Resp Auscultation: clear to auscultation bilaterally, no rales and no wheezes Cardio Rate: regular rate Rhythm: regular rhythm Heart sounds: no murmurs GI Palpation (GI): Soft to palpation and nontender Auscultation: normal bowel sounds General: Yes no CVA tenderness Back/Spine/Pelvis Back: no CVA tenderness Thoracic/Lumbar Spine: paraspinal muscle tenderness (mild) bilaterally and lumbar spinal tenderness (mild) Skin Rashes: no rashes Extrem General: Yes no clubbing, cyanosis or edema Results AMB Hemoglobin A1c AMB Hemoglobin A1c 5.6 % Last Edit by BAYRON Mccarthy on 10/19/23 09:28 Results Reviewed Results Reviewed: Laboratory Last Values Hgb A1c (Clinic) 5.6 % (4.0-6.0) 10/19/23 09:14 Laboratory Tests 10/10/23 08:00 WBC 5.1 Hgb 12.9 L Hct 38.0 L Plt Count 220 Sodium 137 Potassium 4.5 Creatinine 0.87 Estimated GFR > 60 Fasting Glucose 104 H Calcium 9.4 AST 32 ALT 26 Triglycerides 44 Cholesterol 144 LDL Cholesterol, Calc 80 HDL Cholesterol 56 25-OH Vitamin D Total 34.5 TSH 2.32 Ur Specific [place] 1.020 Urine Protein Negative Urine Glucose (UA) Negative Urine Blood Negative Urine Nitrite Negative Ur Leukocyte Esterase Negative Assessment and Plan Assessment & Plan (1) Atherosclerotic cardiovascular disease: Comment: S/P cardiac cath and stenting of LAD on 08/28/2021 Code(s): I25.10 - Atherosclerotic heart disease of [place] coronary artery without angina pectoris Plan: S/P cardiac cath and stenting of LAD on 08/28/2021 - symptoms and activity tolerance have improved with cardiac rehab Continue Aspirin 81 mg QD and Metoprolol ER 25 mg QD; Brilinta was discontinued by cardiology after 1 year Follow up with cardiology as scheduled (2) Pure hypercholesterolemia: Code(s): E78.00 - Pure hypercholesterolemia, unspecified Plan: Results of his labs done last week reviewed and discussed with patient Reinforced low cholesterol diet Continue Simvastatin 20 mg QD Will recheck his labs and fasting lipids in 4 months for follow up (3) Benign essential hypertension: Code(s): I10 - Essential (primary) hypertension Plan: Reinforced low sodium diet - goal is systolic BP of at least 140 to 150 mm or less Continue Losartan-HCT 50-12.5 mg QD; is also on Metoprolol ER 25 mg QD (4) Impaired fasting glucose: Code(s): R73.01 - Impaired fasting glucose Plan: In-office HgbA1c done today remained normal at 5.6% Reinforced low calorie/low carb diet; exercise as tolerated (5) YUE (obstructive sleep apnea): Comment: Moderately severe, the AHI 19/hr and oxygen luz was 83%. Code(s): G47.33 - Obstructive sleep apnea (adult) (pediatric) Plan: Is currently on AutoPaP 6 to 16 cm H20; states that he has been doing well on his CPAP device Follow up with Sleep Medicine as scheduled (6) GERD (gastroesophageal reflux disease): Code(s): K21.9 - Gastro-esophageal reflux disease without esophagitis Qualifiers: Esophagitis presence: without esophagitis Qualified Code(s): K21.9 - Gastro-esophageal reflux disease without esophagitis Plan: Dietary restrictions reinforced Continue Omeprazole 20 mg QD (7) Low back pain: Code(s): M54.50 - Low back pain, unspecified Qualifiers: Chronicity: unspecified Back pain laterality: bilateral Sciatica presence: without sciatica Qualified Code(s): M54.50 - Low back pain, unspecified Plan: Reinforced activity and weight-lifting restrictions Discussed that this is likely due to lumbosacral muscle strain but he may also likely have some degree of lumbar spondylosis to some extent and would recommend lumbar spine x-rays for further evaluation if his low back pain persists or progresses (8) Joint pain in fingers of both hands: Code(s): M25.541 - Pain in joints of right hand; M25.542 - Pain in joints of left hand Plan: Discussed that these are likely due to OA changes of both hands/fingers Have recommended that he does some hand and finger exercises regularly to help manage his symptoms May take OTC Tylenol PRN for pain and advised to let us know if his hand symptoms get worse (9) Overweight (BMI 25.0-29.9): Code(s): E66.3 - Overweight Plan: Reinforced diet/exercise as tolerated/lose weight Plan Follow up in 4 months Orders: Orders Complete Blood Count Auto Diff 4 Months D64.9 - Anemia, unspecified Lipid Panel 4 Months E78.00 - Pure hypercholesterolemia, unspecified AMB Hemoglobin A1c Today R73.01 - Impaired fasting glucose Comprehensive [place]. Panel Fast 4 Months E78.00 - Pure hypercholesterolemia, unspecified TSH reflex Free T4 4 Months E78.00 - Pure hypercholesterolemia, unspecified UA CC w/rflx Micro + Cult 4 Months R30.0 - Dysuria Vitamin D 25-OH Total 4 Months E55.9 - Vitamin D deficiency, unspecified Coding Level of Care Code Est Pt Level 4 (97642) Diagnoses Atherosclerotic cardiovascular disease I25.10 Pure hypercholesterolemia E78.00 Benign essential hypertension I10 Impaired fasting glucose R73.01 YUE (obstructive sleep apnea) G47.33 Gastroesophageal reflux disease without esophagitis K21.9 Esophagitis presence: without esophagitis Bilateral low back pain without sciatica, unspecified chronicity M54.50 Chronicity: unspecified Back pain laterality: bilateral Sciatica presence: without sciatica Joint pain in fingers of both hands M25.541; M25.542 Overweight (BMI 25.0-29.9) E66.3
[2023-10-19 09:16] VITALS: BP 110/72; PULSE 53; O2SAT 98; BMI 29.5
== END 2023-10-19 09:54 | disposition home or self-care (01) ==
PROVIDERS: PCP Internal Medicine; Visit Provider Internal Medicine
DX: I25.10 Atherosclerotic heart disease of native coronary artery without angina pectoris (principal); E78.00 Pure hypercholesterolemia, unspecified; I10 Essential (primary) hypertension; R73.01 Impaired fasting glucose; G47.33 Obstructive sleep apnea (adult) (pediatric); K21.9 Gastro-esophageal reflux disease without esophagitis; M54.50 Low back pain, unspecified; M25.541 Pain in joints of right hand; M25.542 Pain in joints of left hand; E66.3 Overweight
CPT/HCPCS: 83036; 99214

== ENCOUNTER 2024-02-13 07:45 | Outpatient (REF) | payer MEDICARE, SELFPAY ==
[2024-02-13 08:01] LABS: MANUAL DIFF FLAG NO
[2024-02-13 08:28] LABS: Basophils Absolute Auto 0.1 X10*3/uL (0.0-0.2); Basophils Percent Auto 1.2 % (0-2); Eosinophils Absolute Auto 0.3 X10*3/uL (0.0-0.4); Eosinophils Percent Auto 5.2 % (0-4); Hematocrit 37.9 % (42.0-52.0); Imm Gran Abs Auto 0.01 X10*3/uL (0.00-0.03); Imm Gran Pct Auto 0.2 % (0.0-0.4); Lymphocytes Absolute Auto 1.2 X10*3/uL (1.2-4.9); Lymphocytes Percent Auto 23.7 % (20-40); Mean Corpuscular HGB Conc 34.3 g/dl (31.0-36.0); Mean Corpuscular Hemoglobin 32.4 pg (27.0-33.0); Mean Corpuscular Volume 94.5 fL (80.0-98.0); Mean Platelet Volume 9.5 fL (9.4-12.4); Monocytes Absolute Auto 0.6 X10*3/uL (0.1-1.2); Monocytes Percent Auto 11.8 % (2-11); Neutrophils Percent Auto 57.9 % (45-73); Platelet Count 205 X10*3/uL (160-400); Red Blood Count 4.01 X10*6/uL (4.60-5.80); Red Cell Distribution Width 12.6 % (11.0-16.0); White Blood Count 5.2 X10*3/uL (4.8-10.8)
[2024-02-13 08:32] LABS: Appearance Urine Clear; Color Urine Dark Yellow; Glucose Urine UA Negative (Negative); Leukocyte Esterase Urine Negative (Negative); Nitrite Urine Negative (Negative); PH 5.5 (5.0-9.0); Specific Gravity - Urine 1.025 (1.005-1.025); Urine Blood Negative (Negative); Urine Ketones Negative (Negative); Urine Protein Trace mg/dL (Neg-Trace)
[2024-02-13 08:57] LABS: Alanine Aminotransferase 19 U/L (0-40); Albumin Level 3.9 g/dL (3.5-5.0); Alkaline Phosphatase 92 U/L (39-117); Anion Gap 12 (12-20); Aspartate Amino Transferase 29 U/L (5-37); Bilirubin Total 0.8 mg/dL (0.0-1.0); Blood Urea Nitrogen 20 mg/dL (9-16); Calcium 9.1 mg/dL (8.4-10.2); Carbon Dioxide 25 mmol/L (22-29); Chloride 105 mmol/L (96-108); Cholesterol 145 mg/dL (<200); Estimated Glomerular Filt Rate > 60; Glucose Fasting 106 mg/dL (60-99); HDL Cholesterol 59 mg/dL (>40); LDL Cholesterol Calculated 78 mg/dL (<100); Potassium 4.2 mmol/L (3.3-5.1); Sodium 138 mmol/L (135-145); Total Protein 7.5 g/dL (6.5-8.0); Triglycerides 43 mg/dL (<150)
[2024-02-13 09:17] LABS: TSH reflex Free T4 2.75 uIU/mL (0.32-4.0)
== END 2024-02-13 07:46 | disposition home or self-care (01) ==
LOC: HO.LAB 07:45
PROVIDERS: PCP Internal Medicine; Visit Provider Internal Medicine
DX: D64.9 Anemia, unspecified (principal); E78.00 Pure hypercholesterolemia, unspecified; E55.9 Vitamin D deficiency, unspecified; R30.0 Dysuria
CPT/HCPCS: 36415; 80053; 80061; 81003; 82306; 84443; 85025

== ENCOUNTER 2024-02-20 09:49 | Outpatient (AMB) | payer MEDICARE, SELFPAY ==
--- NOTE | 2024-02-20 09:50 | MHC.PC.OV ---
Vital Signs 02/20/24 09:51 Height 6 ft Weight 217 lb BMI 29.4 BP 128/62 Blood Pressure Location Lt brachial Position Sitting Pulse 52 Pulse Source Pulse Oximeter Pulse Oximetry (%) 97 Oxygen Delivery Method Room Air Intake Visit Reasons: 4 months f/u Financial Reporting Analyst Required: No Allergies No Known Allergies Allergy (Verified 02/20/24 10:32) Medication List - Last Reconciled 02/20/24 by Mando Vergara MD aspirin (Enteric Coated Aspirin) 81 mg PO DAILY atorvastatin 80 mg PO QPM losartan-hydrochlorothiazide 50-12.5 mg 1 tab PO DAILY 90 days metoprolol succinate ER 25 mg PO DAILY Tobacco use date assessed: 10/19/23 Fall risk assessment: No Falls in past year Last assessed Fall Risk: 02/20/24 Dental Screening Dental Screen Date: 10/19/23 HPI 4 months f/u HPI Details Patient comes in today for his follow up visit States that he feels okay He denies any headaches or dizziness Denies any chest pains, no SOB No nausea/vomiting, no abdominal pain No change in bowel habits noted Had his follow up labs done last week - to discuss his results [facility] Medical History Overweight (BMI 25.0-29.9) Impaired fasting glucose Obesity (BMI 30-39.9) GERD (gastroesophageal reflux disease) Pure hypercholesterolemia Benign essential hypertension Surgical History History of cardiac catheterization (~08/28/21) History of cataract extraction with lens replacement (~02/2018) History of squamous cell carcinoma excision (~06/2017) History of excision of lesion (~01/2014) History of squamous cell carcinoma excision (~07/2019) History of bilateral cataract extraction History of colonoscopy History of vasectomy (~1969) Family History Father CVD (cardiovascular disease) Mother No problems noted. Brother Colon cancer Social History Housing: House Alcohol intake: current Alcohol intake frequency: holidays/special occasions only Patient Tobacco Use Status: Former Tobacco user e-Cigarette/Vaping Use: Never Used Second Hand Smoke Exposure: Yes service: Yes Current occupational status: retired Cognitive needs: No Hearing needs: No Vision needs: Yes Questionnaire Thrive Questionnaire Date Thrive assessed: 10/19/23 AUDIT C Alcohol Use Questionnaire (AUDIT-C) 1. How often do you have a drink containing alcohol?: Never 3. How often do you have six or more drinks on one occasion?: Never Total Score: 0 Score Reviewed/Action Taken: Yes GONZALEZ-7 AMB Questionnaire GONZALEZ-7 Date GONZALEZ - 7 assessed: 10/19/23 Source: Developed by Drs. Reese Santos, Fabiola Staley, Bhavin Webb and colleagues, with an educational valeriano from [employer]. Review of Systems Const Denies chills, Denies fatigue, Denies fever(s) and Denies headache(s) ENT Denies dysphagia, Denies dizziness, Denies otalgia, Denies headache(s), Denies neck pain, Denies odynophagia and Denies sore throat Card Denies chest pain, Denies palpitations and Denies dyspnea Resp Denies cough, Denies dyspnea and Denies wheezing GI Denies abdominal pain, Denies constipation, Denies dysphagia, Denies heartburn, Denies diarrhea, Denies nausea, Denies odynophagia and Denies vomiting Denies dysuria, Denies nocturia and Denies urinary frequency Musc Reports back pain (on and off ), Reports arthralgias (on and off in both hands/fingers), Denies neck pain and Reports stiffness (of the fingers on both hands, on and off) Skin/Breast Denies rash Neuro Denies dizziness and Denies headache(s) Endo Denies fatigue and Denies palpitations Aller/Immun Denies wheezing Physical exam (Primary Care) Vital Signs: Last Vital Signs Pulse 52 02/20/24 09:51 BP 128/62 02/20/24 09:51 Pulse Ox 97 02/20/24 09:51 Oxygen Delivery Method Room Air 02/20/24 09:51 BMI result Body Mass Index 29.4 Tobacco/Smoking Status: Tobacco use Status Tobacco use date assessed 10/19/23 02/20/24 09:51 Patient Tobacco Use Status Former Tobacco user 02/20/24 09:51 Tobacco use type 11/08/22 09:23 e-Cigarette/Vaping Use Never Used 02/20/24 09:51 Thrive Assessment: Date of Thrive Assessment Date Thrive assessed 10/19/23 02/20/24 09:51 Const General: no acute distress and alert HENMT Ears: TM's normal bilaterally and EAC's normal Throat: Yes posterior oropharynx normal and Yes tonsils normal Neck Neck: Yes no lymphadenopathy and Yes supple Thyroid: Thyroid normal Resp Auscultation: clear to auscultation bilaterally, no rales and no wheezes Cardio Rate: regular rate Rhythm: regular rhythm Heart sounds: no murmurs GI Palpation (GI): Soft to palpation and nontender Auscultation: normal bowel sounds General: Yes no CVA tenderness Back/Spine/Pelvis Back: no CVA tenderness Thoracic/Lumbar Spine: paraspinal muscle tenderness (mild) bilaterally and lumbar spinal tenderness (mild) Skin Rashes: no rashes Extrem General: Yes no clubbing, cyanosis or edema Results Reviewed Results Reviewed: Laboratory Tests 02/13/24 08:00 WBC 5.2 Hgb 13.0 L Hct 37.9 L Plt Count 205 Sodium 138 Potassium 4.2 Creatinine 0.92 Estimated GFR > 60 Fasting Glucose 106 H Calcium 9.1 AST 29 ALT 19 Triglycerides 43 Cholesterol 145 LDL Cholesterol, Calc 78 HDL Cholesterol 59 25-OH Vitamin D Total 51.0 TSH 2.75 Ur Specific [place] 1.025 Urine Protein Trace Urine Glucose (UA) Negative Urine Blood Negative Urine Nitrite Negative Ur Leukocyte Esterase Negative Assessment and Plan Assessment & Plan (1) Atherosclerotic cardiovascular disease: Comment: S/P cardiac cath and stenting of LAD on 08/28/2021 Code(s): I25.10 - Atherosclerotic heart disease of [place] coronary artery without angina pectoris Plan: S/P cardiac cath and stenting of LAD on 08/28/2021 - symptoms and activity tolerance have improved with cardiac rehab Continue Aspirin 81 mg QD and Metoprolol ER 25 mg QD; Brilinta was discontinued by cardiology after 1 year Follow up with cardiology as scheduled (2) Pure hypercholesterolemia: Code(s): E78.00 - Pure hypercholesterolemia, unspecified Plan: Results of his labs done last week reviewed and discussed with patient Reinforced low cholesterol diet Continue Simvastatin 20 mg QD Will recheck his labs and fasting lipids in 4 months for follow up (3) Benign essential hypertension: Code(s): I10 - Essential (primary) hypertension Plan: Reinforced low sodium diet - goal is systolic BP of at least 140 to 150 mm or less Continue Losartan-HCT 50-12.5 mg QD; is also on Metoprolol ER 25 mg QD (4) Impaired fasting glucose: Code(s): R73.01 - Impaired fasting glucose Plan: His in-office HgbA1c was normal at 5.6% when last checked a few months ago Reinforced low calorie/low carb diet; exercise as tolerated (5) YUE (obstructive sleep apnea): Comment: Moderately severe, the AHI 19/hr and oxygen luz was 83%. Code(s): G47.33 - Obstructive sleep apnea (adult) (pediatric) Plan: Is currently on AutoPaP 6 to 16 cm H20; states that he has been doing well on his CPAP device Follow up with Sleep Medicine as scheduled (6) GERD (gastroesophageal reflux disease): Code(s): K21.9 - Gastro-esophageal reflux disease without esophagitis Qualifiers: Esophagitis presence: without esophagitis Qualified Code(s): K21.9 - Gastro-esophageal reflux disease without esophagitis Plan: Dietary restrictions reinforced Continue Omeprazole 20 mg QD (7) Low back pain: Code(s): M54.50 - Low back pain, unspecified Qualifiers: Chronicity: unspecified Back pain laterality: bilateral Sciatica presence: without sciatica Qualified Code(s): M54.50 - Low back pain, unspecified Plan: Reinforced activity and weight-lifting restrictions Would again recommend lumbar spine x-rays for further evaluation if his low back pain persists or progresses (8) Joint pain in fingers of both hands: Code(s): M25.541 - Pain in joints of right hand; M25.542 - Pain in joints of left hand Plan: Have advised patient again that these are likely due to OA changes of both hands/fingers Have recommended that he does some hand and finger exercises regularly to help manage his symptoms May take OTC Tylenol PRN for pain and advised to let us know if his hand symptoms get worse (9) Overweight (BMI 25.0-29.9): Code(s): E66.3 - Overweight Plan: Reinforced diet/exercise as tolerated/lose weight Plan Follow up in 4 months Orders: Orders Complete Blood Count Auto Diff 4 Months D64.9 - Anemia, unspecified Comprehensive [place]. Panel Fast 4 Months E78.00 - Pure hypercholesterolemia, unspecified TSH reflex Free T4 4 Months E78.00 - Pure hypercholesterolemia, unspecified UA CC w/rflx Micro + Cult 4 Months R30.0 - Dysuria Vitamin D 25-OH Total 4 Months E55.9 - Vitamin D deficiency, unspecified Lipid Panel 4 Months E78.00 - Pure hypercholesterolemia, unspecified Hemoglobin A1c 4 Months R73.01 - Impaired fasting glucose Coding Level of Care Code Est Pt Level 4 (98996) Complex EM visit Add On G2211 Diagnoses Atherosclerotic cardiovascular disease I25.10 Pure hypercholesterolemia E78.00 Benign essential hypertension I10 Impaired fasting glucose R73.01 YUE (obstructive sleep apnea) G47.33 Gastroesophageal reflux disease without esophagitis K21.9 Esophagitis presence: without esophagitis Bilateral low back pain without sciatica, unspecified chronicity M54.50 Chronicity: unspecified Back pain laterality: bilateral Sciatica presence: without sciatica Joint pain in fingers of both hands M25.541; M25.542 Overweight (BMI 25.0-29.9) E66.3
[2024-02-20 09:51] VITALS: BP 128/62; PULSE 52; O2SAT 97; BMI 29.4
== END 2024-02-20 10:38 | disposition home or self-care (01) ==
PROVIDERS: PCP Internal Medicine; Visit Provider Internal Medicine
DX: I25.10 Atherosclerotic heart disease of native coronary artery without angina pectoris (principal); E78.00 Pure hypercholesterolemia, unspecified; I10 Essential (primary) hypertension; R73.01 Impaired fasting glucose; G47.33 Obstructive sleep apnea (adult) (pediatric); K21.9 Gastro-esophageal reflux disease without esophagitis; M54.50 Low back pain, unspecified; M25.541 Pain in joints of right hand; M25.542 Pain in joints of left hand; E66.3 Overweight
CPT/HCPCS: 99214; G2211

== ENCOUNTER 2024-06-04 13:40 | Outpatient (AMB) | payer MEDICARE, SELFPAY ==
--- NOTE | 2024-06-04 13:48 | MHC.OFFVIS ---
Vital Signs 06/04/24 13:49 Height 6 ft Weight 217 lb BMI 29.4 Intake Visit Reasons: 1YR F/U follow up YUE Intake Note: Patient presents for YUE Allergies No Known Allergies Allergy (Verified 06/04/24 13:50) HPI Comments Details: 84 year old male presents for f/u of Sleep Apnea. He really likes his mask, and is compliant with his CPAP. He Denies, SOB, gasping for air, choking or swallowing difficulties. His mask leaks, is very loud and wakes up his at night. His bedtime is 10pm, gets up at 6am, has trouble staying asleep, because of the air leaking. Feels sluggish and tired in the morning. Denies Memory difficulty. Denies difficulty with vision, headaches, nausea, vomiting. Drives during the day, not at night. Would like to take something to stay asleep. Will send him for a Mask fitting [facility]. CPAP >4 hours for 90 days Average hours usage 7 hours 56 minutes [employer] Min pressure 6cmH20 to [id number] Pressure at Therapy Median 10.7 to Max 15.3 Leaks Median 11.7 to Max 71.7 AHI 5.5 [facility] [id number] [facility] Medical History Overweight (BMI 25.0-29.9) Impaired fasting glucose Obesity (BMI 30-39.9) GERD (gastroesophageal reflux disease) Pure hypercholesterolemia Benign essential hypertension Surgical History History of cardiac catheterization (~08/28/21) History of cataract extraction with lens replacement (~02/2018) History of squamous cell carcinoma excision (~06/2017) History of excision of lesion (~01/2014) History of squamous cell carcinoma excision (~07/2019) History of bilateral cataract extraction History of colonoscopy History of vasectomy (~1969) Family History Father CVD (cardiovascular disease) Mother No problems noted. Brother Colon cancer Social History Housing: House Alcohol intake: current Alcohol intake frequency: holidays/special occasions only Patient Tobacco Use Status: Former Tobacco user e-Cigarette/Vaping Use: Never Used Second Hand Smoke Exposure: Yes service: Yes Current occupational status: retired Cognitive needs: No Hearing needs: No Vision needs: Yes Review of Systems Const All systems reviewed & are unremarkable except as noted in HPI and below Physical Exam Vital Signs: BMI result Body Mass Index 29.4 Const General: cooperative, comfortable and no acute distress Nutritional Appearance: average body habitus Orientation/consciousness: patient oriented x3 Limitations: no limitations HEENT Face and sinus: Yes face symmetric Eyes Pupils: Equal, round and reactive pupils present, Pupils normal by confrontation and Pupil accommodation reflex normal Neck Neck: Yes full ROM and Yes supple Resp Effort & Inspection: normal respiratory effort and able to speak in complete sentences Neuro General: patient oriented x3 Cranial nerves: Yes CN's II-XII intact bilaterally, Yes Facial sensation intact/muscles of mastication intact, Yes Equal, round and reactive pupils present, Yes Normal facial strength present, Yes Midline tongue present and Yes Ability to bilaterally elevate shoulders present Cognition (Neuro): normal cognition Gait exam (Neuro): Normal gait present Motor exam (neuro): 5/5 motor strength present throughout Deep tendon reflexes (DTR's): Right triceps reflex intensity grade: 2+, Left triceps reflex intensity grade: 2+, Rt Biceps (C5, C6): 2+, Left biceps reflex intensity grade: 2+, Right brachioradialis reflex intensity grade: 2+, Left brachioradialis reflex intensity grade: 2+, Right patellar reflex intensity grade: 2+, Left patellar reflex intensity grade: 2+, Right ankle reflex intensity grade: 2+ and Left ankle reflex intensity grade: 2+ Coordination: [id number] test normal Assessment & Plan Assessment & Plan (1) Sleep disorder: Code(s): G47.9 - Sleep disorder, unspecified Category: Medical Plan: Patient continues to have good clinical effects with use of his cPAP. The mask is leaking, will send him for a mask fitting. Patient education of good sleep hygiene and using Melatonin 5mg PRN if still having trouble staying asleep. Coding Level of Care Code Est Pt Level 4 (71653) Diagnoses Sleep disorder G47.9
[2024-06-04 13:49] VITALS: BMI 29.4
== END 2024-06-04 14:34 | disposition home or self-care (01) ==
PROVIDERS: Absent Provider Psychiatry & Neurology Neurology; PCP Internal Medicine; Visit Provider Physician Assistant Medical
DX: G47.9 Sleep disorder, unspecified (principal)
CPT/HCPCS: 99212

== ENCOUNTER → 2024-06-04 13:40 | Outpatient (BNVA) | payer MEDICARE, SELFPAY | PROVIDERS: Absent Provider Psychiatry & Neurology Neurology; PCP Internal Medicine; Visit Provider Physician Assistant Medical | DX: G47.33 Obstructive sleep apnea (adult) (pediatric) (principal); Z99.89 Dependence on other enabling machines and devices | CPT/HCPCS: 99212 ==

== ENCOUNTER 2024-06-18 07:27 | Outpatient (REF) | payer MEDICARE, SELFPAY ==
[2024-06-18 07:44] LABS: MANUAL DIFF FLAG NO
[2024-06-18 08:05] LABS: Basophils Absolute Auto 0.1 X10*3/uL (0.0-0.2); Basophils Percent Auto 1.5 % (0-2); Eosinophils Absolute Auto 0.3 X10*3/uL (0.0-0.4); Eosinophils Percent Auto 4.8 % (0-4); Hematocrit 38.1 % (42.0-52.0); Hemoglobin 13.1 g/dl (14.0-18.0); Imm Gran Abs Auto 0.01 X10*3/uL (0.00-0.03); Imm Gran Pct Auto 0.2 % (0.0-0.4); Lymphocytes Absolute Auto 1.4 X10*3/uL (1.2-4.9); Lymphocytes Percent Auto 22.7 % (20-40); Mean Corpuscular HGB Conc 34.4 g/dl (31.0-36.0); Mean Corpuscular Hemoglobin 32.2 pg (27.0-33.0); Mean Corpuscular Volume 93.6 fL (80.0-98.0); Mean Platelet Volume 9.6 fL (9.4-12.4); Monocytes Absolute Auto 0.6 X10*3/uL (0.1-1.2); Monocytes Percent Auto 10.7 % (2-11); Neutrophils Absolute Auto 3.6 x10*3/uL (2.0-8.3); Neutrophils Percent Auto 60.1 % (45-73); Platelet Count 233 X10*3/uL (160-400); Red Blood Count 4.07 X10*6/uL (4.60-5.80); Red Cell Distribution Width 12.5 % (11.0-16.0)
[2024-06-18 08:06] LABS: Appearance Urine Clear; Color Urine Dark Yellow; Glucose Urine UA Negative (Negative); Leukocyte Esterase Urine Negative (Negative); Nitrite Urine Negative (Negative); PH 5.5 (5.0-9.0); Specific Gravity - Urine 1.025 (1.005-1.025); UMIC TRIGGER UACC YES; Urine Blood Negative (Negative); Urine Ketones Trace mg/dL (Negative); Urine Protein 30 (1+) mg/dL (Neg-Trace)
[2024-06-18 08:09] LABS: Bacteria Urine None Seen (None Seen); Hyaline Casts Urine 0-2 /LPF (0-2); RBC Urine 0-2 /HPF (0-2); Squamous Epithelial Cell Urine 0-2 /HPF (0-2); WBC Urine 0-5 /HPF (0-5)
[2024-06-18 08:16] LABS: Estimated Average Glucose 111 mg/dL; Hemoglobin A1C 123.5613 umol/L; Hemoglobin A1c % 5.5 % (<6.0); Total Hemoglobin (HGBA1C) 3328.5483 umol/L
[2024-06-18 08:42] LABS: Alanine Aminotransferase 30 U/L (0-40); Albumin Level 3.9 g/dL (3.5-5.0); Alkaline Phosphatase 104 U/L (39-117); Anion Gap 10 (12-20); Aspartate Amino Transferase 36 U/L (5-37); Bilirubin Total 0.9 mg/dL (0.0-1.0); Blood Urea Nitrogen 17 mg/dL (9-16); Carbon Dioxide 28 mmol/L (22-29); Chloride 103 mmol/L (96-108); Cholesterol 141 mg/dL (<200); Estimated Glomerular Filt Rate > 60; Glucose Fasting 117 mg/dL (60-99); HDL Cholesterol 56 mg/dL (>40); LDL Cholesterol Calculated 74 mg/dL (<100); Potassium 4.3 mmol/L (3.3-5.1); Sodium 137 mmol/L (135-145); Total Protein 7.5 g/dL (6.5-8.0); Triglycerides 55 mg/dL (<150)
[2024-06-18 08:57] LABS: TSH reflex Free T4 2.67 uIU/mL (0.32-4.0); Vitamin D 25-OH Total 44.9 ng/mL (>30)
== END 2024-06-18 07:28 | disposition home or self-care (01) ==
LOC: HO.LAB 07:27
PROVIDERS: PCP Internal Medicine; Visit Provider Internal Medicine
DX: D64.9 Anemia, unspecified (principal); E78.00 Pure hypercholesterolemia, unspecified; R73.01 Impaired fasting glucose; E55.9 Vitamin D deficiency, unspecified
CPT/HCPCS: 36415; 80053; 80061; 81001; 82306; 83036; 84443; 85025

== ENCOUNTER 2024-06-27 10:28 | Outpatient (AMB) | payer MEDICARE, SELFPAY ==
[2024-06-27 10:34] VITALS: BP 136/80; PULSE 54; O2SAT 98; BMI 29.9
--- NOTE | 2024-06-27 10:34 | MHC.PC.OV ---
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 Accompanied by: Self / Same As Patient Allergies No Known Allergies Allergy (Verified 06/27/24 10:59) Medication List - Last Reconciled 06/27/24 by Mando Vergara MD aspirin (Enteric Coated Aspirin) 81 mg PO DAILY atorvastatin 80 mg PO QPM losartan-hydrochlorothiazide 50-12.5 mg 1 tab PO DAILY 90 days metoprolol succinate ER 25 mg PO DAILY Tobacco use date assessed: 06/27/24 Fall risk assessment: No Falls in past year Last assessed Fall Risk: 06/27/24 Dental Screening Dental Screen Date: 06/27/24 Did you have a dental visit in the last 12 months?: Yes Did you have a dental problem in the last 6 months where you did not have access to dental care?: No Was dental information given to patient?: Patient has dentist HPI 4 Month F/U HPI Details Patient comes in today for his follow up visit States that he currently feels okay Had a bout of sciatica over his right lower back a few weeks ago but states that his right low back pain has since subsided He was also recently experiencing some issues with trigger finger on his left hand but states that this has gradually gotten better and he does not need anything else at this time He recently had a cold a couple of weeks ago, with some cough, congestion and mild sore throat but states that his symptoms have also been gradually clearing up and are now almost gone He denies any fever; denies any headaches or dizziness Denies any chest pains, no SOB No nausea/vomiting, no abdominal pain No change in bowel habits noted Needs a few of his Rx refilled today He had his follow up labs done last week - to discuss his results [facility]LY [facility], [facility] Medical History Overweight (BMI 25.0-29.9) Impaired fasting glucose Obesity (BMI 30-39.9) GERD (gastroesophageal reflux disease) Pure hypercholesterolemia Benign essential hypertension Surgical History History of cardiac catheterization (~08/28/21) History of cataract extraction with lens replacement (~02/2018) History of squamous cell carcinoma excision (~06/2017) History of excision of lesion (~01/2014) History of squamous cell carcinoma excision (~07/2019) History of bilateral cataract extraction History of colonoscopy History of vasectomy (~1970) Family History Father CVD (cardiovascular disease) Mother No problems noted. Brother Colon cancer Social History Housing: House Alcohol intake: current Alcohol intake frequency: holidays/special occasions only Patient Tobacco Use Status: Former Tobacco user e-Cigarette/Vaping Use: Never Used Second Hand Smoke Exposure: Yes service: Yes Current occupational status: retired Cognitive needs: No Hearing needs: No Vision needs: Yes Questionnaire PHQ-9 Over the last 2 weeks, how often have you been bothered by any of the following problems? 1. Little interest or pleasure in doing things: not at all 2. Feeling down, depressed, or hopeless: not at all 3. Trouble falling or staying asleep, or sleeping too much: not at all 4. Feeling tired or having little energy: not at all 5. Poor appetite or overeating: not at all 6. Feeling bad about yourself - or that you are a failure or have let yourself or your family down: not at all 7. Trouble concentrating on things, such as reading the newspaper or watching television: not at all 8. Moving or speaking so slowly that other people could have noticed. Or the opposite - being so fidgety or restless that you have been moving around a lot more than usual: not at all 9. Thoughts that you would be better off or of hurting yourself in some way: not at all Total score: 0 Depression Screening Interpretation: Negative Depression Screening Done: Yes 54330 - PHQ-9 Billing: Yes Source: Developed by Drs. Reese Santos, Fabiola Staley, Bhavin Webb and colleagues, with an educational valeriano from [employer]. Thrive Questionnaire Date Thrive assessed: 06/27/24 I am a: Patient What is your living situation today?: I have a steady place to live Within the past 12 months, did the food you bought not last and you didn't have the money to get more?: Never true Within the past 12 months, did you worry whether your food would run out before you got money to buy more?: Never true Do you have trouble paying for medicines?: No Do you have trouble getting transportation to medical appointments?: No Do you have trouble paying your heating and electricity bill?: No Do you have trouble taking care of your child, family member or friend?: No Do you have trouble with day-to-day activities such as bathing, preparing meals, shopping, managing finances, etc.?: No Are you currently unemployed and looking for a job?: No Are you interested in more education?: No Please select the resources that you would like help with: None Currently or been in a relationship where the following occur: No concerns reported THRIVE Score: 0 AUDIT C Alcohol Use Questionnaire (AUDIT-C) 2. How many drinks containing alcohol do you have on a typical day when you are drinking?: 1 or 2 3. How often do you have six or more drinks on one occasion?: Never Total Score: 0 Score Reviewed/Action Taken: Yes GONZALEZ-7 AMB Questionnaire GONZALEZ-7 Date GONZALEZ - 7 assessed: 06/27/24 Feeling nervous, anxious, or on edge: 0 = Not at all Not being able to stop or control worryin = Not at all Worrying too much about different things: 0 = Not at all Trouble relaxin = Not at all Being so restless that it is hard to sit still: 0 = Not at all Becoming easily annoyed or irritable: 0 = Not at all Feeling afraid as if something awful might happen: 0 = Not at all Total GONZALEZ-7 score (0-4 normal; 5-9 mild; 10-14 moderate; 15-21 severe): 0 Source: Developed by Drs. Reese Santos, Fabiola Staley, Bhavin Webb and colleagues, with an educational valeriano from [employer]. Review of Systems Const Denies chills, Denies fatigue, Denies fever(s) and Denies headache(s) ENT Denies dysphagia, Denies dizziness, Denies otalgia, Denies headache(s), Reports nasal congestion (mild - resolving), Denies neck pain, Denies odynophagia and Denies sore throat Card Denies chest pain, Denies palpitations and Denies dyspnea Resp Denies chest congestion (improved/resolved recently), Denies cough, Denies dyspnea and Denies wheezing GI Denies abdominal pain, Denies constipation, Denies dysphagia, Denies heartburn, Denies diarrhea, Denies nausea, Denies odynophagia and Denies vomiting Denies dysuria, Denies nocturia and Denies urinary frequency Musc Reports back pain (on and off ), Reports arthralgias (on and off in both hands/fingers), Denies neck pain and Reports stiffness (of the fingers on both hands, on and off) Skin/Breast Denies rash Neuro Denies dizziness and Denies headache(s) Endo Denies fatigue and Denies palpitations Aller/Immun Denies wheezing Physical exam (Primary Care) Vital Signs: Last Vital Signs Pulse 54 06/27/24 10:34 BP 136/80 06/27/24 10:34 Pulse Ox 98 06/27/24 10:34 Oxygen Delivery Method Room Air 06/27/24 10:34 BMI result Body Mass Index 29.9 Tobacco/Smoking Status: Tobacco use Status Tobacco use date assessed 06/27/24 06/27/24 10:39 Patient Tobacco Use Status Former Tobacco user 06/27/24 10:39 Tobacco use type 11/08/22 09:23 e-Cigarette/Vaping Use Never Used 06/27/24 10:39 PHQ-9: PHQ-9 Score PHQ-9: Total score 0 06/27/24 10:39 Depression Screening Interpretation: Negative Thrive Assessment: Date of Thrive Assessment Date Thrive assessed 06/27/24 06/27/24 10:39 Currently or been in a relationship where the following occur: No concerns reported Const General: no acute distress and alert HENMT Ears: TM's normal bilaterally and EAC's normal Throat: Yes posterior oropharynx normal and Yes tonsils normal Neck Neck: Yes no lymphadenopathy and Yes supple Thyroid: Thyroid normal Resp Auscultation: clear to auscultation bilaterally, no rales and no wheezes Cardio Rate: regular rate Rhythm: regular rhythm Heart sounds: no murmurs GI Palpation (GI): Soft to palpation and nontender Auscultation: normal bowel sounds General: Yes no CVA tenderness Back/Spine/Pelvis Back: no CVA tenderness Thoracic/Lumbar Spine: paraspinal muscle tenderness (mild) bilaterally and lumbar spinal tenderness (mild) Skin Rashes: no rashes Extrem General: Yes no clubbing, cyanosis or edema Results Reviewed Results Reviewed: Laboratory Tests 06/18/24 06/18/24 07:33 07:43 WBC 6.0 Hgb 13.1 L Hct 38.1 L Plt Count 233 Sodium 137 Potassium 4.3 Creatinine 0.97 Estimated GFR > 60 Fasting Glucose 117 H Hemoglobin A1c % 5.5 Calcium 9.0 AST 36 ALT 30 Triglycerides 55 Cholesterol 141 LDL Cholesterol, Calc 74 HDL Cholesterol 56 25-OH Vitamin D Total 44.9 TSH 2.67 Ur Specific [place] 1.025 Urine Protein 30 (1+) H Urine Glucose (UA) Negative Urine Blood Negative Urine Nitrite Negative Ur Leukocyte Esterase Negative Coding Level of Care Code Est Pt Level 4 (94030) Diagnoses Atherosclerotic cardiovascular disease I25.10 Pure hypercholesterolemia E78.00 Benign essential hypertension I10 Impaired fasting glucose R73.01 YUE (obstructive sleep apnea) G47.33 Gastroesophageal reflux disease without esophagitis K21.9 Esophagitis presence: without esophagitis Bilateral low back pain without sciatica, unspecified chronicity M54.50 Chronicity: unspecified Back pain laterality: bilateral Sciatica presence: without sciatica Joint pain in fingers of both hands M25.541; M25.542 Overweight (BMI 25.0-29.9) E66.3 Additional Codes PHQ-9 - 60448 - PHQ-9 Billing: Yes ([id number]) Assessment & Plan Assessment & Plan (1) Atherosclerotic cardiovascular disease: Comment: S/P cardiac cath and stenting of LAD on 08/28/2021 Code(s): I25.10 - Atherosclerotic heart disease of [place] coronary artery without angina pectoris Category: Medical Plan: S/P cardiac cath and stenting of LAD on 08/28/2021 - his symptoms and activity tolerance have all improved significantly with cardiac rehab Continue Aspirin 81 mg QD and Metoprolol ER 25 mg QD; Brilinta was discontinued by cardiology after 1 year post-PCI Follow up with cardiology as scheduled (2) Pure hypercholesterolemia: Code(s): E78.00 - Pure hypercholesterolemia, unspecified Category: Medical Plan: Results of his labs done last week reviewed and discussed with patient Reinforced low cholesterol diet Continue Simvastatin 20 mg QD Will recheck his labs and fasting lipids in 4 months for follow up (3) Benign essential hypertension: Code(s): I10 - Essential (primary) hypertension Category: Medical Plan: Reinforced low sodium diet - goal is systolic BP of at least 140 to 150 mm or less Continue Losartan-HCT 50-12.5 mg QD; is also on Metoprolol ER 25 mg QD (4) Impaired fasting glucose: Code(s): R73.01 - Impaired fasting glucose Category: Medical Plan: His HgbA1c was normal at 5.5% on his labs done last week; in-office HgbA1c was normal at 5.6% when previously checked a few months ago Reinforced low calorie/low carb diet; exercise as tolerated (5) YUE (obstructive sleep apnea): Comment: Moderately severe, the AHI 19/hr and oxygen luz was 83%. Code(s): G47.33 - Obstructive sleep apnea (adult) (pediatric) Category: Medical Plan: He is currently still on AutoPaP 6 to 16 cm H20 - states that he is doing well on his CPAP device and he uses it every night when he is sleeping Follow up with Sleep Medicine as scheduled (6) GERD (gastroesophageal reflux disease): Code(s): K21.9 - Gastro-esophageal reflux disease without esophagitis Category: Medical Qualifiers: Esophagitis presence: without esophagitis Qualified Code(s): K21.9 - Gastro-esophageal reflux disease without esophagitis Plan: Dietary restrictions reinforced Continue Omeprazole 20 mg QD (7) Low back pain: Code(s): M54.50 - Low back pain, unspecified Category: Medical Qualifiers: Chronicity: unspecified Back pain laterality: bilateral Sciatica presence: without sciatica Qualified Code(s): M54.50 - Low back pain, unspecified Plan: He recently reportedly had a bout of sciatica on his right lower back - states that his symptoms have since subsided Reinforced activity and weight-lifting restrictions Would again recommend lumbar spine x-rays for further evaluation if his low back pain persists or progresses (8) Joint pain in fingers of both hands: Code(s): M25.541 - Pain in joints of right hand; M25.542 - Pain in joints of left hand Category: Medical Plan: Have advised patient again that these are likely due to OA changes of both hands/fingers Have recommended that he does some hand and finger exercises regularly to help manage his symptoms He relates experiencing some issues with trigger finger a couple of weeks ago but states that these are now subsiding and he does not need anything else at this time Reminded patient that he can take OTC Tylenol PRN for pain and advised to let us know if his hand symptoms get worse (9) Overweight (BMI 25.0-29.9): Code(s): E66.3 - Overweight Category: Medical Plan: Reinforced diet/exercise as tolerated/lose weight Plan Follow up in 4 months Orders: Orders Comprehensive [place]. Panel Fast 4 Months E78.00 - Pure hypercholesterolemia, unspecified Lipid Panel 4 Months E78.00 - Pure hypercholesterolemia, unspecified TSH reflex Free T4 4 Months E78.00 - Pure hypercholesterolemia, unspecified Hemoglobin A1c 4 Months R73.01 - Impaired fasting glucose Complete Blood Count Auto Diff 4 Months D64.9 - Anemia, unspecified UA CC w/rflx Micro + Cult 4 Months R30.0 - Dysuria Vitamin D 25-OH Total 4 Months E55.9 - Vitamin D deficiency, unspecified Medications: Refilled metoprolol succinate ER 25 mg PO DAILY 90 tabs 3RF I25.10 - Atherosclerotic heart disease of [place] coronary artery without angina pectoris atorvastatin 80 mg PO QPM 90 tabs 3RF losartan-hydrochlorothiazide 50-12.5 mg 1 tab PO DAILY 90 days 90 tabs 3RF I10 - Essential (primary) hypertension
== END 2024-06-27 11:13 | disposition home or self-care (01) ==
PROVIDERS: PCP Internal Medicine; Visit Provider Internal Medicine
DX: I25.10 Atherosclerotic heart disease of native coronary artery without angina pectoris (principal); E78.00 Pure hypercholesterolemia, unspecified; I10 Essential (primary) hypertension; R73.01 Impaired fasting glucose; G47.33 Obstructive sleep apnea (adult) (pediatric); K21.9 Gastro-esophageal reflux disease without esophagitis; M54.50 Low back pain, unspecified; M25.541 Pain in joints of right hand; M25.542 Pain in joints of left hand; E66.3 Overweight

== ENCOUNTER → 2024-06-27 10:28 | Outpatient (BNVA) | payer MEDICARE, SELFPAY | PROVIDERS: PCP Internal Medicine; Visit Provider Internal Medicine | DX: I25.10 Atherosclerotic heart disease of native coronary artery without angina pectoris (principal); E78.00 Pure hypercholesterolemia, unspecified; I10 Essential (primary) hypertension; G47.33 Obstructive sleep apnea (adult) (pediatric); K21.9 Gastro-esophageal reflux disease without esophagitis; M54.50 Low back pain, unspecified; M25.541 Pain in joints of right hand; M25.542 Pain in joints of left hand; E66.3 Overweight | CPT/HCPCS: 96127; 99212 ==

== ENCOUNTER 2024-09-05 08:51 | Outpatient (AMB) | payer MEDICARE, SELFPAY ==
[2024-09-05 08:54] VITALS: BP 128/56; PULSE 47; BMI 30.1
--- NOTE | 2024-09-05 08:54 | MHC.OFFVIS ---
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 Due to symptoms of shortness of breath, he underwent further workup that led to cardiac catheterization and LAD stenting. Overall, he states he feels fine. No angina. Sometimes he gets tired but apart from that feels good. No limitations in activity. FORMERLY [facility], [facility] Medical History Overweight (BMI 25.0-29.9) Impaired fasting glucose Obesity (BMI 30-39.9) GERD (gastroesophageal reflux disease) Pure hypercholesterolemia Benign essential hypertension Surgical History History of cardiac catheterization (~08/28/21) History of cataract extraction with lens replacement (~02/2018) History of squamous cell carcinoma excision (~06/2017) History of excision of lesion (~01/2014) History of squamous cell carcinoma excision (~07/2019) History of bilateral cataract extraction History of colonoscopy History of vasectomy (~1969) Family History Father CVD (cardiovascular disease) Mother No problems noted. Brother Colon cancer Social History Housing: House Alcohol intake: current Alcohol intake frequency: holidays/special occasions only Patient Tobacco Use Status: Former Tobacco user e-Cigarette/Vaping Use: Never Used Second Hand Smoke Exposure: Yes service: Yes Current occupational status: retired Cognitive needs: No Hearing needs: No Vision needs: Yes Review of Systems Const Denies chills, Denies fatigue, Denies fever(s), Denies weight gain and Denies weight loss ENT Denies dizziness Card Denies chest pain, Denies leg edema, Denies lightheadedness, Denies palpitations, Denies dyspnea on exertion, Denies orthopnea and Denies other Resp Denies cough and Denies dyspnea on exertion GI Denies hematochezia and Denies change in stool character Musc Denies abnormal gait, Denies muscle weakness, Denies numbness, Denies radiating pain into limb and Denies tingling Neuro Denies abnormal gait, Denies dizziness, Denies numbness and Denies tingling Endo Denies fatigue and Denies palpitations Physical Exam Vital Signs: Last Vital Signs Pulse 47 L 09/05/24 08:54 BP 128/56 L 09/05/24 08:54 BMI result Body Mass Index 30.1 Const General: comfortable and no acute distress Orientation/consciousness: patient oriented x3 HEENT Other: Unremarkable Head: Yes normal to inspection Neck Neck: Yes normal visual inspection Chest Chest palpation & inspection: normal inspection of the chest Resp Auscultation: clear to auscultation bilaterally Cardio Palpation: normal PMI Heart sounds: S1 normal heart sound present, S2 normal heart sound present, no gallops, no murmurs and no rubs GI Palpation (GI): Soft to palpation Back/Spine/Pelvis Other: unremarkable Skin General skin exam: no rashes or lesions noted Neuro General: patient oriented x3 Extrem General: Yes normal to inspection Psych Mental Status: mental status grossly normal Office Procedures EKG Details: EKG with sinus bradycardia at 47/Min; leftward axis; cannot exclude old septal infarct; [place] [id number], Complete Assessment & Plan Assessment & Plan (1) Atherosclerotic cardiovascular disease: Comment: S/P cardiac cath and stenting of LAD on 08/28/2021 Code(s): I25.10 - Atherosclerotic heart disease of [place] coronary artery without angina pectoris Category: Medical Plan: Cardiac catheterization 2021 showed LAD as well as RCA disease. Status post LAD stenting. RCA is for medical management. Continue aspirin and statins. As he is complaining of tiredness and also has bradycardia, advised to hold off on beta-blockers for few weeks and see if it helps. If feels better, then discontinue. (2) Essential hypertension: Code(s): I10 - Essential (primary) hypertension Category: Medical Plan: On losartan/HCTZ. (3) Atrial arrhythmia: Code(s): I49.8 - Other specified cardiac arrhythmias Category: Medical Plan: Holter in the past with sinus rhythm with frequent PACs, short runs and occasional ventricular ectopy. No specific implications at this time. Plan for beta-blockers as above. (4) YUE (obstructive sleep apnea): Comment: Moderately severe, the AHI 19/hr and oxygen luz was 83%. Code(s): G47.33 - Obstructive sleep apnea (adult) (pediatric) Category: Medical Plan: Continue CPAP. Coding Level of Care Code Est Pt Level 4 (57025) Diagnoses Atherosclerotic cardiovascular disease I25.10 Essential hypertension I10 Atrial arrhythmia I49.8 YUE (obstructive sleep apnea) G47.33 CPT Codes EKG - CPT: 97999-[id number], Complete ([id number])
--- OUTSIDE RECORDS SUMMARY | 2024-09-05 09:44 | XMS_ITS | Patient Health Record ---
Author Organization [facility] Address [address] [place] [address] Care Team Providers Care Timing Adjuster Name Role Phone Jai NIELSON, [place] Primary Care Provider Reese Canales Unavailable [phone] ALLERGIES No Known Allergies REASON FOR REFERRAL No Information MEDICATIONS Medication SIG (Take, Route, Frequency, Duration) Notes Start Date End Date Status Brilinta 90 MG Oral for 90 Act juana Aspirin Low Dose 81 MG TAKE 1 TABLET BY MOUTH EVERY DAY Oral for 90 Active Losartan Potassium-HCTZ 50-12.5 MG Oral for 90 Active Atorvastatin Calcium 40 MG Oral for 90 Active Metoprolol Succinate ER 25 MG Oral for 90 Active Famotidine 20 MG Oral for 90 N ot-Taking Pantoprazole Sodium 40 MG Oral for 90 Not-Taking IMMUNIZATIONS Vaccine Route Administration Date Status Comme nts Influenza Unknown 06/16/2021 Administered SOCIAL HISTORY Sex Assigned At : Social History Observation Description Sex Assigned At Unknown PROBLEMS Problem Type ICD Code Onset Dates Problem Status W/U Status Risk SNOMED Code Notes Problem Gastroesophageal reflux disease, esophagitis presence not specified (K21.9) Active confirmed 410505991 Problem Belching (R14.2) Active confirmed 97115 4000 Problem Encounter for screening for malignant neoplasm of colon (Z12.11) Active confirmed 378914661 Problem Encounter for screening for malignant neoplasm of rectum (Z12.12) Active confirmed Screening for malignant neoplasm of rectum (624946137) Problem Family history of colon cancer (Z80.0) Active confirmed 387087066 Problem Gastroesophageal reflux disease without esophagitis (K21.9) Active confirmed 089351805 Problem Change in bowel habits (R19.4) Active confirmed Change in bowel habit (96037238) PLAN OF TREATMENT Future Test Test Name Order Date UPPER GI ENDOSCOPY 10/22/2016 COLONOSCOPY 10/22/2016 Insurance Providers Payer Name Payer Address Payer Phone Subscriber Number Group Number Insured Name Patient Relationship to Insured Coverage Start Date Coverage End Date [facility] [address] [place], [place] [id number] [id number] Self - patient is the insured MEDICAL (GENERAL) HISTORY Medical History History ICD Code Negative colonoscopies in , 2004, and 2009 except for hyperplastic polyps Denies ME,DM,CVA,Lung disease,renal dise ase HTN Hyperlipidemia CAD with 2 stents placed in Aug 2021-sees Dr. Logan--he did not have a [place] Negative colonoscopy in December of 2016 GERD-EGD in December of 2016--mi nimal hiatal hernia, no esophagitis or Jaimes's esophagus, mild gastritis with H. pylori which was treated with a PPI and antibiotics. His reflux symptoms resolved after placement of his 2 coronary artery stents in 2021. Negative abdominal ultrasoun d in June of 2021 except for some gallbladder sludge--- there were no gallstones nor biliary disease Surgical History Surgery Date(Month/Year) Basal cell and squamous cell skin cancer s
== END 2024-09-05 09:28 | disposition home or self-care (01) ==
PROVIDERS: PCP Internal Medicine; Visit Provider Internal Medicine
DX: I25.10 Atherosclerotic heart disease of native coronary artery without angina pectoris (principal); I10 Essential (primary) hypertension; I49.8 Other specified cardiac arrhythmias; G47.33 Obstructive sleep apnea (adult) (pediatric)
CPT/HCPCS: 93010; 99214

== ENCOUNTER → 2024-09-05 08:51 | Outpatient (BNVA) | payer MEDICARE, SELFPAY | PROVIDERS: PCP Internal Medicine; Visit Provider Internal Medicine | DX: I25.10 Atherosclerotic heart disease of native coronary artery without angina pectoris (principal); I10 Essential (primary) hypertension; I49.8 Other specified cardiac arrhythmias; G47.33 Obstructive sleep apnea (adult) (pediatric); R00.1 Bradycardia, unspecified; R94.31 Abnormal electrocardiogram [ECG] [EKG] | CPT/HCPCS: 93005; 99212 ==

== ENCOUNTER 2024-10-22 07:31 | Outpatient (REF) | payer MEDICARE, SELFPAY ==
[2024-10-22 11:02] LABS: MANUAL DIFF FLAG NO
[2024-10-22 11:18] LABS: Basophils Absolute Auto 0.1 X10*3/uL (0.0-0.2); Basophils Percent Auto 1.3 % (0-2); Eosinophils Absolute Auto 0.3 X10*3/uL (0.0-0.4); Hematocrit 39.9 % (42.0-52.0); Hemoglobin 13.5 g/dl (14.0-18.0); Imm Gran Abs Auto 0.01 X10*3/uL (0.00-0.03); Imm Gran Pct Auto 0.2 % (0.0-0.4); Lymphocytes Absolute Auto 1.2 X10*3/uL (1.2-4.9); Lymphocytes Percent Auto 22.5 % (20-40); Mean Corpuscular HGB Conc 33.8 g/dl (31.0-36.0); Mean Corpuscular Hemoglobin 31.8 pg (27.0-33.0); Mean Corpuscular Volume 94.1 fL (80.0-98.0); Mean Platelet Volume 9.7 fL (9.4-12.4); Monocytes Absolute Auto 0.5 X10*3/uL (0.1-1.2); Monocytes Percent Auto 9.9 % (2-11); Neutrophils Absolute Auto 3.3 x10*3/uL (2.0-8.3); Neutrophils Percent Auto 60.1 % (45-73); Platelet Count 250 X10*3/uL (160-400); Red Blood Count 4.24 X10*6/uL (4.60-5.80); Red Cell Distribution Width 12.6 % (11.0-16.0); White Blood Count 5.5 X10*3/uL (4.8-10.8)
[2024-10-22 11:29] LABS: Appearance Urine Clear; Color Urine Yellow; Glucose Urine UA Negative (Negative); Leukocyte Esterase Urine Negative (Negative); Nitrite Urine Negative (Negative); Urine Blood Negative (Negative); Urine Ketones Negative (Negative); Urine Protein Negative (Neg-Trace)
[2024-10-22 11:50] LABS: Alanine Aminotransferase 29 U/L (0-40); Albumin Level 3.9 g/dL (3.5-5.0); Alkaline Phosphatase 100 U/L (39-117); Anion Gap 11 (12-20); Aspartate Amino Transferase 35 U/L (5-37); Blood Urea Nitrogen 17 mg/dL (9-16); Calcium 9.2 mg/dL (8.4-10.2); Carbon Dioxide 29 mmol/L (22-29); Chloride 105 mmol/L (96-108); Cholesterol 148 mg/dL (<200); Estimated Glomerular Filt Rate > 60; Glucose Fasting 110 mg/dL (60-99); HDL Cholesterol 59 mg/dL (>40); LDL Cholesterol Calculated 79 mg/dL (<100); Potassium 4.5 mmol/L (3.3-5.1); Sodium 140 mmol/L (135-145); TSH reflex Free T4 2.34 uIU/mL (0.32-4.0); Total Protein 7.5 g/dL (6.5-8.0); Triglycerides 53 mg/dL (<150); Vitamin D 25-OH Total 42.2 ng/mL (>30)
[2024-10-22 11:59] LABS: Estimated Average Glucose 114 mg/dL; Hemoglobin A1c % 5.6 % (<6.0)
== END 2024-10-22 07:32 | disposition home or self-care (01) ==
LOC: HO.10HDL 07:31
PROVIDERS: Visit Provider Internal Medicine
DX: D64.9 Anemia, unspecified (principal); E78.00 Pure hypercholesterolemia, unspecified; E55.9 Vitamin D deficiency, unspecified; R30.0 Dysuria; R73.01 Impaired fasting glucose
CPT/HCPCS: 36415; 80053; 80061; 81003; 82306; 83036; 84443; 85025

== ENCOUNTER 2024-10-30 10:34 | Outpatient (AMB) | payer MEDICARE, SELFPAY ==
[2024-10-30 10:45] VITALS: BP 126/84; PULSE 71; O2SAT 97
--- NOTE | 2024-10-30 10:45 | A.OFFPC_ITS ---
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: No Accompanied by: Self / Same As Patient Allergies No Known Allergies Allergy (Verified 10/30/24 11:20) Medication List - Last Reconciled 10/30/24 by Mando Vergara MD aspirin (Enteric Coated Aspirin) 81 mg PO DAILY atorvastatin 80 mg PO QPM losartan-hydrochlorothiazide 50-12.5 mg 1 tab PO DAILY 90 days Tobacco use date assessed: 10/30/24 Fall risk assessment: No Falls in past year Last assessed Fall Risk: 10/30/24 Dental Screening Dental Screen Date: 10/30/24 Did you have a dental visit in the last 12 months?: Yes Did you have a dental problem in the last 6 months where you did not have access to dental care?: No Was dental information given to patient?: Patient has dentist HPI [facility] f/u HPI Details Patient comes in today for his follow up visit for CAD, HTN and hyperlipidemia States that he feels okay States that he was doing well until last night when he somehow sprained his right knee while going up the steps on his patio He has been experiencing increased right knee pain since and has noticed some swelling of his knee this morning He currently has a knee brace on, which he states help somewhat He denies any headaches or dizziness Denies any chest pains, no SOB No nausea/vomiting, no abdominal pain No change in bowel habits noted He had his follow up labs done last week - to discuss his results [facility] Medical History Overweight (BMI 25.0-29.9) Impaired fasting glucose Obesity (BMI 30-39.9) GERD (gastroesophageal reflux disease) Pure hypercholesterolemia Benign essential hypertension Surgical History History of cardiac catheterization (~08/28/21) History of cataract extraction with lens replacement (~02/2018) History of squamous cell carcinoma excision (~06/2017) History of excision of lesion (~01/2014) History of squamous cell carcinoma excision (~07/2019) History of bilateral cataract extraction History of colonoscopy History of vasectomy (~1970) Family History Father CVD (cardiovascular disease) Mother No problems noted. Brother Colon cancer Social History Housing: House Alcohol intake: current Alcohol intake frequency: holidays/special occasions only Patient Tobacco Use Status: Former Tobacco user e-Cigarette/Vaping Use: Never Used Second Hand Smoke Exposure: Yes service: Yes Current occupational status: retired Cognitive needs: No Hearing needs: No Vision needs: Yes Questionnaire PHQ-9 Over the last 2 weeks, how often have you been bothered by any of the following problems? 1. Little interest or pleasure in doing things: not at all 2. Feeling down, depressed, or hopeless: not at all 3. Trouble falling or staying asleep, or sleeping too much: not at all 4. Feeling tired or having little energy: not at all 5. Poor appetite or overeating: not at all 6. Feeling bad about yourself - or that you are a failure or have let yourself or your family down: not at all 7. Trouble concentrating on things, such as reading the newspaper or watching television: not at all 8. Moving or speaking so slowly that other people could have noticed. Or the opposite - being so fidgety or restless that you have been moving around a lot more than usual: not at all 9. Thoughts that you would be better off or of hurting yourself in some way: not at all Total score: 0 Depression Screening Interpretation: Negative Depression Screening Done: Yes 23206 - PHQ-9 Billing: Yes Source: Developed by Drs. Reese Santos, Fabiola Staley, Bhavin Webb and colleagues, with an educational valeriano from judo. Thrive Questionnaire Date Thrive assessed: 10/30/24 I am a: Patient What is your living situation today?: I have a steady place to live Within the past 12 months, did the food you bought not last and you didn't have the money to get more?: Never true Within the past 12 months, did you worry whether your food would run out before you got money to buy more?: Never true Do you have trouble paying for medicines?: No Do you have trouble getting transportation to medical appointments?: No Do you have trouble paying your heating and electricity bill?: No Do you have trouble taking care of your child, family member or friend?: No Do you have trouble with day-to-day activities such as bathing, preparing meals, shopping, managing finances, etc.?: No Are you currently unemployed and looking for a job?: No Are you interested in more education?: No Please select the resources that you would like help with: None Currently or been in a relationship where the following occur: No concerns reported THRIVE Score: 0 AUDIT C Alcohol Use Questionnaire (AUDIT-C) 1. How often do you have a drink containing alcohol?: Monthly or less 2. How many drinks containing alcohol do you have on a typical day when you are drinking?: 1 or 2 3. How often do you have six or more drinks on one occasion?: Never Total Score: 1 Score Reviewed/Action Taken: Yes GONZALEZ-7 AMB Questionnaire GONZALEZ-7 Date GONZALEZ - 7 assessed: 10/30/24 Feeling nervous, anxious, or on edge: 0 = Not at all Not being able to stop or control worryin = Not at all Worrying too much about different things: 0 = Not at all Trouble relaxin = Not at all Being so restless that it is hard to sit still: 0 = Not at all Becoming easily annoyed or irritable: 0 = Not at all Feeling afraid as if something awful might happen: 0 = Not at all Total GONZALEZ-7 score (0-4 normal; 5-9 mild; 10-14 moderate; 15-21 severe): 0 Source: Developed by Drs. Reese Santos, Fabiola Staley, Bhavin Webb and colleagues, with an educational valeriano from judo. Review of Systems Const Denies chills, Denies fatigue, Denies fever(s) and Denies headache(s) ENT Denies dysphagia, Denies dizziness, Denies otalgia, Denies headache(s), Denies neck pain, Denies odynophagia and Denies sore throat Card Denies chest pain, Denies palpitations and Denies dyspnea Resp Denies chest congestion, Denies cough and Denies dyspnea GI Denies abdominal pain, Denies constipation, Denies dysphagia, Denies heartburn, Denies diarrhea, Denies nausea, Denies odynophagia and Denies vomiting Denies difficulty urinating, Denies dysuria, Denies nocturia and Denies urinary frequency Musc Reports back pain (on and off ), Reports arthralgias (on and off in both hands/fingers; increased pain in the right knee -see HPI), Denies neck pain and Reports stiffness (of the fingers on both hands, on and off) Skin/Breast Denies rash Neuro Denies dizziness and Denies headache(s) Endo Denies fatigue and Denies palpitations Physical exam (Primary Care) Vital Signs: Last Vital Signs Pulse 71 10/30/24 10:45 BP 126/84 10/30/24 10:45 Pulse Ox 97 10/30/24 10:45 Oxygen Delivery Method Room Air 10/30/24 10:45 BMI result Body Mass Index 30.0 Tobacco/Smoking Status: Tobacco use Status Tobacco use date assessed 10/30/24 10/30/24 10:50 Patient Tobacco Use Status Former Tobacco user 10/30/24 10:50 Tobacco use type 11/08/22 09:23 e-Cigarette/Vaping Use Never Used 10/30/24 10:50 PHQ-9: PHQ-9 Score PHQ-9: Total score 0 10/30/24 10:50 Depression Screening Interpretation: Negative Thrive Assessment: Date of Thrive Assessment Date Thrive assessed 10/30/24 10/30/24 10:50 Currently or been in a relationship where the following occur: No concerns reported Const General: no acute distress and alert HENMT Ears: TM's normal bilaterally and EAC's normal Throat: Yes posterior oropharynx normal and Yes tonsils normal Neck Neck: Yes supple and No lymphadenopathy Thyroid: Thyroid normal Resp Auscultation: clear to auscultation bilaterally, no rales and no wheezes Cardio Rate: regular rate Rhythm: regular rhythm Heart sounds: no murmurs GI Palpation (GI): Soft to palpation and nontender Auscultation: normal bowel sounds General: Yes no CVA tenderness Back/Spine/Pelvis Back: no CVA tenderness Thoracic/Lumbar Spine: lumbar spinal tenderness (mild) Skin Rashes: no rashes Extrem General: Yes no clubbing, cyanosis or edema Right lower extremity: knee (currently has a brace on the right knee) Details: tenderness Location: of the medial joint line, of the lateral joint line and of the pre-patellar area; no swelling Results Reviewed Results Reviewed: Laboratory Tests 10/22/24 07:38 WBC 5.5 Hgb 13.5 L Hct 39.9 L Plt Count 250 Sodium 140 Potassium 4.5 Creatinine 0.86 Estimated GFR > 60 Fasting Glucose 110 H Hemoglobin A1c % 5.6 Calcium 9.2 AST 35 ALT 29 Triglycerides 53 Cholesterol 148 LDL Cholesterol, Calc 79 HDL Cholesterol 59 25-OH Vitamin D Total 42.2 TSH 2.34 Ur Specific [place] 1.020 Urine Protein Negative Urine Glucose (UA) Negative Urine Blood Negative Urine Nitrite Negative Ur Leukocyte Esterase Negative Coding Level of Care Code Est Pt Level 4 (20783) Diagnoses Atherosclerotic cardiovascular disease I25.10 Pure hypercholesterolemia E78.00 Benign essential hypertension I10 Impaired fasting glucose R73.01 YUE (obstructive sleep apnea) G47.33 Gastroesophageal reflux disease without esophagitis K21.9 Esophagitis presence: without esophagitis Sprain of right knee, unspecified ligament, initial encounter S83.91XA Encounter type: initial encounter Involved ligament of knee: unspecified ligament Bilateral low back pain without sciatica, unspecified chronicity M54.50 Chronicity: unspecified Back pain laterality: bilateral Sciatica presence: without sciatica Joint pain in fingers of both hands M25.541; M25.542 Overweight (BMI 25.0-29.9) E66.3 Additional Codes PHQ-9 - 52105 - PHQ-9 Billing: Yes ([id number]) Assessment & Plan Assessment & Plan (1) Atherosclerotic cardiovascular disease: Comment: S/P cardiac cath and stenting of LAD on 08/28/2021 Code(s): I25.10 - Atherosclerotic heart disease of [place] coronary artery without angina pectoris Category: Medical Plan: S/P cardiac cath and stenting of LAD on 08/28/2021 - his symptoms and activity tolerance have all improved significantly with cardiac rehab Continue Aspirin 81 mg QD; Brilinta was discontinued by cardiology after 1 year post-PCI He was also on Metoprolol ER 25 mg QD but this was discontinued by cardiology a couple of months ago due to bradycardia and complaints of fatigue on the patient's part - patient states that he feels much better since he came off his Metoprolol ER Follow up with cardiology as scheduled (2) Pure hypercholesterolemia: Code(s): E78.00 - Pure hypercholesterolemia, unspecified Category: Medical Plan: Results of his labs done last week reviewed and discussed with patient Reinforced low cholesterol diet Continue Simvastatin 20 mg QD Will recheck his labs and fasting lipids in 4 months for follow up (3) Benign essential hypertension: Code(s): I10 - Essential (primary) hypertension Category: Medical Plan: Reinforced low sodium diet - goal is systolic BP of at least 140 to 150 mm or less Continue Losartan-HCT 50-12.5 mg QD (4) Impaired fasting glucose: Code(s): R73.01 - Impaired fasting glucose Category: Medical Plan: His FBS was at 110 mg/dl but his HgbA1c was normal at 5.6% on his labs done last week Reinforced low calorie/low carb diet; exercise as tolerated (5) YUE (obstructive sleep apnea): Comment: Moderately severe, the AHI 19/hr and oxygen luz was 83%. Code(s): G47.33 - Obstructive sleep apnea (adult) (pediatric) Category: Medical Plan: He is currently still on AutoPaP 6 to 16 cm H20 - states that he is doing well on his CPAP device and he uses it every night when he is sleeping Follow up with Sleep Medicine as scheduled (6) GERD (gastroesophageal reflux disease): Code(s): K21.9 - Gastro-esophageal reflux disease without esophagitis Category: Medical Qualifiers: Esophagitis presence: without esophagitis Qualified Code(s): K21.9 - Gastro-esophageal reflux disease without esophagitis Plan: Dietary restrictions reinforced Continue Omeprazole 20 mg QD (7) Sprain of right knee: Code(s): S83.91XA - Sprain of unspecified site of right knee, initial encounter Category: Medical Qualifiers: Encounter type: initial encounter Involved ligament of knee: unspecified ligament Qualified Code(s): S83.91XA - Sprain of unspecified site of right knee, initial encounter Plan: Patient reportedly sprained his right knee while going up some steps on his patio last night He currently has a brace on his knee, which he states help somewhat X-rays of the knee done a couple of years ago (2022) revealed (+) posterior superior and inferior small patellar spurs and large anterior superior patellar enthesophytes, with mild joint effusion at the time. The tricompartment joint space is normal Have advised patient to give his knee some time to recover and if his knee symptoms are not any better in a week, then he is to call us back and we will then at least consider referring him for physical therapy evaluation and management (8) Low back pain: Code(s): M54.50 - Low back pain, unspecified Category: Medical Qualifiers: Chronicity: unspecified Back pain laterality: bilateral Sciatica presence: without sciatica Qualified Code(s): M54.50 - Low back pain, unspecified Plan: Patient states that he has not had any problems with his lower back lately He last had a bout of sciatica on his right lower back several months ago but states that his symptoms have since subsided Reinforced activity and weight-lifting restrictions Would again recommend lumbar spine x-rays for further evaluation if his low back pain keeps recurring (9) Joint pain in fingers of both hands: Code(s): M25.541 - Pain in joints of right hand; M25.542 - Pain in joints of left hand Category: Medical Plan: Have advised patient previously that these are likely due to OA changes of both hands/fingers Have recommended that he do some hand and finger exercises regularly to help manage his symptoms Patient reports experiencing some issues with trigger finger previously but states that these are now subsiding and he does not need anything else at this time Reminded patient that he can take OTC Tylenol PRN for pain and advised to let us know if his hand symptoms get worse (10) Overweight (BMI 25.0-29.9): Code(s): E66.3 - Overweight Category: Medical Plan: Reinforced diet/exercise as tolerated/lose weight Plan Follow up in 4 months Orders: Orders Complete Blood Count Auto Diff 4 Months D64.9 - Anemia, unspecified Comprehensive [place]. Panel Fast 4 Months E78.00 - Pure hypercholesterolemia, unspecified Lipid Panel 4 Months E78.00 - Pure hypercholesterolemia, unspecified TSH reflex Free T4 4 Months E78.00 - Pure hypercholesterolemia, unspecified UA CC w/rflx Micro + Cult 4 Months R30.0 - Dysuria Vitamin D 25-OH Total 4 Months E55.9 - Vitamin D deficiency, unspecified
--- OUTSIDE RECORDS SUMMARY | 2024-10-30 12:37 | XMS_ITS | Patient Health Record ---
Author Organization [facility] Address [address] [place] [address] Care Team Providers Care Real Estate Sales Supervisor Name Role Phone Jai NIELSON, [place] Primary Care Provider Reese Canales Unavailable [phone] Allergies No Known Allergies Reason For Referral No Information Medications Medication SIG (Take, Route, Frequency, Duration) Notes [...] Sodium 40 MG Oral for 90 Not-Taking Immunizations Vaccine Route Administration Date Status Comme nts Influenza Unknown 06/16/2021 Administered Problems Problem Type SNOMED Code ICD Code Onset Dates Problem Status W/U Status Risk Notes Problem 095297653 Encounter for screening for malignant neoplasm of colon (Z12.11) Active confirmed Problem Change in bowel habit (32159913) Change in bowel habits (R19.4) Active confirmed Problem Screening for malignant neoplasm of rectum (588497512) Encounter for screening for malignant neoplasm of rectum (Z12.12) Active confirmed Problem 072553427 Gastroesophageal reflux disease without esophagitis (K21.9) Active confirmed Problem 022790591 Gastroesophageal reflux disease, esophagitis presence not specified (K21.9) Active confirmed Problem 990780014 Family history o f colon cancer (Z80.0) Active confirmed Problem 905383911 Belching (R14.2) Active confirmed Plan Of Treatment Future Test Test Name Order Date UPPER GI ENDOSCOPY 10/22/2016 COLONOSCOPY 10/22/2016 Insurance Providers Payer Name Payer Address Payer Phone Subscriber Number Group Number Insured Name Patient Relationship to Insured Coverage Start Date Coverage End Date [facility] [address] [place], [place] [id number] JULIETA BALL Self - patient is the insured Medical (General) History Medical History History ICD Code Negative colonoscopies in , 2004, and 2009 except for hyperplastic polyps Denies [place],DM,CVA,Lung disease,renal dise ase HTN Hyperlipidemia CAD with 2 stents placed in Aug 2021-sees Dr. Logan--he did not have a [place] Negative colonoscopy in December of 2016 GERD-EGD [...]
== END 2024-10-30 11:36 | disposition home or self-care (01) ==
LOC: HO.HMCH 10:34
PROVIDERS: PCP Internal Medicine; Visit Provider Internal Medicine
DX: I25.10 Atherosclerotic heart disease of native coronary artery without angina pectoris (principal); E78.00 Pure hypercholesterolemia, unspecified; I10 Essential (primary) hypertension; R73.01 Impaired fasting glucose; G47.33 Obstructive sleep apnea (adult) (pediatric); K21.9 Gastro-esophageal reflux disease without esophagitis; S83.91XA Sprain of unspecified site of right knee, initial encounter; M54.50 Low back pain, unspecified; M25.541 Pain in joints of right hand; M25.542 Pain in joints of left hand; E66.3 Overweight

== ENCOUNTER → 2024-10-30 10:34 | Outpatient (BNVA) | payer MEDICARE, SELFPAY | PROVIDERS: PCP Internal Medicine; Visit Provider Internal Medicine | DX: I25.10 Atherosclerotic heart disease of native coronary artery without angina pectoris (principal); I10 Essential (primary) hypertension; E78.00 Pure hypercholesterolemia, unspecified; R73.01 Impaired fasting glucose; G47.33 Obstructive sleep apnea (adult) (pediatric); K21.9 Gastro-esophageal reflux disease without esophagitis; M54.50 Low back pain, unspecified; M25.541 Pain in joints of right hand; M25.542 Pain in joints of left hand; E66.3 Overweight; S83.91XA Sprain of unspecified site of right knee, initial encounter; X58.XXXA Exposure to other specified factors, initial encounter; Y93.9 Activity, unspecified; Y92.9 Unspecified place or not applicable; Y99.9 Unspecified external cause status; Z68.30 Body mass index [BMI] 30.0-30.9, adult | CPT/HCPCS: 96127; 99212 ==

== ENCOUNTER 2025-03-04 07:34 | Outpatient (REF) | payer MEDICARE, SELFPAY ==
--- OUTSIDE RECORDS SUMMARY | 2025-03-04 07:36 | XMS_ITS | Patient Health Record ---
[facility] Address [address] [place] [address] Care Team Providers Care Skid Man Name Role Phone John Vergara MDneth Primary Care Provider Beni Amaro Unavailable [phone] Reason For Referral No Information Medications Medication SIG (Take, Route, Fr equency, Duration) Notes Start Date End Date Status Diovan HCT 80-12.5 MG 1 tablet Orally On ce a day; Duration: 30 day(s) Active Simvastatin 20 MG 1 tablet every eveni ng Orally Once a day; Duration: 30 day(s) Active Problems Problem Type SNOMED Code ICD Code Onset Dates Problem Status W/U Status Risk Notes Problem Bursitis (47145441) Bursitis (727.3) Active confirmed Problem 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, Congenital (754.61) Active confirmed Problem Myositis (52816236) Myositis (729.1) Active confirmed Problem Pain in limb (04663743) Pain in Limb (729.5) Active confirmed Problem Plantar fasciitis (000011139) Plantar Fasciitis (728.71) Active confirmed Problem Calcaneal spur (04087744) Calcaneal spur (726.73) Active confirmed Plan Of Treatment No Information Insurance Providers Payer Name Payer Address Payer Phone Subscriber Number Group Number Insured Name Patient Relationship to Insured Coverage Start Date Coverage End Date [facility] 67 Medicare Preferred [address] [place] [address] [phone] [id number] Luis Miguel Bass Self - patient is the insured Medical (General) History Medical History History ICD Code hypertension measles chicken pox
--- OUTSIDE RECORDS SUMMARY | 2025-03-04 07:36 | XMS_ITS | Patient Health Record ---
Author Organization [facility] Address [address] [place] [address] Care Team Providers Care Wool Hanker Name Role Phone Jai NIELSON, [place] Primary Care Provider Reese Canales Unavailable [phone] Allergies No Known Allergies Reason For Referral [...] Problem Status W/U Status Risk Notes Problem 492988092 Encounter for screening for malignant neoplasm of colon (Z12.11) Active confirmed Problem Change in bowel habit (60640319) Change in bowel habits (R19.4) Active confirmed Problem Screening for malignant neoplasm of rectum (224867514) Encounter for screening for malignant neoplasm of rectum (Z12.12) Active confirmed Problem 568660762 Gastroesophageal reflux disease without esophagitis (K21.9) Active confirmed Problem 050303111 Gastroesophageal reflux disease, esophagitis presence not specified (K21.9) Active confirmed Problem 075552821 Family history o f colon cancer (Z80.0) Active confirmed Problem 589517556 Belching (R14.2) Active confirmed Plan Of Treatment Future Test Test Name Order Date UPPER GI ENDOSCOPY 10/22/2016 COLONOSCOPY 10/22/2016 Insurance Providers Payer Name Payer Address Payer Phone Subscriber Number Group Number Insured Name Patient Relationship to Insured Coverage Start Date Coverage End Date [facility] [address] [place], [place] [id number] JULIETA BALL Self - patient is the insured Medical (General) History Medical History History ICD Code Negative colonoscopies in , 2004, and 2009 except for hyperplastic polyps Denies [place],DM,CVA,Lung disease,renal dise ase HTN Hyperlipidemia CAD with 2 stents placed in Aug 2021-sees Dr. Logan--he did not have a [place] Negative colonoscopy in December of 2016 GERD-EGD [...]
[2025-03-04 10:08] LABS: MANUAL DIFF FLAG NO
[2025-03-04 10:17] LABS: Hematocrit 37.9 % (42.0-52.0); Hemoglobin 13.0 g/dl (14.0-18.0); Imm Gran Abs Auto 0.01 X10*3/uL (0.00-0.03); Imm Gran Pct Auto 0.2 % (0.0-0.4); Lymphocytes Absolute Auto 1.3 X10*3/uL (1.2-4.9); Mean Corpuscular HGB Conc 34.3 g/dl (31.0-36.0); Mean Corpuscular Hemoglobin 32.4 pg (27.0-33.0); Mean Corpuscular Volume 94.5 fL (80.0-98.0); NRBC Abs Auto 0.000 X10*3/uL (0.0-0.012); NRBC Pct Auto 0.0 /100WBC (0.0-0.2); Platelet Count 243 X10*3/uL (160-400); Red Blood Count 4.01 X10*6/uL (4.60-5.80); White Blood Count 4.9 X10*3/uL (4.8-10.8)
[2025-03-04 10:25] LABS: Appearance Urine Clear; Glucose Urine UA Negative (Negative); PH 5.5 (5.0-9.0); Specific Gravity - Urine 1.025 (1.005-1.025)
[2025-03-04 10:43] LABS: Alanine Aminotransferase 26 U/L (0-40); Albumin Level 4.2 g/dL (3.5-5.0); Alkaline Phosphatase 102 U/L (39-117); Anion Gap 10 (12-20); Aspartate Amino Transferase 33 U/L (5-37); Blood Urea Nitrogen 23 mg/dL (9-16); Calcium 9.2 mg/dL (8.4-10.2); Carbon Dioxide 29 mmol/L (22-29); Chloride 105 mmol/L (96-108); Cholesterol 142 mg/dL (<200); Estimated Glomerular Filt Rate > 60; HDL Cholesterol 59 mg/dL (>40); Potassium 4.2 mmol/L (3.3-5.1); Sodium 140 mmol/L (135-145); Total Protein 7.6 g/dL (6.5-8.0); Triglycerides 47 mg/dL (<150)
== END 2025-03-04 07:35 | disposition home or self-care (01) ==
LOC: HO.10HDL 07:34
PROVIDERS: Visit Provider Internal Medicine
DX: R30.0 Dysuria (principal); E55.9 Vitamin D deficiency, unspecified; E78.00 Pure hypercholesterolemia, unspecified; D64.9 Anemia, unspecified
CPT/HCPCS: 36415; 80053; 80061; 81003; 82306; 84443; 85025

== ENCOUNTER 2025-03-05 13:50 | Outpatient (REF) | payer MEDICARE, SELFPAY ==
--- NOTE | ~2025-03-05 | XR_ITS ---
EXAMINATION: XR SHOULDER 2 OR MORE VIEWS LEFT HISTORY: M25.512 - Pain in left shoulder COMPARISON: There are no prior studies available for comparison. FINDINGS: Three views of the left shoulder are submitted. Osseous mineralization is normal. There is no fracture or dislocation. The glenohumeral joint is maintained. There is mild to moderate osteoarthritis of the AC joint with joint space narrowing and osteophyte formation. The soft tissues are unremarkable. 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 Electronically signed by: Reese Brambila MD 03/05/2025 03:07 PM EDT
== END 2025-03-05 13:51 | disposition home or self-care (01) ==
LOC: HO.HMGCX 13:50
PROVIDERS: PCP Internal Medicine; Visit Provider Physician Assistant
DX: S43.402A Unspecified sprain of left shoulder joint, initial encounter (principal); M25.512 Pain in left shoulder; V80.010A Animal-rider injured by fall from or being thrown from horse in noncollision accident, initial encounter
CPT/HCPCS: 73030; 99212

== ENCOUNTER 2025-03-05 13:50 | Outpatient (AMB) | payer MEDICARE, SELFPAY ==
--- NOTE | 2025-03-05 13:56 | AM.OFFWIN_ITS ---
Intake Vital Signs 03/05/25 13:57 Height 6 ft Weight 213 lb BMI 28.9 BP 130/56 L Blood Pressure Location Rt brachial Position Sitting Pulse 91 Pulse Source Pulse Oximeter Temp 98.0 F Temp Source Oral Pulse Oximetry (%) 96 Oxygen Delivery Method Room Air Intake Visit Reasons: EP-lt shoulder pain from a fall Intake Note: presents with left shoulder pain after falling earlier today Patient Tobacco Use Status: Former Tobacco user Allergies No Known Allergies Allergy (Verified 03/05/25 13:57) Do you need a note to return to daycare/school/sports/work: No HPI HPI Comments History of Present Illness Details History of Present Illness - The patient is an 84-year-old male pre senting with a shoulder injury due to a fall. - The injury occurred approximately two hours prior to the visit when the patient tripped over a hose and landed on his left side on the grass. - The patient reports pain on movement o f the left shoulder, particularly when lifting the arm or performing overhead activities. - The patient has not taken any analgesi cs but has applied ice to the affected area. 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 Physical Exam General: Cooperative, healthy appearing, comfortable, no acute distress and well developed Orientation: Patient oriented x3 Limitations: Pain with movement of the left shoulder Head: Normal to inspection Ears: Hearing grossly normal bilaterally Nose: Normal External nose present Face and sinus: Normal facial exam Eyes: Appearance normal, both eyes and all related structures Neck: Normal visual inspection and Yes full ROM Respiratory: Normal respiratory effort and able to speak in complete sentences. Skin: No rashes or lesions noted Neuro: Patient oriented x3 Back/spine: no TTP cervical spine into left trapezius Extremities: Left shoulder posterior appears uneven and different due to previous nerve injury on the right side. Full ROM with discomfort, negative empty can, no skin changes. some TTP distal trapezius but no TTP AC joint, lateral shoulder, anterior shoulder, posterior shoulder or bicipital groove. COUNT INCLUDES THE [facility] Medical History Overweight (BMI 25.0-29.9) Impaired fasting glucose Obesity (BMI 30-39.9) GERD (gastroesophageal reflux disease) Pure hypercholesterolemia Benign essential hypertension Surgical History History of cardiac catheterization (~08/28/21) History of cataract extraction with lens replacement (~02/2018) History of squamous cell carcinoma excision (~06/2017) History of excision of lesion (~01/2014) History of squamous cell carcinoma excision (~07/2019) History of bilateral cataract extraction History of colonoscopy History of vasectomy (~1970) Family History Father CVD (cardiovascular disease) Mother No problems noted. Brother Colon cancer Social History Housing: House Alcohol intake: current Alcohol intake frequency: holidays/special occasions only Patient Tobacco Use Status: Former Tobacco user e-Cigarette/Vaping Use: Never Used Second Hand Smoke Exposure: Yes service: Yes Current occupational status: retired Cognitive needs: No Hearing needs: No Vision needs: Yes Review of Systems Const All systems reviewed & are unremarkable except as noted in HPI and below Physical Exam Vital Signs: Last Vital Signs Temp 98.0 F 03/05/25 13:57 Pulse 91 03/05/25 13:57 BP 130/56 L 03/05/25 13:57 Pulse Ox 96 03/05/25 13:57 Oxygen Delivery Method Room Air 03/05/25 13:57 BMI result Body Mass Index 28.9 Assessment & Plan Assessment & Plan (1) Left shoulder pain: Code(s): M25.512 - Pain in left shoulder Qualifiers: Chronicity: acute Qualified Code(s): M25.512 - Pain in left shoulder Plan: Plan - Obtain a left shoulder x-ray to assess for structural abnormalities or dislocation. - My interpretation of XR is no acute fracture or dislocation, pending final Rads read. - Gave pt a sling for support and to minimize movement, with a duration of use based on symptom improvement. Advised ROM twice daily. - Advise the patient to apply ice and consider taking Aleve for pain management, sent Diclofenac if Aleve not effective. - Follow-up with primary care physician, Dr. Vergara, for further evaluation and management at already scheduled appt next week, may need Ortho referral. - Consider orthopedic referral if symptoms do not improve or worsen. Patient was informed and verbally consented to the use of an ambient scribe for clinic note documentation during this visit. (2) Sprain of left shoulder joint: Code(s): S43.402A - Unspecified sprain of left shoulder joint, initial encounter Qualifiers: Encounter type: initial encounter Shoulder sprain type: unspecified sprain Qualified Code(s): S43.402A - Unspecified sprain of left shoulder joint, initial encounter Plan: as above Orders: Orders XR shoulder LT min 2V Today M25.512 - Pain in left shoulder Medications: New diclofenac sodium 50 mg PO Q12H PRN 20 tabs 0RF pain Coding Level of Care Code Est Pt Level 4 (25089) Diagnoses Acute pain of left shoulder M25.512 Chronicity: acute Sprain of left shoulder, unspecified shoulder sprain type, initial encounter S43.402A Encounter type: initial encounter Shoulder sprain type: unspecified sprain
[2025-03-05 13:57] VITALS: BP 130/56; PULSE 91; TEMP 36.7; O2SAT 96; BMI 28.9
--- OUTSIDE RECORDS SUMMARY | 2025-03-05 14:53 | XMS_ITS | Patient Health Record ---
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 Problem Myositis (00692434) Myositis (729.1) Active confirmed Problem Pain in limb (71980751) Pain in Limb (729.5) Active confirmed Problem Plantar fasciitis (813703696) Plantar Fasciitis (728.71) Active confirmed Problem Calcaneal spur (21162083) Calcaneal spur (726.73) Active confirmed Plan Of Treatment No Information Insurance Providers Payer Name Payer Address Payer Phone Subscriber Number Group Number Insured Name Patient Relationship to Insured Coverage Start Date Coverage End Date [facility] 65 Medicare Preferred [address] [place] [address] [id number] Luis Miguel Bass Self - patient is the insured Medical (General) History Medical History History ICD Code hypertension measles chicken pox
--- OUTSIDE RECORDS SUMMARY | 2025-03-05 14:54 | XMS_ITS | Patient Health Record ---
Author Organization [facility] Address [address] [place] [address] Care Team Providers Care Vice President Supply Chain Name Role Phone Jai NIELSON, [place] Primary Care Provider Reese Canales Unavailable [phone] Allergies No Known Allergies Reason For Referral [...] Problem Status W/U Status Risk Notes Problem 590157917 Encounter for screening for malignant neoplasm of colon (Z12.11) Active confirmed Problem Change in bowel habit (76123234) Change in bowel habits (R19.4) Active confirmed Problem Screening for malignant neoplasm of rectum (715342747) Encounter for screening for malignant neoplasm of rectum (Z12.12) Active confirmed Problem 842284650 Gastroesophageal reflux disease without esophagitis (K21.9) Active confirmed Problem 952947154 Gastroesophageal reflux disease, esophagitis presence not specified (K21.9) Active confirmed Problem 492468767 Family history o f colon cancer (Z80.0) Active confirmed Problem 643267787 Belching (R14.2) Active confirmed Plan Of Treatment Future Test Test Name Order Date UPPER GI ENDOSCOPY 10/22/2016 COLONOSCOPY 10/22/2016 Insurance Providers Payer Name Payer Address Payer Phone Subscriber Number Group Number Insured Name Patient Relationship to Insured Coverage Start Date Coverage End Date [facility] [address] [place], [place] [id number] [phone] [id number] JULIETA BALL Self - patient is the insured Medical (General) History Medical History History ICD Code Negative colonoscopies in , 2004, and 2009 except for hyperplastic polyps Denies [place],DM,CVA,Lung disease,renal dise ase HTN Hyperlipidemia CAD with 2 stents placed in Aug 2021-sees Dr. Logan--he did not have a [place] Negative colonoscopy in December of 2016 GERD-EGD [...]
== END 2025-03-05 15:25 | disposition home or self-care (01) ==
PROVIDERS: PCP Internal Medicine; Visit Provider Physician Assistant
DX: M25.512 Pain in left shoulder (principal); S43.402A Unspecified sprain of left shoulder joint, initial encounter

== ENCOUNTER → 2025-03-05 14:44 | Outpatient (BNV) | payer MEDICARE, SELFPAY | PROVIDERS: PCP Internal Medicine; Visit Provider Radiology Diagnostic Radiology | DX: M25.512 Pain in left shoulder (principal) | CPT/HCPCS: 73030 ==

== ENCOUNTER 2025-03-07 08:04 | Outpatient (AMB) | payer MEDICARE, SELFPAY ==
--- OUTSIDE RECORDS SUMMARY | 2025-03-07 08:10 | XMS_ITS | Patient Health Record ---
[facility] Address [address] [place] [address] Care Team Providers Care Community Development Worker Name Role Phone John Vergara MDneth Primary Care Provider Beni Amaro Unavailable [phone] Reason For Referral No Information Medications Medication [...] Status W/U Status Risk Notes Problem Bursitis (02083841) Bursitis (727.3) Active confirmed Problem Congenital pes planus (01313063) Flat Foot, Congenital (754.61) Active confirmed Problem Myositis (28696585) Myositis (729.1) Active confirmed Problem Pain in limb (22781740) Pain in Limb (729.5) Active confirmed Problem Plantar fasciitis (527184069) Plantar Fasciitis (728.71) Active confirmed Problem Calcaneal spur (76844309) Calcaneal spur (726.73) Active confirmed Plan Of Treatment No Information Insurance Providers Payer Name Payer Address Payer Phone Subscriber Number Group Number Insured Name Patient Relationship to Insured Coverage Start Date Coverage End Date [facility] Medicare Preferred [address] [place] [address] [id number] Luis Miguel Bass Self - patient is the insured Medical (General) History Medical History History ICD Code hypertension measles chicken pox
--- OUTSIDE RECORDS SUMMARY | 2025-03-07 08:10 | XMS_ITS | Patient Health Record ---
Author Organization [facility] Address [address] [place] [address] Care Team Providers Care Business Analyst Project Manager Name Role Phone Jai NIELSON, [place] Primary Care Provider Reese Canales Unavailable [phone] Allergies No Known Allergies Reason For Referral [...] Problem Status W/U Status Risk Notes Problem 614563829 Encounter for screening for malignant neoplasm of colon (Z12.11) Active confirmed Problem Change in bowel habit (92740696) Change in bowel habits (R19.4) Active confirmed Problem Screening for malignant neoplasm of rectum (372226636) Encounter for screening for malignant neoplasm of rectum (Z12.12) Active confirmed Problem 232037402 Gastroesophageal reflux disease without esophagitis (K21.9) Active confirmed Problem 036039690 Gastroesophageal reflux disease, esophagitis presence not specified (K21.9) Active confirmed Problem 995658844 Family history o f colon cancer (Z80.0) Active confirmed Problem 455275393 Belching (R14.2) Active confirmed Plan Of Treatment Future Test Test Name Order Date UPPER GI ENDOSCOPY 10/22/2016 COLONOSCOPY 10/22/2016 Insurance Providers Payer Name Payer Address Payer Phone Subscriber Number Group Number Insured Name Patient Relationship to Insured Coverage Start Date Coverage End Date [facility] [address] [place], [place] [id number] JULIETA BALL Self - patient is the insured Medical (General) History Medical History History ICD Code Negative colonoscopies in , 2004, and 2009 except for hyperplastic polyps Denies [place],DM,CVA,Lung disease,renal dise ase HTN Hyperlipidemia CAD with 2 stents placed in Aug 2021-sees Dr. Logan--he did not have a [place] Negative colonoscopy in December of 2016 GERD-EGD [...]
[2025-03-07 08:25] VITALS: BP 122/62; PULSE 67; BMI 28.4
--- NOTE | 2025-03-07 08:25 | MHC.OFFVIS ---
Vital Signs 03/07/25 08:25 Height 6 ft Weight 209 lb 7.026 oz BMI 28.4 BP 122/62 Blood Pressure Location Lt brachial Position Sitting Pulse 67 Pulse Source Pulse Oximeter Intake Visit Reasons: r/s 03/06/25 6 mos followup Allergies No Known Allergies Allergy (Verified 03/05/25 13:57) Medication List - Last Reconciled 03/07/25 by Seymour Logan MD aspirin (Enteric Coated Aspirin) 81 mg PO DAILY atorvastatin 80 mg PO QPM losartan-hydrochlorothiazide 50-12.5 mg 1 tab PO DAILY 90 days HPI Comments Details: Luis Miguel returns for follow up regarding coronary artery disease. Due to symptoms of shortness of breath, he underwent further workup that led to cardiac catheterization and LAD stenting. He was describing some tiredness in the past. Beta-blockers were then stopped and that is seems improved. Otherwise, getting along fine. [facility] Medical History Overweight (BMI 25.0-29.9) Impaired fasting glucose Obesity (BMI 30-39.9) GERD (gastroesophageal reflux disease) Pure hypercholesterolemia Benign essential hypertension Surgical History History of cardiac catheterization (~08/28/21) History of cataract extraction with lens replacement (~02/2018) History of squamous cell carcinoma excision (~06/2017) History of excision of lesion (~01/2014) History of squamous cell carcinoma excision (~07/2019) History of bilateral cataract extraction History of colonoscopy History of vasectomy (~1969) Family History Father CVD (cardiovascular disease) Mother No problems noted. Brother Colon cancer Social History Housing: House Alcohol intake: current Alcohol intake frequency: holidays/special occasions only Patient Tobacco Use Status: Former Tobacco user e-Cigarette/Vaping Use: Never Used Second Hand Smoke Exposure: Yes service: Yes Current occupational status: retired Cognitive needs: No Hearing needs: No Vision needs: Yes Review of Systems Const Denies weakness ENT Denies dizziness Card Denies chest pain, Denies chest pain with activity, Denies syncope, Denies rapid heart rate, Denies pedal edema, Denies edema, Denies leg edema, Denies lightheadedness, Denies palpitations, Denies dyspnea, Denies dyspnea on exertion and Denies orthopnea Resp Denies cough, Denies dyspnea and Denies dyspnea on exertion GI Denies hematochezia and Denies change in stool character Musc Denies abnormal gait, Denies muscle cramps, Denies muscle weakness, Denies numbness, Denies radiating pain into limb and Denies tingling Neuro Denies abnormal gait, Denies dizziness, Denies syncope, Denies numbness, Denies tingling and Denies weakness Endo Denies palpitations Physical Exam Vital Signs: Last Vital Signs Pulse 67 03/07/25 08:25 BP 122/62 03/07/25 08:25 BMI result Body Mass Index 28.4 Const General: comfortable and no acute distress Orientation/consciousness: patient oriented x3 HEENT Other: Unremarkable Head: Yes normal to inspection Neck Neck: Yes normal visual inspection Chest Chest palpation & inspection: normal inspection of the chest Resp Auscultation: clear to auscultation bilaterally Cardio Palpation: normal PMI Heart sounds: S1 normal heart sound present, S2 normal heart sound present, no gallops, no murmurs and no rubs GI Palpation (GI): Soft to palpation Back/Spine/Pelvis Other: unremarkable Skin General skin exam: no rashes or lesions noted Neuro General: patient oriented x3 Extrem General: Yes normal to inspection Psych Mental Status: mental status grossly normal Assessment & Plan Assessment & Plan (1) Atherosclerotic cardiovascular disease: Comment: S/P cardiac cath and stenting of LAD on 08/28/2021 Code(s): I25.10 - Atherosclerotic heart disease of [place] coronary artery without angina pectoris Category: Medical Plan: Cardiac catheterization 2021 showed LAD as well as RCA disease. Status post LAD stenting. RCA is for medical management. Continue aspirin and statins. Off beta-blockers due to bradycardia and tiredness. (2) Essential hypertension: Code(s): I10 - Essential (primary) hypertension Category: Medical Plan: On losartan/HCTZ. (3) Atrial arrhythmia: Code(s): I49.8 - Other specified cardiac arrhythmias Category: Medical Plan: Holter in the past with sinus rhythm with frequent PACs, short runs and occasional ventricular ectopy. No specific implications at this time. (4) YUE (obstructive sleep apnea): Comment: Moderately severe, the AHI 19/hr and oxygen luz was 83%. Code(s): G47.33 - Obstructive sleep apnea (adult) (pediatric) Category: Medical Plan: Continue CPAP. Plan Discussion Notes I discussed with the patient that his current medication regimen is effective, as his cholesterol and blood pressure are well-controlled. We agreed to continue the use of the CPAP machine at night and to monitor his symptoms. I recommended a follow-up visit in one year, unless new symptoms arise, in which case he should contact us sooner. Patient was informed and verbally consented to the use of an ambient scribe for clinic note documentation during this visit. Patient Instructions: - Continue using the CPAP machine every night. - Monitor your symptoms and report any new or worsening symptoms. - Return for a follow-up visit in one year unless new symptoms develop. Coding Level of Care Code Est Pt Level 4 (25504) Complex EM visit Add On G2211 Diagnoses Atherosclerotic cardiovascular disease I25.10 Essential hypertension I10 Atrial arrhythmia I49.8 YUE (obstructive sleep apnea) G47.33
== END 2025-03-07 08:37 | disposition home or self-care (01) ==
LOC: HO.HCS 08:07
PROVIDERS: PCP Internal Medicine; Visit Provider Internal Medicine
DX: I25.10 Atherosclerotic heart disease of native coronary artery without angina pectoris (principal); I10 Essential (primary) hypertension; I49.8 Other specified cardiac arrhythmias; G47.33 Obstructive sleep apnea (adult) (pediatric)
CPT/HCPCS: 99214; G2211

== ENCOUNTER → 2025-03-07 08:04 | Outpatient (BNVA) | payer MEDICARE, SELFPAY | PROVIDERS: PCP Internal Medicine; Visit Provider Internal Medicine | DX: I25.10 Atherosclerotic heart disease of native coronary artery without angina pectoris (principal); I10 Essential (primary) hypertension; I49.8 Other specified cardiac arrhythmias; G47.33 Obstructive sleep apnea (adult) (pediatric); Z99.89 Dependence on other enabling machines and devices | CPT/HCPCS: 99212 ==

== ENCOUNTER 2025-03-12 10:29 | Outpatient (AMB) | payer MEDICARE, SELFPAY ==
[2025-03-12 10:31] VITALS: BP 120/80; PULSE 68; O2SAT 97; BMI 28.6
--- NOTE | 2025-03-12 10:31 | MHC.PC.OV ---
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 Required: No Accompanied by: Self / Same As Patient Allergies No Known Allergies Allergy (Verified 03/12/25 11:07) Medication List - Last Reconciled 03/12/25 by Mando Vergara MD aspirin (Enteric Coated Aspirin) 81 mg PO DAILY atorvastatin 80 mg PO QPM losartan-hydrochlorothiazide 50-12.5 mg 1 tab PO DAILY 90 days Tobacco use date assessed: 03/12/25 Fall risk assessment: 1 Fall in past year Last assessed Fall Risk: 03/12/25 Dental Screening Dental Screen Date: 03/12/25 Did you have a dental visit in the last 12 months?: Yes Did you have a dental problem in the last 6 months where you did not have access to dental care?: No Was dental information given to patient?: Patient has dentist HPI HTN, hyperlipidemia, CAD, OA HPI Details Patient comes in today for his follow up visit for CAD, HTN and hyperlipidemia States that he feels okay except for left shoulder soreness that is due to his fall that occurred last week Relates that he was out in his yard working on his hand truck when he accidentally stepped into a hole and fell on his left side and landed on his left shoulder He went to the walk-in clinic for further evaluation and was sent for x-rays of the left shoulder, which came back showing only (+) OA changes with no acute fractures or injuries States that his shoulder now still feels sore but he is working on it by doing some shoulder exercises that he was previously taught He denies any headaches or dizziness Denies any chest pains, no SOB No nausea/vomiting, no abdominal pain No change in bowel habits noted States that he will need both of his Rx refilled He had his follow up labs done last week - to discuss his results [facility] Medical History Overweight (BMI 25.0-29.9) Impaired fasting glucose Obesity (BMI 30-39.9) GERD (gastroesophageal reflux disease) Pure hypercholesterolemia Benign essential hypertension Surgical History History of cardiac catheterization (~08/28/21) History of cataract extraction with lens replacement (~02/2018) History of squamous cell carcinoma excision (~06/2017) History of excision of lesion (~01/2014) History of squamous cell carcinoma excision (~07/2019) History of bilateral cataract extraction History of colonoscopy History of vasectomy (~1970) Family History Father CVD (cardiovascular disease) Mother No problems noted. Brother Colon cancer Social History Housing: House Alcohol intake: current Alcohol intake frequency: holidays/special occasions only Patient Tobacco Use Status: Former Tobacco user e-Cigarette/Vaping Use: Never Used Second Hand Smoke Exposure: Yes service: Yes Current occupational status: retired Cognitive needs: No Hearing needs: No Vision needs: Yes Questionnaire PHQ-9 Over the last 2 weeks, how often have you been bothered by any of the following problems? 1. Little interest or pleasure in doing things: not at all 2. Feeling down, depressed, or hopeless: not at all 3. Trouble falling or staying asleep, or sleeping too much: not at all 4. Feeling tired or having little energy: not at all 5. Poor appetite or overeating: not at all 6. Feeling bad about yourself - or that you are a failure or have let yourself or your family down: not at all 7. Trouble concentrating on things, such as reading the newspaper or watching television: not at all 8. Moving or speaking so slowly that other people could have noticed. Or the opposite - being so fidgety or restless that you have been moving around a lot more than usual: not at all 9. Thoughts that you would be better off or of hurting yourself in some way: not at all Total score: 0 Depression Screening Interpretation: Negative Depression Screening Done: Yes 76689 - PHQ-9 Billing: Yes Source: Developed by Drs. Reese Santos, Fabiola Staley, Bhavin Webb and colleagues, with an educational valeriano from [employer]. Thrive Questionnaire Date Thrive assessed: 03/12/25 I am a: Patient What is your living situation today?: I have a steady place to live Within the past 12 months, did the food you bought not last and you didn't have the money to get more?: Never true Within the past 12 months, did you worry whether your food would run out before you got money to buy more?: Never true Do you have trouble paying for medicines?: No Do you have trouble getting transportation to medical appointments?: No Do you have trouble paying your heating and electricity bill?: No Do you have trouble taking care of your child, family member or friend?: No Do you have trouble with day-to-day activities such as bathing, preparing meals, shopping, managing finances, etc.?: No Are you currently unemployed and looking for a job?: No Are you interested in more education?: No Please select the resources that you would like help with: None Currently or been in a relationship where the following occur: No concerns reported THRIVE Score: 0 AUDIT C Alcohol Use Questionnaire (AUDIT-C) 1. How often do you have a drink containing alcohol?: 2-4 times a month 2. How many drinks containing alcohol do you have on a typical day when you are drinking?: 1 or 2 3. How often do you have six or more drinks on one occasion?: Never Total Score: 2 Score Reviewed/Action Taken: Yes GONZALEZ-7 AMB Questionnaire GONZALEZ-7 Date GONZALEZ - 7 assessed: 03/12/25 Feeling nervous, anxious, or on edge: 0 = Not at all Not being able to stop or control worryin = Not at all Worrying too much about different things: 0 = Not at all Trouble relaxin = Not at all Being so restless that it is hard to sit still: 0 = Not at all Becoming easily annoyed or irritable: 0 = Not at all Feeling afraid as if something awful might happen: 0 = Not at all Total GONZALEZ-7 score (0-4 normal; 5-9 mild; 10-14 moderate; 15-21 severe): 0 Source: Developed by Drs. Reese Santos, Fabiola Staley, Bhavin Webb and colleagues, with an educational valeriano from [employer]. Review of Systems Const Denies chills, Denies fatigue, Denies fever(s) and Denies headache(s) ENT Denies dysphagia, Denies dizziness, Denies otalgia, Denies headache(s), Denies neck pain, Denies odynophagia and Denies sore throat Card Denies chest pain, Denies palpitations and Denies dyspnea Resp Denies chest congestion, Denies cough and Denies dyspnea GI Denies abdominal pain, Denies constipation, Denies dysphagia, Denies heartburn, Denies diarrhea, Denies nausea, Denies odynophagia and Denies vomiting Denies difficulty urinating, Denies dysuria, Denies nocturia and Denies urinary frequency Musc Reports back pain (on and off ), Reports arthralgias (on and off in both hands/fingers; increased in the left shoulder lately), Denies neck pain and Reports stiffness (of the fingers on both hands, on and off) Skin/Breast Denies rash Neuro Denies dizziness and Denies headache(s) Endo Denies fatigue and Denies palpitations Physical exam (Primary Care) Vital Signs: Last Vital Signs Pulse 68 03/12/25 10:31 BP 120/80 03/12/25 10:31 Pulse Ox 97 03/12/25 10:31 Oxygen Delivery Method Room Air 03/12/25 10:31 BMI result Body Mass Index 28.6 Tobacco/Smoking Status: Tobacco use Status Tobacco use date assessed 03/12/25 03/12/25 10:33 Patient Tobacco Use Status Former Tobacco user 03/12/25 10:33 Tobacco use type 11/08/22 09:23 e-Cigarette/Vaping Use Never Used 03/12/25 10:33 PHQ-9: PHQ-9 Score PHQ-9: Total score 0 03/12/25 10:33 Depression Screening Interpretation: Negative Thrive Assessment: Date of Thrive Assessment Date Thrive assessed 03/12/25 03/12/25 10:33 Currently or been in a relationship where the following occur: No concerns reported Const General: no acute distress and alert HENMT Ears: TM's normal bilaterally and EAC's normal Throat: Yes posterior oropharynx normal and Yes tonsils normal Neck Neck: Yes supple and No lymphadenopathy Thyroid: Thyroid normal Resp Auscultation: clear to auscultation bilaterally, no rales and no wheezes Cardio Rate: regular rate Rhythm: regular rhythm Heart sounds: no murmurs GI Palpation (GI): Soft to palpation and nontender Auscultation: normal bowel sounds General: Yes no CVA tenderness Back/Spine/Pelvis Back: no CVA tenderness Thoracic/Lumbar Spine: lumbar spinal tenderness (mild) Skin Rashes: no rashes Extrem General: Yes no clubbing, cyanosis or edema Left upper extremity: shoulder/upper arm Details: tenderness Location: of the A-C joint and normal ROM Results Reviewed Results Reviewed: Laboratory Tests 03/04/25 07:45 WBC 4.9 Hgb 13.0 L Hct 37.9 L Plt Count 243 Sodium 140 Potassium 4.2 Creatinine 0.88 Estimated GFR > 60 Fasting Glucose 103 H Calcium 9.2 AST 33 ALT 26 Triglycerides 47 Cholesterol 142 LDL Cholesterol, Calc 74 HDL Cholesterol 59 25-OH Vitamin D Total 43.6 TSH 2.28 Ur Specific [place] 1.025 Urine Protein Negative Urine Glucose (UA) Negative Urine Blood Negative Urine Nitrite Negative Ur Leukocyte Esterase Negative Coding Level of Care Code Est Pt Level 4 (77338) Diagnoses Atherosclerotic cardiovascular disease I25.10 Pure hypercholesterolemia E78.00 Benign essential hypertension I10 Impaired fasting glucose R73.01 YUE (obstructive sleep apnea) G47.33 Gastroesophageal reflux disease without esophagitis K21.9 Esophagitis presence: without esophagitis Sprain of left shoulder, unspecified shoulder sprain type, initial encounter S43.402A Encounter type: initial encounter Shoulder sprain type: unspecified sprain Bilateral low back pain without sciatica, unspecified chronicity M54.50 Chronicity: unspecified Back pain laterality: bilateral Sciatica presence: without sciatica Joint pain in fingers of both hands M25.541; M25.542 Overweight (BMI 25.0-29.9) E66.3 Additional Codes PHQ-9 - 92814 - PHQ-9 Billing: Yes ([id number]) Assessment & Plan Assessment & Plan (1) Atherosclerotic cardiovascular disease: Comment: S/P cardiac cath and stenting of LAD on 08/28/2021 Code(s): I25.10 - Atherosclerotic heart disease of [place] coronary artery without angina pectoris Category: Medical Plan: S/P cardiac cath and stenting of LAD on 08/28/2021 - his symptoms and activity tolerance have all improved significantly with cardiac rehab Continue Aspirin 81 mg QD; Brilinta was discontinued by cardiology after 1 year post-PCI He was also on Metoprolol ER 25 mg QD but this was discontinued by cardiology a few months ago due to bradycardia and increased fatigue on the patient's part - patient states that he feels much better since he came off his Metoprolol ER Follow up with cardiology as scheduled (2) Pure hypercholesterolemia: Code(s): E78.00 - Pure hypercholesterolemia, unspecified Category: Medical Plan: Results of his labs done last week reviewed and discussed with patient Reinforced low cholesterol diet Continue Simvastatin 20 mg QD Will recheck his labs and fasting lipids in 4 months for follow up (3) Benign essential hypertension: Code(s): I10 - Essential (primary) hypertension Category: Medical Plan: Reinforced low sodium diet - goal is systolic BP of at least 140 to 150 mm or less Continue Losartan-HCT 50-12.5 mg QD (4) Impaired fasting glucose: Code(s): R73.01 - Impaired fasting glucose Category: Medical Plan: His FBS was at 103 mg/dl on his recent labs; his HgbA1c was normal at 5.6% when previously checked a few months ago Reinforced low calorie/low carb diet; exercise as tolerated (5) YUE (obstructive sleep apnea): Comment: Moderately severe, the AHI 19/hr and oxygen luz was 83%. Code(s): G47.33 - Obstructive sleep apnea (adult) (pediatric) Category: Medical Plan: He is currently still on AutoPaP 6 to 16 cm H20 - states that he is doing well on his CPAP device and he uses it every night when he is sleeping Follow up with Sleep Medicine as scheduled (6) GERD (gastroesophageal reflux disease): Code(s): K21.9 - Gastro-esophageal reflux disease without esophagitis Category: Medical Qualifiers: Esophagitis presence: without esophagitis Qualified Code(s): K21.9 - Gastro-esophageal reflux disease without esophagitis Plan: Dietary restrictions reinforced Continue Omeprazole 20 mg QD (7) Sprain of left shoulder joint: Code(s): S43.402A - Unspecified sprain of left shoulder joint, initial encounter Category: Medical Qualifiers: Encounter type: initial encounter Shoulder sprain type: unspecified sprain Qualified Code(s): S43.402A - Unspecified sprain of left shoulder joint, initial encounter Plan: S/P fall on his left shoulder last week - see HPI X-rays done at the walk-in clinic last week revealed (+) mild to moderate OA of the AC joint but no acute fractures Patient declined offer to refer him to physical therapy States that he is currently doing his shoulder exercises regularly and feels that they are helping and are similar to what PT would do for his shoulder Have advised him that he can call for referral to PT at any time whenever he feels it is needed (8) Low back pain: Code(s): M54.50 - Low back pain, unspecified Category: Medical Qualifiers: Chronicity: unspecified Back pain laterality: bilateral Sciatica presence: without sciatica Qualified Code(s): M54.50 - Low back pain, unspecified Plan: Patient states that he has not had any problems with his lower back lately He last had a bout of sciatica on his right lower back several months ago but states that his symptoms have since subsided Reinforced activity and weight-lifting restrictions Would again recommend lumbar spine x-rays for further evaluation if his low back pain keeps recurring (9) Joint pain in fingers of both hands: Code(s): M25.541 - Pain in joints of right hand; M25.542 - Pain in joints of left hand Category: Medical Plan: Have advised patient previously that these are likely due to OA changes of both hands/fingers Have recommended that he do some hand and finger exercises regularly to help manage his symptoms Patient reports experiencing some issues with trigger finger previously but states that these are now subsiding and he does not need anything else at this time Reminded patient that he can take OTC Tylenol PRN for pain and advised to let us know if his hand symptoms get worse (10) Overweight (BMI 25.0-29.9): Code(s): E66.3 - Overweight Category: Medical Plan: Reinforced diet/exercise as tolerated/lose weight Plan Follow up in 4 months Orders: Orders TSH reflex Free T4 4 Months E78.00 - Pure hypercholesterolemia, unspecified Hemoglobin A1c 4 Months R73.01 - Impaired fasting glucose Complete Blood Count Auto Diff 4 Months D64.9 - Anemia, unspecified Lipid Panel 4 Months E78.00 - Pure hypercholesterolemia, unspecified Comprehensive [place]. Panel Fast 4 Months E78.00 - Pure hypercholesterolemia, unspecified UA CC w/rflx Micro + Cult 4 Months R30.0 - Dysuria Vitamin D 25-OH Total 4 Months E55.9 - Vitamin D deficiency, unspecified Medications: Changed From atorvastatin 80 mg PO QPM 90 tabs 3RF To atorvastatin 80 mg PO QPM 90 tabs 3RF 90 days Refilled losartan-hydrochlorothiazide 50-12.5 mg 1 tab PO DAILY 90 tabs 3RF 90 days I10 - Essential (primary) hypertension
--- OUTSIDE RECORDS SUMMARY | 2025-03-12 11:54 | XMS_ITS | Patient Health Record ---
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, Congenital (754.61) Active confirmed Problem Myositis (57497588) Myositis (729.1) Active confirmed Problem Pain in limb (80267351) Pain in Limb (729.5) Active confirmed Problem Plantar fasciitis (145165742) Plantar Fasciitis (728.71) Active confirmed Problem Calcaneal spur (13143457) Calcaneal spur (726.73) Active confirmed Plan Of Treatment No Information Insurance Providers Payer Name Payer Address Payer Phone Subscriber Number Group Number Insured Name Patient Relationship to Insured Coverage Start Date Coverage End Date [facility] 67 Medicare Preferred [address] [place] [address] [id number] Luis Miguel Bass Self - patient is the insured Medical (General) History Medical History History ICD Code hypertension measles chicken pox
--- OUTSIDE RECORDS SUMMARY | 2025-03-12 11:55 | XMS_ITS | Patient Health Record ---
Author Organization [facility] Address [address] [place] [address] Care Team Providers Care Cement Patcher Name Role Phone Jai NIELSON, Meredith Primary Care Provider Reese Canales Unavailable [phone] Allergies No Known Allergies Reason For Referral [...] Problem Status W/U Status Risk Notes Problem [id number] Encounter for screening for malignant neoplasm of colon (Z12.11) Active confirmed Problem Change in bowel habit (93911256) Change in bowel habits (R19.4) Active confirmed Problem Screening for malignant neoplasm of rectum (427949826) Encounter for screening for malignant neoplasm of rectum (Z12.12) Active confirmed Problem 286263607 Gastroesophageal reflux disease without esophagitis (K21.9) Active confirmed Problem 340666229 Gastroesophageal reflux disease, esophagitis presence not specified (K21.9) Active confirmed Problem 605760769 Family history o f colon cancer (Z80.0) Active confirmed Problem 496851027 Belching (R14.2) Active confirmed Plan Of Treatment Future Test Test Name Order Date UPPER GI ENDOSCOPY 10/22/2016 COLONOSCOPY 10/22/2016 Insurance Providers Payer Name Payer Address Payer Phone Subscriber Number Group Number Insured Name Patient Relationship to Insured Coverage Start Date Coverage End Date [facility] [address] [place], [place] [id number] [phone] [id number] JULIETA BALL Self - patient is the insured Medical (General) History Medical History History ICD Code Negative colonoscopies in , 2004, and 2009 except for hyperplastic polyps Denies [place],DM,CVA,Lung disease,renal dise ase HTN Hyperlipidemia CAD with 2 stents placed in Aug 2021-sees Dr. Logan--he did not have a [place] Negative colonoscopy in December of 2016 GERD-EGD [...]
== END 2025-03-12 11:29 | disposition home or self-care (01) ==
LOC: HO.HMCH 10:30
PROVIDERS: PCP Internal Medicine; Visit Provider Internal Medicine
DX: I25.10 Atherosclerotic heart disease of native coronary artery without angina pectoris (principal); E78.00 Pure hypercholesterolemia, unspecified; I10 Essential (primary) hypertension; R73.01 Impaired fasting glucose; G47.33 Obstructive sleep apnea (adult) (pediatric); K21.9 Gastro-esophageal reflux disease without esophagitis; S43.402A Unspecified sprain of left shoulder joint, initial encounter; M54.50 Low back pain, unspecified; M25.541 Pain in joints of right hand; M25.542 Pain in joints of left hand; E66.3 Overweight

== ENCOUNTER → 2025-03-12 10:29 | Outpatient (BNVA) | payer MEDICARE, SELFPAY | PROVIDERS: PCP Internal Medicine; Visit Provider Internal Medicine | DX: I10 Essential (primary) hypertension (principal); I25.10 Atherosclerotic heart disease of native coronary artery without angina pectoris; E78.00 Pure hypercholesterolemia, unspecified; R73.01 Impaired fasting glucose; G47.33 Obstructive sleep apnea (adult) (pediatric); K21.9 Gastro-esophageal reflux disease without esophagitis; M54.50 Low back pain, unspecified; M25.541 Pain in joints of right hand; M25.542 Pain in joints of left hand; E66.3 Overweight; S43.402A Unspecified sprain of left shoulder joint, initial encounter; W19.XXXA Unspecified fall, initial encounter; Y93.9 Activity, unspecified; Y92.9 Unspecified place or not applicable; Y99.9 Unspecified external cause status; Z68.28 Body mass index [BMI] 28.0-28.9, adult | CPT/HCPCS: 96127; 99212 ==

== ENCOUNTER 2025-05-17 08:52 | Outpatient (AMB) | payer MEDICARE, SELFPAY ==
--- NOTE | 2025-05-17 08:56 | AM.OFFWIN_ITS ---
Intake Vital Signs 05/17/25 08:57 Height 6 ft Weight 215 lb BMI 29.2 BP 130/58 L Blood Pressure Location Rt brachial Position Sitting Pulse 81 Pulse Source Pulse Oximeter Temp 97.8 F Temp Source Oral Pulse Oximetry (%) 97 Oxygen Delivery Method Room Air Intake Visit Reasons: ep back pain on the right side Intake Note: Patient presents with intermittent sharp right sided back pain x3 days Patient Tobacco Use Status: Former Tobacco user Allergies No Known Allergies Allergy (Verified 05/17/25 09:00) Medication List - Last Reconciled 05/17/25 by Grant Penny MD aspirin (Enteric Coated Aspirin) 81 mg PO DAILY atorvastatin 80 mg PO QPM 90 days losartan-hydrochlorothiazide 50-12.5 mg 1 tab PO DAILY 90 days HPI ep back pain on the right side HPI Details History of Present Illness The patient is an 85-year-old male presenting with right-sided back pain. Right-sided back pain: - Onset: Began on Tuesday while putting u p a motion detector in the yard. - Aggravating events: Pain was initially minor but worsened significantly after performing yard work again on Tuesday. - Current status: Severe pain persisting into Tuesday morning. - Relieving factors: Lying down and sitt ing down alleviate the pain; no pain unless moving while in these positions. - Associated symptoms: No associated spi nal tenderness or pain during palpation. Medical History: - No history of kidney stones reported. Medications: - Tylenol (Acetaminophen) 500mg taken on ce on Tuesday with minimal effect. Labs : reviewed, renal functions intact Problem List - Right-sided back pain Plan - Provide prescription for a muscle rela xant and an analgesic medication to manage the pain. - Recommend taking medications with food . - Suggest the patient continue medicatio n for up to 10 days if needed, with the option to stop earlier if pain resolves by Tuesday. - Mention that an x-ray can be ordered, though not deemed necessary currently. f/u PCP Review of Systems - General: No fever no chills - Neurological: No headaches no dizziness - Ear nose throat: No sore throat no hearing difficulty no ear pain - Cardiovascular: No syncope, no chest pain, no palpitations - Gastrointestinal: No nausea vomiting or diarrhea Physical Exam - General: No acute distress - HEENT: No acute findings - Neck: Supple - Respiratory system: Able to talk in f ull sentences, no audible wheeze - Gastrointestinal: No pain - Back : Pain located right thoracic are a, no pain with percussion over spine or flank, + pain with bending down - Extremities: No new findings - BUSINESS SYSTEMS ARCHITECT: Alert awake oriented x3 motor in tact - Skin: Normal turgor [facility] Medical History Overweight (BMI 25.0-29.9) Impaired fasting glucose Obesity (BMI 30-39.9) GERD (gastroesophageal reflux disease) Pure hypercholesterolemia Benign essential hypertension Surgical History History of cardiac catheterization (~08/28/21) History of cataract extraction with lens replacement (~02/2018) History of squamous cell carcinoma excision (~06/2017) History of excision of lesion (~01/2014) History of squamous cell carcinoma excision (~07/2019) History of bilateral cataract extraction History of colonoscopy History of vasectomy (~1969) Family History Father CVD (cardiovascular disease) Mother No problems noted. Brother Colon cancer Social History Housing: House Alcohol intake: current Alcohol intake frequency: holidays/special occasions only Patient Tobacco Use Status: Former Tobacco user e-Cigarette/Vaping Use: Never Used Second Hand Smoke Exposure: Yes service: Yes Current occupational status: retired Cognitive needs: No Hearing needs: No Vision needs: Yes Physical Exam Vital Signs: Last Vital Signs Temp 97.8 F 05/17/25 08:57 Pulse 81 05/17/25 08:57 BP 130/58 L 05/17/25 08:57 Pulse Ox 97 05/17/25 08:57 Oxygen Delivery Method Room Air 05/17/25 08:57 BMI result Body Mass Index 29.2 Results AMB Urinalysis, Automated UA Leukoctes 0 Estefanía/uL Last Edit by Lia Galaviz CMA on 05/17/25 09:11 UA Nitrite Negative Last Edit by Lia Galaviz CMA on 05/17/25 09:11 UA Urobilinogen 0.2 mg/dL Last Edit by Lia Galaviz CMA on 05/17/25 09: 11 UA Protein 0 mg/dL Last Edit by Lia Galaviz, KERRY on 05/17/25 09:11 UA pH 6.0 Last Edit by Lia Galaviz, KERRY on 05/17/25 09:11 UA Blood 0 Edgard/uL Last Edit by Lia Galaviz, KERRY on 05/17/25 09:11 UA Specific Piru 1.020 Last Edit by Lia Galaviz, KERRY on 05/17/25 09 :11 UA Ketone Negative Last Edit by Lia Galaviz, KERRY on 05/17/25 09:11 UA Bilirubin 0 mg/dL Last Edit by Lia Galaviz, KERRY on 05/17/25 09:11 UA Glucose 0 mg/dL Last Edit by Lia Galaviz, KERRY on 05/17/25 09:11 Results Reviewed Results Reviewed: Laboratory Last Values Urine pH (Auto) 6.0 05/17/25 09:05 Specific Piru (Auto) 1.020 05/17/25 09:05 Urine Protein (Auto) 0 mg/dL 05/17/25 09:05 Glucose (UA)(Auto) 0 mg/dL 05/17/25 09:05 Urine Ketones (Auto) Negative 05/17/25 09:05 Urine Blood (Auto) 0 Edgard/uL 05/17/25 09:05 Urine Nitrite (Auto) Negative 05/17/25 09:05 Urine Bilirubin (Auto) 0 mg/dL 05/17/25 09:05 Urine Urobilinogen (Auto) 0.2 mg/dL 05/17/25 09:05 Leukocyte Esterase (Auto) 0 Estefanía/uL 05/17/25 09:05 Assessment & Plan Assessment & Plan (1) Right-sided thoracic back pain: Code(s): M54.6 - Pain in thoracic spine Qualifiers: Chronicity: acute Qualified Code(s): M54.6 - Pain in thoracic spine Plan Right-sided back pain: - Onset: Began on Tuesday while putting up a motion detector in the yard. - Aggravating events: Pain was initially minor but worsened significantly after performing yard work again on Tuesday. - Current status: Severe pain persisting into Tuesday morning. - Relieving factors: Lying down and sitting down alleviate the pain; no pain unless moving while in these positions. - Associated symptoms: No associated spinal tenderness or pain during palpation. Medical History: - No history of kidney stones reported. Medications: - Tylenol (Acetaminophen) 500mg taken once on Tuesday with minimal effect. Labs : reviewed, renal functions intact Problem List - Right-sided back pain Plan - Provide prescription for a muscle relaxant and an analgesic medication to manage the pain. - Recommend taking medications with food. - Suggest the patient continue medication for up to 10 days if needed, with the option to stop earlier if pain resolves by Tuesday. - Mention that an x-ray can be ordered, though not deemed necessary currently. f/u PCP Orders: Orders AMB Urinalysis Automated Today Z13.9 - Encounter for screening, unspecified Medications: New cyclobenzaprine 5 mg PO BEDTIME PRN 10 tabs 0RF muscle spasm 10 days diclofenac sodium take it with food 75 mg PO BID 20 tabs 0RF pain 10 days Coding Level of Care Code Est Pt Level 3 (16799) Diagnoses Acute right-sided thoracic back pain M54.6 Chronicity: acute
[2025-05-17 08:57] VITALS: BP 130/58; PULSE 81; TEMP 36.6; O2SAT 97; BMI 29.2
--- OUTSIDE RECORDS SUMMARY | 2025-05-17 09:42 | XMS_ITS | Patient Health Record ---
[facility] Address [address] [place] [address] Care Team Providers Care Shell Mold Bonder Name Role Phone Mando Vergara MD Primary Care Provider Beni Valdez Unavailable [phone] Reason For Referral No Information Medications Medication [...] Problem Status W/U Status Risk Notes Problem Information temporarily unavailable Bursitis (727.3) Active confirmed Problem Information temporarily unavailable Flat Foot, Congenital (754.61) Active confirmed Problem Information temporarily unavailable Myositis (729.1) Active confirmed Problem Information temporarily unavailable Pain in Limb (729.5) Active confirmed Problem Information temporarily unavailable Plantar Fasciitis (728.71) Active confirmed Problem Information temporarily unavailable Calcaneal spur (726.73) Active confirmed Plan Of Treatment No Information Insurance Providers Payer Name Payer Address Payer Phone Subscriber Number Group Number Insured Name Patient Relationship to Insured Coverage Start Date Coverage End Date BlueCare 65 Medicare Preferred [address] [place] [address] [id number] Luis Miguel Bass Self - patient is the insured Medical (General) History Medical History History ICD Code hypertension measles chicken pox
--- OUTSIDE RECORDS SUMMARY | 2025-05-17 09:42 | XMS_ITS | Patient Health Record ---
Author Organization [facility] Address [address] [place] [address] Care Team Providers Care Lmsw Name Role Phone Jai NIELSON [place] Primary Care Provider Reese Canales Unavailable [phone] Allergies No Known Allergies Reason For Referral No Information Medications Medication SIG (Take, Route, Frequency, Duration) Notes Start Date End Date Status Brilinta 90 MG Oral; Duration: 90 Active Aspirin Low Dose 81 MG TAKE 1 TABLET BY MOUTH EVERY DAY Oral; Duration: 90 Active Losartan Potassium-HCTZ 50-12.5 MG Oral; Duration: 90 Active Atorvastatin Calcium 40 MG Oral; Duration: 90 Active Metoprolol Succinate ER 25 MG Oral; Duration: 90 Active Famotidine 20 MG Oral; Duration: 90 Not-Taking Pantoprazole Sodium 40 MG Oral; Duration: 90 Not-Taking Immunizations Vaccine Route Administration Date Status Comme nts Influenza Unknown 06/16/2021 Administered Problems Problem Type SNOMED Code ICD Code Onset Dates Problem Status W/U Status Risk Notes Problem Information temporarily unavailable Encounter for screening for malignant neoplasm of colon (Z12.11) Active confirmed Problem Information temporarily unavailable Change in bowel habits (R19.4) Active confirmed Problem Information temporarily unavailable Encounter for screening for malignant neoplasm of rectum (Z12.12) Active confirmed Problem Information temporarily unavailable Gastroesophageal reflux disease without esophagitis (K21.9) Active confirmed Problem Information temporarily unavailable Gastroesophageal reflux disease, esophagitis presence not specified (K21.9) Active confirmed Problem Information temporarily unavailable Family history of colon cancer (Z80.0) Active confirmed Problem Information temporarily unavailable Belching (R14.2) Active confirmed Plan Of Treatment Future Test Test Name Order Date UPPER GI ENDOSCOPY 10/22/2016 COLONOSCOPY 10/22/2016 Insurance Providers Payer Name Payer Address Payer Phone Subscriber Number Group Number Insured Name Patient Relationship to Insured Coverage Start Date Coverage End Date [facility] [address] [place], [place] [id number] [phone] [id number] JULIETA BALL Self - patient is the insured Medical (General) History Medical History History ICD Code Negative colonoscopies in , 2004, and 2009 except for hyperplastic polyps Denies [place],DM,CVA,Lung disease,renal dise ase HTN Hyperlipidemia CAD with 2 stents placed in Aug 2021-sees Dr. Logan--he did not have a [place] Negative colonoscopy in December of 2016 GERD-EGD [...]
== END 2025-05-17 09:19 | disposition home or self-care (01) ==
PROVIDERS: PCP Internal Medicine; Visit Provider Internal Medicine
DX: M54.6 Pain in thoracic spine (principal); Z13.9 Encounter for screening, unspecified

== ENCOUNTER → 2025-05-17 08:52 | Outpatient (BNVA) | payer MEDICARE, SELFPAY | PROVIDERS: PCP Internal Medicine; Visit Provider Internal Medicine | DX: M54.6 Pain in thoracic spine (principal) | CPT/HCPCS: 81003; 99212 ==

== ENCOUNTER 2025-06-04 09:42 | Outpatient (AMB) | payer MEDICARE, SELFPAY ==
[2025-06-04 09:57] VITALS: BP 126/70; PULSE 64; O2SAT 98; BMI 29.0
--- NOTE | 2025-06-04 09:57 | MHC.OFFVIS ---
Vital Signs 06/04/25 09:57 Height 6 ft Weight 214 lb BMI 29.0 BP 126/70 Blood Pressure Location Rt brachial Position Sitting Pulse 64 Pulse Source Pulse Oximeter Pulse Oximetry (%) 98 Oxygen Delivery Method Room Air Intake Visit Reasons: Follow Up 1yr-Conf Intake Note: Patient presents follow up YUE. Compliance in chart(90/90days, >=4hrs-100%, Average Usage-7hr 51min, Med Pressure-11.9, Med Leaks-5.8, AHI-7.1) Accompanied by: Self / Same As Patient Allergies No Known Allergies Allergy (Verified 06/04/25 10:01) HPI Comments Details: 85 year old male presents for f/u of Sleep Apnea. Interim med hx: Recent h/o BCC is seeing Dr. Small at [facility] for Mohs procedure. YUE Compliance Report is reviewed with 02/2025 to 04/2025 Total use is 90/90 days and >4 hours 100%. Avg use is 7 hours and 51 min Med press 11.9, Med leaks are 09peM16 to [id number], and AHI is 7.1/hr [place] solano breathing for 2min He washes the mask, rinses hoses, changes filters and fills reservoir with water. He likes his mask and is compliant with daily use. He Denies, SOB, gasping for air, choking or swallowing difficulties. His mask leaks are very loud and this wakes up his at night, the pressures and temperatures are tolerable for him. He would like to try the airfit F30I mask with chin straps. He goes to bed about 10pm, has trouble staying asleep due to the air leaks and notices the mask ends up in or over his mouth in the middle of the night due to him tossing and turning all night. He feels chronically fatigued despite use of cpap, and he does notice sleep is much improved, he can sleep for a longer duration. STM is poor, will forget names, dates, tasks and tools often misplaced for a year now, and contributes it to age. Denies difficulty with vision, headaches, nausea, vomiting, gerd, rls, parasomnias. He drives locally for short distances, avoids night time driving. Diet and mood are stable. [facility] Medical History Overweight (BMI 25.0-29.9) Impaired fasting glucose Obesity (BMI 30-39.9) GERD (gastroesophageal reflux disease) Pure hypercholesterolemia Benign essential hypertension Surgical History History of cardiac catheterization (~08/28/21) History of cataract extraction with lens replacement (~02/2018) History of squamous cell carcinoma excision (~06/2017) History of excision of lesion (~01/2014) History of squamous cell carcinoma excision (~07/2019) History of bilateral cataract extraction History of colonoscopy History of vasectomy (~1970) Family History Father CVD (cardiovascular disease) Mother No problems noted. Brother Colon cancer Social History Housing: House Alcohol intake: current Alcohol intake frequency: holidays/special occasions only Patient Tobacco Use Status: Former Tobacco user e-Cigarette/Vaping Use: Never Used Second Hand Smoke Exposure: Yes service: Yes Current occupational status: retired Cognitive needs: No Hearing needs: No Vision needs: Yes Physical Exam Vital Signs: Last Vital Signs Pulse 64 06/04/25 09:57 BP 126/70 06/04/25 09:57 Pulse Ox 98 06/04/25 09:57 Oxygen Delivery Method Room Air 06/04/25 09:57 BMI result Body Mass Index 29.0 Const General: cooperative, comfortable and no acute distress Nutritional Appearance: average body habitus Orientation/consciousness: patient oriented x3 Limitations: no limitations HEENT Face and sinus: Yes face symmetric Throat: Yes other (mallampti score is 3) Eyes Pupils: Equal, round and reactive pupils present, Pupils normal by confrontation and Pupil accommodation reflex normal Neck Neck: Yes full ROM and Yes supple Resp Effort & Inspection: normal respiratory effort and able to speak in complete sentences Neuro Other: good stride, swings both arms, stooped posture, oral tongue tremors/ bilateral upper ext tremors mild not bothersome gait is normal wears hearing aides bilaterally General: patient oriented x3 and moves all extremities Cranial nerves: Yes CN's II-XII intact bilaterally, Yes Facial sensation intact/muscles of mastication intact, Yes Equal, round and reactive pupils present, Yes Normal facial strength present, Yes Midline tongue present and Yes Ability to bilaterally elevate shoulders present Cognition (Neuro): normal cognition Gait exam (Neuro): Normal gait present Motor exam (neuro): 5/5 motor strength present throughout, Normal motor muscle tone present throughout and Tremors during motor activity present Coordination: [id number] test normal Psych Appearance: well kempt Speech and movement: Slowed movement present (Neuro) Results Reviewed Results Reviewed: YUE Compliance Report is reviewed with 02/2025 to 04/2025 Total use is 90/90 days and >4 hours 100%. 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 Assessment & Plan Assessment & Plan (1) YUE on CPAP: Code(s): G47.33 - Obstructive sleep apnea (adult) (pediatric); Z99.89 - Dependence on other enabling machines and devices Category: Medical (2) Sleep disorder: Code(s): G47.9 - Sleep disorder, unspecified Category: Medical (3) Fatigue: Code(s): R53.83 - Other fatigue Category: Medical Qualifiers: Fatigue type: chronic, unspecified Qualified Code(s): R53.82 - Chronic fatigue, unspecified (4) Chronic fatigue: Code(s): R53.82 - Chronic fatigue, unspecified Category: Medical Plan YUE on cpap therapy: Patient continues to have good clinical effects with use of his cpap use and is compliant. The mask is leaking, will send him for a mask fitting freedom mask, if applicable with chin straps. A.AHI is elevated to 7.1, and leaks can increase to 898vmS23. B.We will adjust his pressures by 2cmH20 up or down. C. Patient education of good sleep hygiene and using Melatonin 5mg PRN if still having trouble staying asleep. D. Labs to r/o anemia Orders: Orders Ferritin Today R53.82 - Chronic fatigue, unspecified Methylmalonic Acid Today G47.9 - Sleep disorder, unspecified, R53.82 - Chronic fatigue, unspecified, R53.83 - Other fatigue Homocysteine Today G47.9 - Sleep disorder, unspecified, R53.82 - Chronic fatigue, unspecified, R53.83 - Other fatigue Vitamin B12 and Folate Today R53.82 - Chronic fatigue, unspecified Patient Instructions: Please complete the following fasting labs to rule out deficiencies. CBC/CMP/ B12/ Vit D/ TSH/ Homocysteine and MMA/ Ferritin. Mask fitting, adjust pressures to improve AHI. Will f/u for compliance in 3months. Labs to r/o deficiencies, chronic fatigue, DRAKE. Serial [id number] Coding Level of Care Code Est Pt Level 4 (43296) Diagnoses YUE on CPAP G47.33; Z99.89 Sleep disorder G47.9 Chronic fatigue R53.82 Fatigue type: chronic, unspecified Chronic fatigue R53.82
--- OUTSIDE RECORDS SUMMARY | 2025-06-04 10:53 | XMS_ITS | Patient Health Record ---
Author Organization [facility] Address [address] [place] [address] Care Team Providers Care Military Pilot Name Role Phone Jai NIELSON [place] Primary Care Provider Reese Canales [phone] Allergies No Known Allergies Reason For Referral [...] Problem Status W/U Status Risk Notes Problem Screening for malignant neoplasm of colon (726696381) Encounter for screening for malignant neoplasm of colon (Z12.11) Active confirmed Problem Change in bowel habit (19063734) Change in bowel habits (R19.4) Active confirmed Problem Screening for malignant neoplasm of rectum (662383447) Encounter for screening for malignant neoplasm of rectum (Z12.12) Active confirmed Problem Gastroesophageal reflux disease without esophagitis (149811156) Gastroesophageal reflux disease without esophagitis (K21.9) Active confirmed Problem Gastroesophageal reflux disease (213645370) Gastroesophageal reflux disease, esophagitis presence not specified (K21.9) Active confirmed Problem Family History of Cancer of Colon (Situation) (259776978) Family history of colon cancer (Z80.0) Active confirmed Problem Belching (12410458) Belching (R14.2) Active con firmed Plan Of Treatment Future Test Test Name Order Date UPPER GI ENDOSCOPY 10/22/2016 COLONOSCOPY 10/22/2016 Insurance Providers Payer Name Payer Address Payer Phone Subscriber Number Group Number Insured Name Patient Relationship to Insured Coverage Start Date Coverage End Date [facility] [address] [place], [place] [id number] JULIETA BALL Self - patient is the insured Medical (General) History Medical History History ICD Code Negative colonoscopies in , 2004, and 2009 except for hyperplastic polyps Denies [place],DM,CVA,Lung disease,renal dise ase HTN Hyperlipidemia CAD with 2 stents placed in Aug 2021-sees Dr. Logan--he did not have a [place] Negative colonoscopy in December of 2016 GERD-EGD [...]
--- OUTSIDE RECORDS SUMMARY | 2025-06-04 10:53 | XMS_ITS | Patient Health Record ---
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 confirmed Problem Myositis (62379346) Myositis (729.1) Active confirmed Problem Pain in limb (21544139) Pain in Limb (729.5) Active confirmed Problem Plantar fasciitis (876967756) Plantar Fasciitis (728.71) Active confirmed Problem Calcaneal spur (96526458) Calcaneal spur (726.73) Active confirmed Plan Of Treatment No Information Insurance Providers Payer Name Payer Address Payer Phone Subscriber Number Group Number Insured Name Patient Relationship to Insured Coverage Start Date Coverage End Date BlueCare 65 Medicare Preferred [address] [place] [address] [id number] Luis Miguel Bass Self - patient is the insured Medical (General) History Medical History History ICD Code hypertension measles chicken pox
== END 2025-06-04 10:40 | disposition home or self-care (01) ==
LOC: HO.HSMS 09:42
PROVIDERS: PCP Internal Medicine; Visit Provider Physician Assistant Medical
DX: G47.33 Obstructive sleep apnea (adult) (pediatric) (principal); Z99.89 Dependence on other enabling machines and devices; G47.9 Sleep disorder, unspecified; R53.82 Chronic fatigue, unspecified
CPT/HCPCS: 99214

== ENCOUNTER → 2025-06-04 09:42 | Outpatient (BNVA) | payer MEDICARE, SELFPAY | PROVIDERS: PCP Internal Medicine; Visit Provider Physician Assistant Medical | DX: G47.33 Obstructive sleep apnea (adult) (pediatric) (principal); G47.9 Sleep disorder, unspecified; R53.82 Chronic fatigue, unspecified; Z99.89 Dependence on other enabling machines and devices | CPT/HCPCS: 99212 ==

== ENCOUNTER 2025-06-07 07:34 | Outpatient (REF) | payer MEDICARE, SELFPAY ==
--- OUTSIDE RECORDS SUMMARY | 2025-06-07 07:37 | XMS_ITS | Patient Health Record ---
Author Organization [facility] Address [address] [place] [address] Care Team Providers Care Wardsperson Name Role Phone Jai NIELSON [place] Primary Care Provider Reese Canales [phone] Allergies No Known Allergies Reason For Referral [...] Problem Screening for malignant neoplasm of colon (053683984) Encounter for screening for malignant neoplasm of colon (Z12.11) Active confirmed Problem Change in bowel habit (69605065) Change in bowel habits (R19.4) Active confirmed Problem Screening for malignant neoplasm of rectum (831375964) Encounter for screening for malignant neoplasm of rectum (Z12.12) Active confirmed Problem Gastroesophageal reflux disease without esophagitis (822729651) Gastroesophageal reflux disease without esophagitis (K21.9) Active confirmed Problem Gastroesophageal reflux disease (432755210) Gastroesophageal reflux disease, esophagitis presence not specified (K21.9) Active confirmed Problem Family History of Cancer of Colon (Situation) (609960414) Family history of colon cancer (Z80.0) Active confirmed Problem Belching (18119974) Belching (R14.2) Active con firmed Plan Of Treatment Future Test Test Name Order Date UPPER GI ENDOSCOPY 10/22/2016 COLONOSCOPY 10/22/2016 Insurance Providers Payer Name Payer Address Payer Phone Subscriber Number Group Number Insured Name Patient Relationship to Insured Coverage Start Date Coverage End Date [facility] [address] [place], [place] [id number] [phone] [id number] JULIETA BALL Self - patient is the insured Medical (General) History Medical History History ICD Code Negative colonoscopies in , 2004, and 2009 except for hyperplastic polyps Denies [place],DM,CVA,Lung disease,renal dise ase HTN Hyperlipidemia CAD with 2 stents placed in Aug 2021-sees Dr. Logan--he did not have a [place] Negative colonoscopy in December of 2016 GERD-EGD [...]
--- OUTSIDE RECORDS SUMMARY | 2025-06-07 07:37 | XMS_ITS | Patient Health Record ---
[facility] Address [address] [place] [address] Care Team Providers Care Cow Washer Name Role Phone Katherine Vergara MDh Primary Care Provider Beni Valdez Unavailable [phone] Reason For Referral No Information Medications Medication [...] Status W/U Status Risk Notes Problem Bursitis (61871538) Bursitis (727.3) Active confirmed Problem Congenital pes planus (07717233) Flat Foot, Congenital (754.61) Active confirmed Problem Myositis (81912167) Myositis (729.1) Active confirmed Problem Pain in limb (94027957) Pain in Limb (729.5) Active confirmed Problem Plantar fasciitis (214286038) Plantar Fasciitis (728.71) Active confirmed Problem Calcaneal spur (77452991) Calcaneal spur (726.73) Active confirmed Plan Of Treatment No Information Insurance Providers Payer Name Payer Address Payer Phone Subscriber Number Group Number Insured Name Patient Relationship to Insured Coverage Start Date Coverage End Date BlueCare 65 Medicare Preferred [address] [place] [address] [id number] Luis Miguel Bass Self - patient is the insured Medical (General) History Medical History History ICD Code hypertension measles chicken pox
[2025-06-07 08:31] LABS: Ferritin 486 ng/mL (20-250)
[2025-06-07 08:46] LABS: Folate 13.2 ng/mL (> or = 4.0); Vitamin B12 552 pg/mL (200-900)
== END 2025-06-07 07:35 | disposition home or self-care (01) ==
LOC: HO.LAB 07:34
PROVIDERS: Visit Provider Physician Assistant Medical
DX: R53.83 Other fatigue (principal); R53.82 Chronic fatigue, unspecified; G47.9 Sleep disorder, unspecified
CPT/HCPCS: 36415; 82607; 82728; 82746; 83090; 83921

== ENCOUNTER 2025-07-10 08:03 | Outpatient (REF) | payer MEDICARE, SELFPAY ==
--- OUTSIDE RECORDS SUMMARY | 2025-07-10 08:08 | XMS_ITS | Patient Health Record ---
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 Problem Myositis (27314887) Myositis (729.1) Active confirmed Problem Pain in limb (98134746) Pain in Limb (729.5) Active confirmed Problem Plantar fasciitis (564639805) Plantar Fasciitis (728.71) Active confirmed Problem Calcaneal spur (04600788) Calcaneal spur (726.73) Active confirmed Plan Of Treatment No Information Insurance Providers Payer Name Payer Address Payer Phone Subscriber Number Group Number Insured Name Patient Relationship to Insured Coverage Start Date Coverage End Date BlueCare 65 Medicare Preferred [address] [place] [address] [id number] Luis Miguel Bass Self - patient is the insured Medical (General) History Medical History History ICD Code hypertension measles chicken pox
--- OUTSIDE RECORDS SUMMARY | 2025-07-10 08:09 | XMS_ITS | Patient Health Record ---
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 Assistant Name Role Phone Jai NIELSON, [place] Primary Care Provider Reese Canales Unavailable [phone] Allergies No Known Allergies Reason For Referral No Information Medications Medication SIG (Take, Route, Frequency, Duration) Notes Start Date End Date Status Brilinta 90 MG Tablet Oral; Duration: 90 Active Aspirin Low Dose 81 MG Tablet Delayed Release TAKE 1 TABLET BY MOUTH EVERY DAY Oral; Duration: 90 Active Losartan Potassium-HCTZ 50-12.5 MG Tablet Oral; Duration: 90 Acti ve Atorvastatin Calcium 40 MG Tablet Oral; Duration: 90 Active Metoprolol Succinate ER 25 MG Tablet Extended Release 24 Hour Oral; Duration: 90 Active Famotidine 20 MG Tablet Oral; Duration: 90 Not-Taking/PRN Pantoprazole Sodium 40 MG Tablet Delayed Release Oral; Duration: 90 Not-Takin g/PRN Immunizations Vaccine Route Administration Date Status Comme nts Influenza Unknown 06/16/2021 Administered Social History Social History Additional Details Category Social Info Options Details Miscellaneous: Marital status: Occupation: retired Section Notes: former smoker-quit over 30 y ears ago/ occasional beer former smoker-quit over 30 y ears ago/ occasional beer Former smoker-quit over 30 y ears ago/ occasional beer Problems Problem Type SNOMED Code ICD Code Onset Dates Problem Status W/U Status Risk Notes Problem Screening for malignant neoplasm of colon (843735771) Encounter for screening for malignant neoplasm of colon (Z12.11) Active confirmed Problem Change in bowel habit (67236424) Change in bowel habits (R19.4) Active confirmed Problem Screening for malignant neoplasm of rectum (255121311) Encounter for screening for malignant neoplasm of rectum (Z12.12) Active confirmed Problem Gastroesophageal reflux disease without esophagitis (882266174) Gastroesophageal reflux disease without esophagitis (K21.9) Active confirmed Problem Gastroesophageal reflux disease (940800366) Gastroesophageal reflux disease, esophagitis presence not specified (K21.9) Active confirmed Problem Family History of Cancer of Colon (Situation) (987661931) Family history of colon cancer (Z80.0) Active confirmed Problem Belching (32124338) Belching (R14.2) Active con firmed Plan Of Treatment Future Test Test Name Order Date UPPER GI ENDOSCOPY 10/22/2016 COLONOSCOPY 10/22/2016 Insurance Providers Payer Name Payer Address Payer Phone Subscriber Number Group Number Insured Name Patient Relationship to Insured Coverage Start Date Coverage End Date [facility] [address] [place], [place] [id number] [phone] [id number] JULIETA BALL Self - patient is the insured Medical (General) History Medical History History ICD Code Negative colonoscopies in , 2004, and 2009 except for hyperplastic polyps Denies [place],DM,CVA,Lung disease,renal dise ase HTN Hyperlipidemia CAD with 2 stents placed in Aug 2021-sees Dr. Logan--he did not have a [place] Negative colonoscopy in December of 2016 GERD-EGD [...]
[2025-07-10 10:31] LABS: Appearance Urine Cloudy; Glucose Urine UA Negative (Negative); PH 6.0 (5.0-9.0); Specific Gravity - Urine 1.025 (1.005-1.025)
[2025-07-10 10:32] LABS: MANUAL DIFF FLAG NO
[2025-07-10 10:51] LABS: Hematocrit 38.6 % (42.0-52.0); Hemoglobin 13.0 g/dl (14.0-18.0); Imm Gran Abs Auto 0.02 X10*3/uL (0.00-0.03); Imm Gran Pct Auto 0.4 % (0.0-0.4); Lymphocytes Absolute Auto 1.0 X10*3/uL (1.2-4.9); Mean Corpuscular HGB Conc 33.7 g/dl (31.0-36.0); Mean Corpuscular Hemoglobin 31.9 pg (27.0-33.0); Mean Corpuscular Volume 94.8 fL (80.0-98.0); NRBC Abs Auto 0.000 X10*3/uL (0.0-0.012); NRBC Pct Auto 0.0 /100WBC (0.0-0.2); Platelet Count 239 X10*3/uL (160-400); Red Blood Count 4.07 X10*6/uL (4.60-5.80); White Blood Count 5.5 X10*3/uL (4.8-10.8)
[2025-07-10 11:29] LABS: Alanine Aminotransferase 26 U/L (0-40); Albumin Level 4.1 g/dL (3.5-5.0); Alkaline Phosphatase 94 U/L (39-117); Anion Gap 12 (12-20); Aspartate Amino Transferase 31 U/L (5-37); Blood Urea Nitrogen 21 mg/dL (9-16); Calcium 9.2 mg/dL (8.4-10.2); Carbon Dioxide 27 mmol/L (22-29); Chloride 104 mmol/L (96-108); Cholesterol 151 mg/dL (<200); Estimated Glomerular Filt Rate > 60; HDL Cholesterol 62 mg/dL (>40); Potassium 4.2 mmol/L (3.3-5.1); Sodium 139 mmol/L (135-145); Total Protein 7.3 g/dL (6.5-8.0); Triglycerides 47 mg/dL (<150)
== END 2025-07-10 08:04 | disposition home or self-care (01) ==
LOC: HO.10HDL 08:03
PROVIDERS: Visit Provider Internal Medicine
DX: R73.01 Impaired fasting glucose (principal); E55.9 Vitamin D deficiency, unspecified; R30.0 Dysuria; E78.00 Pure hypercholesterolemia, unspecified; D64.9 Anemia, unspecified
CPT/HCPCS: 36415; 80053; 80061; 81003; 82306; 83036; 84443; 85025

== ENCOUNTER 2025-07-23 09:28 | Outpatient (AMB) | payer MEDICARE, SELFPAY ==
[2025-07-23 09:48] VITALS: BP 140/70; PULSE 63; O2SAT 98; BMI 29.1
--- NOTE | 2025-07-23 09:48 | A.OFFPC_ITS ---
Vital Signs 07/23/25 09:48 Height 6 ft Weight 214 lb 6 oz BMI 29.1 BP 140/70 H Blood Pressure Location Lt brachial Position Sitting Pulse 63 Pulse Source Pulse Oximeter Pulse Oximetry (%) 98 Oxygen Delivery Method Room Air Intake Visit Reasons: hyperlipidemia, HTN, CAD, IFG, YUE Credit Or Loans Officer Required: No Accompanied by: Self / Same As Patient Allergies No Known Allergies Allergy (Verified 07/23/25 10:14) Medication List - Last Reconciled 07/23/25 by Mando Vergara MD aspirin (Enteric Coated Aspirin) 81 mg PO DAILY atorvastatin 80 mg PO QPM 90 days diclofenac sodium 75 mg PO BID 10 days losartan-hydrochlorothiazide 50-12.5 mg 1 tab PO DAILY 90 days triamcinolone acetonide 0.1% appl topical Tobacco use date assessed: 07/23/25 Fall risk assessment: 1 Fall in past year Last assessed Fall Risk: 07/23/25 Dental Screening Dental Screen Date: 07/23/25 Did you have a dental visit in the last 12 months?: Yes Did you have a dental problem in the last 6 months where you did not have access to dental care?: No Was dental information given to patient?: Patient has dentist HPI hyperlipidemia, HTN, CAD, IFG, YUE HPI Details Patient comes in today for his follow up visit for CAD, HTN and hyperlipidemia States that he feels okay He reports having had three surgeries done for skin cancer last month - 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, and 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 the back of the right ear and from the nose He was advised at this time that no further treatments were recommended for the skin cancers He denies any headaches or dizziness Denies any chest pains, no SOB No nausea/vomiting, no abdominal pain No change in bowel habits noted He has been using a CPAP device at night for his obstructive sleep apnea, which he reports is working well and his events have supposedly decreased from a baseline of 18 per hour to consistently under 5 per hour with treatment He had his follow up labs done a couple of weeks ago - to discuss his results [facility] Medical History Overweight (BMI 25.0-29.9) Impaired fasting glucose Obesity (BMI 30-39.9) GERD (gastroesophageal reflux disease) Pure hypercholesterolemia Benign essential hypertension Surgical History History of cardiac catheterization (~08/28/21) History of cataract extraction with lens replacement (~02/2018) History of squamous cell carcinoma excision (~06/2017) History of excision of lesion (~01/2014) History of squamous cell carcinoma excision (~07/2019) History of bilateral cataract extraction History of colonoscopy History of vasectomy (~1970) Family History Father CVD (cardiovascular disease) Mother No problems noted. Brother Colon cancer Social History Housing: House Alcohol intake: current Alcohol intake frequency: holidays/special occasions only Patient Tobacco Use Status: Former Tobacco user e-Cigarette/Vaping Use: Never Used Second Hand Smoke Exposure: Yes service: Yes Current occupational status: retired Cognitive needs: No Hearing needs: No Vision needs: Yes Questionnaire PHQ-9 Over the last 2 weeks, how often have you been bothered by any of the following problems? 1. Little interest or pleasure in doing things: not at all 2. Feeling down, depressed, or hopeless: not at all 3. Trouble falling or staying asleep, or sleeping too much: not at all 4. Feeling tired or having little energy: not at all 5. Poor appetite or overeating: not at all 6. Feeling bad about yourself - or that you are a failure or have let yourself or your family down: not at all 7. Trouble concentrating on things, such as reading the newspaper or watching television: not at all 8. Moving or speaking so slowly that other people could have noticed. Or the opposite - being so fidgety or restless that you have been moving around a lot more than usual: not at all 9. Thoughts that you would be better off or of hurting yourself in some way: not at all Total score: 0 Depression Screening Interpretation: Negative Depression Screening Done: Yes 25334 - PHQ-9 Billing: Yes Source: Developed by Drs. Reese Santos, Fabiola Staley, Bhavin Webb and colleagues, with an educational valeriano from [employer]. Thrive Questionnaire Date Thrive assessed: 07/23/25 I am a: Patient What is your living situation today?: I have a steady place to live Within the past 12 months, did the food you bought not last and you didn't have the money to get more?: Never true Within the past 12 months, did you worry whether your food would run out before you got money to buy more?: Never true Do you have trouble paying for medicines?: No Do you have trouble getting transportation to medical appointments?: No Do you have trouble paying your heating and electricity bill?: No Do you have trouble taking care of your child, family member or friend?: No Do you have trouble with day-to-day activities such as bathing, preparing meals, shopping, managing finances, etc.?: No Are you currently unemployed and looking for a job?: No Are you interested in more education?: No Please select the resources that you would like help with: None Currently or been in a relationship where the following occur: No concerns reported THRIVE Score: 0 AUDIT C Alcohol Use Questionnaire (AUDIT-C) 1. How often do you have a drink containing alcohol?: 2-4 times a month 2. How many drinks containing alcohol do you have on a typical day when you are drinking?: 1 or 2 3. How often do you have six or more drinks on one occasion?: Never Total Score: 2 Score Reviewed/Action Taken: Yes GONZALEZ-7 AMB Questionnaire GONZALEZ-7 Date GONZALEZ - 7 assessed: 07/23/25 Feeling nervous, anxious, or on edge: 0 = Not at all Not being able to stop or control worryin = Not at all Worrying too much about different things: 0 = Not at all Trouble relaxin = Not at all Being so restless that it is hard to sit still: 0 = Not at all Becoming easily annoyed or irritable: 0 = Not at all Feeling afraid as if something awful might happen: 0 = Not at all Total GONZALEZ-7 score (0-4 normal; 5-9 mild; 10-14 moderate; 15-21 severe): 0 Source: Developed by Drs. Reese Santos, Fabiola Staley, Bhavin Webb and colleagues, with an educational valeriano from [employer]. Review of Systems Const Denies chills, Denies fatigue, Denies fever(s) and Denies headache(s) ENT Denies dysphagia, Denies dizziness, Denies otalgia, Denies headache(s), Denies neck pain, Denies odynophagia and Denies sore throat Card Denies chest pain, Denies palpitations and Denies dyspnea Resp Denies chest congestion, Denies cough and Denies dyspnea GI Denies abdominal pain, Denies constipation, Denies dysphagia, Denies heartburn, Denies diarrhea, Denies nausea, Denies odynophagia and Denies vomiting Denies difficulty urinating, Denies dysuria, Denies nocturia and Denies urinary frequency Musc Reports back pain (on and off ), Reports arthralgias (on and off in both hands/fingers; increased in the left shoulder lately), Denies neck pain and Rep orts stiffness (of the fingers on both hands, on and off) Skin/Breast Denies rash Neuro Denies dizziness and Denies headache(s) Endo Denies fatigue and Denies palpitations Physical exam (Primary Care) Vital Signs: Last Vital Signs Pulse 63 07/23/25 09:48 BP 140/70 H 07/23/25 09:48 Pulse Ox 98 07/23/25 09:48 Oxygen Delivery Method Room Air 07/23/25 09:48 BMI result Body Mass Index 29.1 Tobacco/Smoking Status: Tobacco use Status Tobacco use date assessed 07/23/25 07/23/25 09:53 Patient Tobacco Use Status Former Tobacco user 07/23/25 09:53 Tobacco use type 11/08/22 09:23 e-Cigarette/Vaping Use Never Used 07/23/25 09:53 PHQ-9: PHQ-9 Score PHQ-9: Total score 0 07/23/25 15:09 Depression Screening Interpretation: Negative Thrive Assessment: Date of Thrive Assessment Date Thrive assessed 07/23/25 07/23/25 09:53 Currently or been in a relationship where the following occur: No concerns reported Const General: no acute distress and alert HENMT Ears: TM's normal bilaterally and EAC's normal Throat: Yes posterior oropharynx normal and Yes tonsils normal Neck Neck: Yes supple and No lymphadenopathy Thyroid: Thyroid normal Resp Auscultation: clear to auscultation bilaterally, no rales and no wheezes Cardio Rate: regular rate Rhythm: regular rhythm Heart sounds: no murmurs GI Palpation (GI): Soft to palpation and nontender Auscultation: normal bowel sounds General: Yes no CVA tenderness Back/Spine/Pelvis Back: no CVA tenderness Thoracic/Lumbar Spine: lumbar spinal tenderness (mild) Skin Rashes: no rashes Extrem General: Yes no clubbing, cyanosis or edema Left upper extremity: shoulder/upper arm Details: tenderness Location: of the A- C joint and normal ROM Results Reviewed Results Reviewed: Laboratory Tests 07/10/25 07/10/25 08:12 08:15 WBC 5.5 Hgb 13.0 L Hct 38.6 L Plt Count 239 Sodium 139 Potassium 4.2 Creatinine 0.83 Estimated GFR > 60 Fasting Glucose 101 H Hemoglobin A1c % 5.5 Calcium 9.2 AST 31 ALT 26 Triglycerides 47 Cholesterol 151 LDL Cholesterol, Calc 80 HDL Cholesterol 62 25-OH Vitamin D Total 39.6 TSH 1.72 Ur Specific [place] 1.025 Urine Protein Negative Urine Glucose (UA) Negative Urine Blood Negative Urine Nitrite Negative Ur Leukocyte Esterase Negative Coding Level of Care Code Est Pt Level 4 (59780) Add On Problem Visit Only Diagnoses Atherosclerotic cardiovascular disease I25.10 Pure hypercholesterolemia E78.00 Benign essential hypertension I10 Impaired fasting glucose R73.01 YUE (obstructive sleep apnea) G47.33 Gastroesophageal reflux disease without esophagitis K21.9 Esophagitis presence: without esophagitis Bilateral low back pain without sciatica, unspecified chronicity M54.50 Back pain laterality: bilateral Chronicity: unspecified Sciatica presence: without sciatica Joint pain in fingers of both hands M25.541; M25.542 Overweight (BMI 25.0-29.9) E66.3 Additional Codes PHQ-9 - 81220 - PHQ-9 Billing: Yes ([id number]) Assessment & Plan Assessment & Plan (1) Atherosclerotic cardiovascular disease: Comment: S/P cardiac cath and stenting of LAD on 08/28/2021 Code(s): I25.10 - Atherosclerotic heart disease of [place] coronary artery without angina pectoris Category: Medical Plan: S/P cardiac cath and stenting of LAD on 08/28/2021 - his symptoms and activity tolerance have all improved significantly with PCI and cardiac rehab Continue Aspirin 81 mg QD; Brilinta was discontinued by cardiology after 1 year post-PCI He was also on Metoprolol ER 25 mg QD but this was discontinued by cardiology due to bradycardia and increased fatigue on the patient's part - patient states that he feels much better since he came off his Metoprolol ER Follow up with cardiology as scheduled (2) Pure hypercholesterolemia: Code(s): E78.00 - Pure hypercholesterolemia, unspecified Category: Medical Plan: Results of his labs done a couple of weeks ago reviewed and discussed with patient Reinforced low cholesterol diet Continue Atorvastatin 80 mg QD Will recheck his labs and fasting lipids in 4 months for follow up (3) Benign essential hypertension: Code(s): I10 - Essential (primary) hypertension Category: Medical Plan: Reinforced low sodium diet - goal is systolic BP of at least 130 to 140 mm or less Continue Losartan-HCT 50-12.5 mg QD Patient is reminded to continue monitoring his blood pressure regularly (4) Impaired fasting glucose: Code(s): R73.01 - Impaired fasting glucose Category: Medical Plan: His FBS was at 101 mg/dl on his recent labs and his HgbA1c was normal at 5.5% on his recent labs (HgbA1c was at 5.6% when previously checked earlier this year Reinforced low calorie/low carb diet; exercise as tolerated (5) YUE (obstructive sleep apnea): Comment: Moderately severe, the AHI 19/hr and oxygen luz was 83%. Code(s): G47.33 - Obstructive sleep apnea (adult) (pediatric) Category: Medical Plan: He is currently still on AutoPaP 6 to 16 cm H20 - states that he is doing well on his CPAP device and he uses it every night when he is sleeping Follow up with Sleep Medicine as scheduled (6) GERD (gastroesophageal reflux disease): Code(s): K21.9 - Gastro-esophageal reflux disease without esophagitis Category: Medical Qualifiers: Esophagitis presence: without esophagitis Qualified Code(s): K21.9 - Gastro-esophageal reflux disease without esophagitis Plan: Dietary restrictions reinforced Continue Omeprazole 20 mg QD (7) Low back pain: Code(s): M54.50 - Low back pain, unspecified Category: Medical Qualifiers: Back pain laterality: bilateral Chronicity: unspecified Sciatica presence: without sciatica Qualified Code(s): M54.50 - Low back pain, unspecified Plan: Patient states that he has not had any problems with his lower back lately He last had a bout of sciatica on his right lower back several months ago but states that his symptoms have since subsided Reinforced activity and weight-lifting restrictions Would again recommend lumbar spine x-rays for further evaluation if his low back pain keeps recurring (8) Joint pain in fingers of both hands: Code(s): M25.541 - Pain in joints of right hand; M25.542 - Pain in joints of left hand Category: Medical Plan: Have advised patient previously that these are likely due to OA changes of both hands/fingers Have recommended that he do some hand and finger exercises regularly to help manage his symptoms Patient reports experiencing some issues with trigger finger previously but states that these have now subsided and he does not need anything else at this time Reminded patient that he can take OTC Tylenol PRN for pain and advised to let us know if his hand symptoms get worse (9) Overweight (BMI 25.0-29.9): Code(s): E66.3 - Overweight Category: Medical Plan: Reinforced diet/exercise as tolerated/lose weight Plan Follow up in 4 months Orders: Orders Complete Blood Count Auto Diff 4 Months D64.9 - Anemia, unspecified Lipid Panel 4 Months E78.00 - Pure hypercholesterolemia, unspecified TSH reflex Free T4 4 Months E78.00 - Pure hypercholesterolemia, unspecified Comprehensive [place]. Panel Fast 4 Months E78.00 - Pure hypercholesterolemia, unspecified Hemoglobin A1c 4 Months R73.01 - Impaired fasting glucose UA CC w/rflx Micro + Cult 4 Months R30.0 - Dysuria Vitamin D 25-OH Total 4 Months E55.9 - Vitamin D deficiency, unspecified
--- OUTSIDE RECORDS SUMMARY | 2025-07-23 12:08 | XMS_ITS | Patient Health Record ---
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 Name Role Phone Katherine Vergara MDh Primary Care Provider Beni Valdez Unavailable [phone] Reason For Referral No Information Medications Medication [...] Status W/U Status Risk Notes Problem Bursitis (65202104) Bursitis (727.3) Active confirmed Problem Congenital pes planus (04687518) Flat Foot, Congenital (754.61) Active confirmed Problem Myositis (82463319) Myositis (729.1) Active confirmed Problem Pain in limb (70205657) Pain in Limb (729.5) Active confirmed Problem Plantar fasciitis (721852990) Plantar Fasciitis (728.71) Active confirmed Problem Calcaneal spur (79492248) Calcaneal spur (726.73) Active confirmed Plan Of Treatment No Information Insurance Providers Payer Name Payer Address Payer Phone Subscriber Number Group Number Insured Name Patient Relationship to Insured Coverage Start Date Coverage End Date BlueCare 65 Medicare Preferred [address] [place] [address] [phone] [id number] Luis Miguel Bass Self - patient is the insured Medical (General) History Medical History History ICD Code hypertension measles chicken pox
--- OUTSIDE RECORDS SUMMARY | 2025-07-23 12:08 | XMS_ITS | Patient Health Record ---
Author Organization [facility] Address [address] [place] [address] Care Team Providers Care Drawbridge Tender Name Role Phone Jai NIELSON, [place] Primary Care Provider Reese Canales Unavailable [phone] Allergies No Known Allergies Reason For Referral [...] Problem Screening for malignant neoplasm of colon (881482683) Encounter for screening for malignant neoplasm of colon (Z12.11) Active confirmed Problem Change in bowel habit (00615396) Change in bowel habits (R19.4) Active confirmed Problem Screening for malignant neoplasm of rectum (284235010) Encounter for screening for malignant neoplasm of rectum (Z12.12) Active confirmed Problem Gastroesophageal reflux disease without esophagitis (109119870) Gastroesophageal reflux disease without esophagitis (K21.9) Active confirmed Problem Gastroesophageal reflux disease (423938369) Gastroesophageal reflux disease, esophagitis presence not specified (K21.9) Active confirmed Problem Family History of Cancer of Colon (Situation) (301466769) Family history of colon cancer (Z80.0) Active confirmed Problem Belching (40170654) Belching (R14.2) Active con firmed Plan Of Treatment Future Test Test Name Order Date UPPER GI ENDOSCOPY 10/22/2016 COLONOSCOPY 10/22/2016 Insurance Providers Payer Name Payer Address Payer Phone Subscriber Number Group Number Insured Name Patient Relationship to Insured Coverage Start Date Coverage End Date [facility] [address] [place], [place] [id number] JULIETA BALL Self - patient is the insured Medical (General) History Medical History History ICD Code Negative colonoscopies in , 2004, and 2009 except for hyperplastic polyps Denies [place],DM,CVA,Lung disease,renal dise ase HTN Hyperlipidemia CAD with 2 stents placed in Aug 2021-sees Dr. Logan--he did not have a [place] Negative colonoscopy in December of 2016 GERD-EGD [...]
== END 2025-07-23 10:53 | disposition home or self-care (01) ==
LOC: HO.HMCH 09:28
PROVIDERS: PCP Internal Medicine; Visit Provider Internal Medicine
DX: I25.10 Atherosclerotic heart disease of native coronary artery without angina pectoris (principal); E78.00 Pure hypercholesterolemia, unspecified; I10 Essential (primary) hypertension; R73.01 Impaired fasting glucose; G47.33 Obstructive sleep apnea (adult) (pediatric); K21.9 Gastro-esophageal reflux disease without esophagitis; M54.50 Low back pain, unspecified; M25.541 Pain in joints of right hand; M25.542 Pain in joints of left hand; E66.3 Overweight

== ENCOUNTER → 2025-07-23 09:28 | Outpatient (BNVA) | payer MEDICARE, SELFPAY | PROVIDERS: PCP Internal Medicine; Visit Provider Internal Medicine | DX: I25.10 Atherosclerotic heart disease of native coronary artery without angina pectoris (principal); I10 Essential (primary) hypertension; E78.5 Hyperlipidemia, unspecified; R73.01 Impaired fasting glucose; K21.9 Gastro-esophageal reflux disease without esophagitis; G47.33 Obstructive sleep apnea (adult) (pediatric); E78.00 Pure hypercholesterolemia, unspecified; M54.50 Low back pain, unspecified; M25.541 Pain in joints of right hand; M25.542 Pain in joints of left hand; E66.3 Overweight; Z68.29 Body mass index [BMI] 29.0-29.9, adult | CPT/HCPCS: 96127; 99212 ==